=== PATIENT | male | born 1955 | race Caucasian/White ===

== ENCOUNTER 2018-11-25 23:48 | Inpatient (IN) ==
[2018-11-26] MEDS ORDERED: SODIUM CHLORIDE 0.9% 1000ML 1,000 ML IV ONE ×3 (00:03→08:55)
[2018-11-26] MEDS ORDERED: ONDANSETRON INJ 2 MG/ML 2 ML VIAL IV STA (00:03)
[2018-11-26] MEDS ORDERED: MoRPHine SULFATE 4 MG/ML 1 ML CARP\\VIAL IV STA (00:03)
[2018-11-26 00:18] LABS: iSTAT Hemoglobin 15.6 g/dl (14.0-18.0); iSTAT Ionized Calcium 1.19 mmol/l (1.12-1.32)
[2018-11-26 00:25] LABS: Basophils # (auto) 0.01 K/uL (0-0.2); Basophils % (auto) 0.1 %; Eosinophils # (auto) 0.18 K/uL (0-0.5); Eosinophils % (auto) 1.5 %; Hemoglobin 15.1 g/dL (14.0-18.0); Immature Granulocytes # (auto) 0.02 K/uL (0.00-0.02); Immature Granulocytes % (auto) 0.2 %; Lymphocytes # (auto) 4.19 K/uL (1.2-3.4); Lymphocytes % (auto) 35.6 %; Mean Corpuscular Hgb Conc 34.3 g/dL (32-36); Mean Platelet Volume 11.9 fL (7.4-10.4); Monocytes # (auto) 0.62 K/uL (0.11-0.59); Monocytes % (auto) 5.3 %; Neutrophils # (auto) 6.74 K/uL (1.4-6.5); Neutrophils % (auto) 57.3 %; Platelet Count 259 K/uL (130-400); RDW Coefficient of Variation 13.8 % (11.5-14.5); RDW Standard Deviation 50.7 fL (36.4-46.3); White Blood Count 11.76 K/uL (4.8-10.8)
[2018-11-26] MEDS ORDERED: HYDROmorphone INJ 1 MG/ML SYRINGE IV STA ×3 (00:37→01:15)
[2018-11-26 00:45] LABS: Alanine Aminotransferase 19 U/L (12-78); Aspartate Aminotransferase 17 U/L (15-37); BUN Creatinine Ratio 10.6 (10-20); Blood Urea Nitrogen 22 mg/dl (7-18); Calcium 9.4 mg/dl (8.5-10.1); Carbon Dioxide 24 mmol/L (21-32); Chloride 107 mmol/L (98-107); Creatinine Clr Calc Pharmacy 41.6 ml/min; Est GFR (African American) 38.4; Est GFR (Non-African American) 33.1; Glucose 157 mg/dl (70-99); Potassium 3.4 mmol/L (3.5-5.1); Sodium 140 mmol/L (136-145)
[2018-11-26 00:50] LABS: Albumin Globulin Ratio 1.2 (0.9-2); Alkaline Phosphatase 64 U/L (45-117); Bilirubin,Total 0.4 mg/dl (0.2-1); Globulin 3.4 gm/dl (2.5-4.0); Total Protein 7.4 gm/dl (6.4-8.2); Troponin I < 0.015 ng/ml (0-0.045)
[2018-11-26] MEDS ORDERED: IOVERSOL 100ml IV PRN (00:56)
[2018-11-26] MEDS ORDERED: SODIUM CHLORIDE 0.9% 250 ML IV PRN (01:06)
[2018-11-26] MEDS ORDERED: PIPERACILL/TAZOBAC CONSULT ACTIVE PRN ×2 (01:19→07:48)
[2018-11-26] MEDS ORDERED: PIPERACILLIN/TAZOBACTAM 4.5 GM/120 ML BAG IV ONE (01:19)
[2018-11-26] MEDS ORDERED: LORazepam 2 MG/4 ML VIAL ONE (01:26)
[2018-11-26] MEDS ORDERED: LORazepam 1 MG/2 ML VIAL IV STA ×2 (01:27→01:46)
[2018-11-26 01:43] LABS: Appearance Urine Clear (Clear); Bacteria Urine Automated Negative (Negative); Bilirubin Urine Negative (Negative); Color Urine Yellow; Epithelial Cell Urine Auto 0-5 /lpf (0-5); Glucose Urine UA Negative (Negative); Ketones Urine Negative (Negative); Leukocyte Esterase Urine Negative (Negative); Nitrite Urine Negative (Negative); Protein Urine Negative (Negative); Specific Gravity Urine 1.015 (1.000-1.030); Urobilinogen Urine Negative (Negative); pH Urine 5.5 (4.5-7.5)
[2018-11-26 02:02] LABS: Creatine Kinase 68 U/L (39-308)
[2018-11-26] MEDS ORDERED: POTASSIUM CHLORIDE 20 MEQ TABCR PO STA (02:03)
[2018-11-26] MEDS ORDERED: AMLODIPINE BESYLATE 5 MG TAB PO STA (02:08)
[2018-11-26 02:21] LABS: Magnesium 2.4 mg/dl (1.8-2.4)
[2018-11-26 02:27] LABS: Allen Test Pos (Pos); HCO3 ABG 22 mmol/L (19-24); PCO2 ABG 47 mmHg (35-46); PO2 ABG 87 mm/Hg (80-95)
[2018-11-26 02:28] LABS: Amphetamines+Metham, Urine Neg (Neg); Barbiturates, Urine Neg (Neg); Benzodiazepine, Urine Neg (Neg); Cocaine, Urine Neg (Neg); MDMA (Ecstacy), Urine Neg (Neg); Methadone, Urine Neg (Neg); Opiate, Urine Neg (Neg); Phencyclidine, Urine Neg (Neg)
[2018-11-26 02:42] LABS: Partial Thromboplastin Ratio 0.8; Partial Thromboplastin Time 20.8 Seconds (21.0-31.0)
[2018-11-26 02:43] LABS: Calcium 8.2 mg/dl (8.5-10.1); Creatinine Clr Calc Pharmacy 47.8 ml/min; Est GFR (African American) 45.4; Est GFR (Non-African American) 39.2; Potassium 3.7 mmol/L (3.5-5.1)
--- NOTE | 2018-11-26 02:46 | History & Physical Report ---
Date of Service November 26, 2018 Assessment & Plan (1) Hypertensive urgency: Secondary to abdominal symptoms hx HTN as per outpatient records, medication noncompliance. Abdominal pain secondary to urinary retention causing bilateral hydroureteronephrosis Rule out cholecystitis given gallbladder distention on CT No jose sepsis for now ARF secondary to obstructive uropathy Hyperglycemia rule out DM past alcohol abuse Ongoing tobacco abuse Medical telemetry for uncontrolled blood pressure Initiate Norvasc (patient agrees to take in the hospital for now ) analgesia Gallbladder ultrasound rule out cholecystitis Maintain Bynum catheter for now urology consult RE obstructive uropathy Check hemoglobin A1c nicotine patch PRN DVT prophylaxis. SCDs for now, patient may need surgical intervention for gallbladder if cholecystitis found Full code Patient requesting to be set up with [facility] for PCP services on discharge. History of Present Illness Chief Complaint: Abdominal pain Primary Care Provider: No PCP History obtained from patient and records. Medical history significant for hypertension, ongoing tobacco abuse, past tobacco abuse. Few days history of achy upper abdominal pain going down with nausea, emesis. No chest pain, no S OB no cough symptoms. No fever, no chills. Good BM. Denies urinary retention. Patient admits to taking 's home Suboxone prescription due to intractable pain. Patient consulted ER for intractable symptoms. At the ER, Bynum catheter placed for urinary retention subsequently emptying 2 L of urine. Patient currently more comfortable. 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 Allergies Allergy/AdvReac Type Severity Reaction Status Date / Time No Known Allergies Allergy Unverified 11/26/18 00:21 Home Medications Home Medications Medication Instructions Recorded Confirmed Type No Known Home Medications 11/26/18 11/26/18 History Past Med/Surg History Medical History No acute medical problems Social History Preferred Language: Mauritian Communication Ability: Effective Insurance Application Investigator Required: No Beliefs That Will Affect Care: None Current Living Situation: Spouse Current Living Situation Comment: WITH Other Information That Helps Us Care for You: No Feels Safe at Home: Yes Safety Concerns: Feels Safe At This Time Smoking Status: Current every day smoker Tobacco Type: cigarettes Cigarettes Per Day: 20 PER DAY/1 PACK A DAY Do You Dip or Chew Tobacco: No Second Hand Exposure: No Tobacco Cessation Education Requested by Patient: No Hx Alcohol Use: No Hx Substance Use: No Review of Systems Review of Systems: As per HPI, all 10 systems reviewed, all other ROS negative Physical Exam Physical Exam: GENERAL: Slightly uncomfortable, no respiratory distress, tremulous SKIN: Normal color, warm HEENT: Roberta palpebral conjunctivae, no ptosis, dry buccal mucosa NECK : Supple, no tenderness CHEST : CTA, no tenderness HEART : Tachycardic, no obvious murmurs ABDOMEN: Some distention, epigastric tenderness EXTREMITIES : No LE swelling/tenderness, no other conspicuous deformities noted NEUROLOGIC : Coherent, no facial asymmetry, tremulous Results & Data Vital Signs (Past 12 Hours) Vital Signs Pulse Pulse Resp BP BP Pulse Ox 11/26/18 02:00 102 H 18 157/72 H 94 11/26/18 01:31 104 H 20 190/109 H 94 11/26/18 01:29 22 96 11/26/18 01:16 104 H 142/113 H 98 11/26/18 01:15 104 H 97 11/26/18 01:12 109 H 149/109 H 89 L 11/26/18 01:01 97 H 29 H 169/96 H 11/26/18 00:59 101 H 23 152/100 H 11/26/18 00:50 102 H 22 152/100 H 92 11/26/18 00:45 103 H 24 11/26/18 00:40 96 H 25 H 11/26/18 00:38 143/110 H 11/26/18 00:07 97 11/25/18 23:55 83 20 145/88 H 94 11/25/18 23:51 90 28 H 145/88 H 97 Laboratory Results Laboratory Results WBC 11.76 K/uL (4.8-10.8) H 11/25/18 23:28 RBC 4.40 M/uL (4.7-6.1) L 11/25/18 23:28 Hgb 15.1 g/dL (14.0-18.0) 11/25/18 23:28 POC Hgb 15.6 g/dl (14.0-18.0) 11/26/18 00:06 Hct 44.0 % (42-52) 11/25/18 23: POC Hct 46 % (42-52) 11/26/18 00:06 MCV 100.0 fL (80-100) 11/25/18 23: MCH 34.3 pg (25-34) H 11/25/18 23: MCHC 34.3 g/dL (32-36) 11/25/18: RDW Std Deviation 50.7 fL (36.4-46.3) H 11/25/18: RDW Coeff of Carla 13.8 % (11.5-14.5) 11/25/18: Plt Count 259 K/uL (130-400) 11/25/18: MPV 11.9 fL (7.4-10.4) H 11/25/18 23: Immature Gran % (Auto) 0.2 % 11/25/18 23: Neut % (Auto) 57.3 % 11/25/18 23: Lymph % (Auto) 35.6 % 11/25/18 23: Dougherty % (Auto) 5.3 % 11/25/18 23: Eos % (Auto) 1.5 % 11/25/18: Baso % (Auto) 0.1 % 11/25/18: Immature Gran # (Auto) 0.02 K/uL (0.00-0.02) 11/25/18: Neut # (Auto) 6.74 K/uL (1.4-6.5) H 11/25/18: Lymph # (Auto) 4.19 K/uL (1.2-3.4) H 11/25/18 23:28 Dougherty # (Auto) 0.62 K/uL (0.11-0.59) H 11/25/18: Eos # (Auto) 0.18 K/uL (0-0.5) 11/25/18: Baso # (Auto) 0.01 K/uL (0-0.2) 11/25/18 23: ABG pH 7.30 (7.35-7.45) L 11/26/18 02:17 ABG pCO2 47 mmHg (35-46) H 11/26/18 02:17 ABG pO2 87 mm/Hg (80-95) 11/26/18 02:17 ABG HCO3 22 mmol/L (19-24) 11/26/18 02:17 ABG O2 Saturation 96.0 % (90-95) H 11/26/18 02:17 ABG Base Excess -4.2 mEq/L (-9-1.8) 11/26/18 02:17 Jay Test Pos (Pos) 11/26/18 02:17 Oxygen Given 3L 11/26/18 02:17 POC Sodium 142 mEq/L (135-144) 11/26/18 00:06 Sodium 142 mmol/L (136-145) 11/26/18 02:08 POC Potassium 3.5 mEq/L (3.3-5.0) 11/26/18 00:06 Potassium 3.7 mmol/L (3.5-5.1) 11/26/18 02:08 POC Chloride 105 mEq/L (101-112) 11/26/18 00:06 Chloride 111 mmol/L (98-107) H 11/26/18 02:08 Carbon Dioxide 25 mmol/L (21-32) 11/26/18 02:08 POC Total CO2 25 mEq/l (24-31) 11/26/18 00:06 Anion Gap 6.0 (3-11) 11/26/18 02:08 POC Anion Gap 16.0 mmol/L (16-25) 11/26/18 00:06 POC BUN 25 mg/dl (7-18) H 11/26/18 00:06 BUN 22 mg/dl (7-18) H 11/26/18 02:08 Creatinine 1.81 mg/dl (0.6-1.4) H 11/26/18 02:08 POC Creatinine 2.2 mg/dl (0.6-1.3) H 11/26/18 00:06 Est Cr Clr Drug Dosing 47.8 ml/min 11/26/18 02:08 Est GFR ( Amer) 45.4 11/26/18 02:08 Est GFR (Non-Af Amer) 39.2 11/26/18 02:08 BUN/Creatinine Ratio 12.0 (10-20) 11/26/18 02:08 Glucose 185 mg/dl (70-99) H 11/26/18 02:08 POC Glucose (other) 171 mg/dl (70-99) H 11/26/18 00:06 Lactate 1.9 mmol/L (0.4-2.0) 11/26/18 02:17 Calcium 8.2 mg/dl (8.5-10.1) L 11/26/18 02:08 POC Ioniz Calcium Damon 1.19 mmol/l (1.12-1.32) 11/26/18 00:06 Magnesium 2.4 mg/dl (1.8-2.4) 11/25/18 23:28 Total Bilirubin 0.4 mg/dl (0.2-1) 11/25/18 23:28 AST 17 U/L (15-37) 11/25/18 23:28 ALT 19 U/L (12-78) 11/25/18 23:28 Alkaline Phosphatase 64 U/L (45-117) 11/25/18 23:28 Total Creatine Kinase 68 U/L (39-308) 11/25/18 23:28 Troponin I < 0.015 ng/ml (0-0.045) 11/25/18 23:28 Total Protein 7.4 gm/dl (6.4-8.2) 11/25/18 23:28 Albumin 4.0 gm/dl (3.4-5.0) 11/25/18 23:28 Globulin 3.4 gm/dl (2.5-4.0) 11/25/18 23:28 Albumin/Globulin Ratio 1.2 (0.9-2) 11/25/18 23:28 Lipase 128 U/L (73-393) 11/25/18 23:28 TSH 5.320 uIu/ml (0.300-4.500) H 11/25/18 23:28 Urine Color Yellow 11/26/18 01:18 Urine Appearance Clear (Clear) 11/26/18 01:18 Urine pH 5.5 (4.5-7.5) 11/26/18 01:18 Ur Specific [place] 1.015 (1.000-1.030) 11/26/18 01:18 Urine Protein Negative (Negative) 11/26/18 01:18 Urine Glucose (UA) Negative (Negative) 11/26/18 01:18 Urine Ketones Negative (Negative) 11/26/18 01:18 Urine Blood 1+ (Negative) H 11/26/18 01:18 Urine Nitrite Negative (Negative) 11/26/18 01:18 Urine Bilirubin Negative (Negative) 11/26/18 01:18 Urine Urobilinogen Negative (Negative) 11/26/18 01:18 Ur Leukocyte Esterase Negative (Negative) 11/26/18 01:18 Urine WBC (Auto) 1-5 /hpf (0-5) 11/26/18 01:18 Urine RBC (Auto) 5-10 /hpf (0-4) H 11/26/18 01:18 U Hyaline Cast (Auto) 1-5 /lpf (0-5) 11/26/18 01:18 U Epithel Cells (Auto) 0-5 /lpf (0-5) 11/26/18 01:18 Urine Bacteria (Auto) Negative (Negative) 11/26/18 01:18 Urine Opiates Screen Neg (Neg) 11/26/18 01:18 Ur Methadone, Qual Neg (Neg) 11/26/18 01:18 Urine Barbiturates Neg (Neg) 11/26/18 01:18 Ur Phencyclidine (PCP) Neg (Neg) 11/26/18 01:18 U Amphetamin/Meth Scrn Neg (Neg) 11/26/18 01:18 MDMA (Ecstasy) Screen Neg (Neg) 11/26/18 01:18 U Benzodiazepines Scrn Neg (Neg) 11/26/18 01:18 Ur Cocaine Metabolite Neg (Neg) 11/26/18 01:18 U Marijuana (THC) Screen Neg (Neg) 11/26/18 01:18 Ethyl Alcohol mg/dL < 3.0 mg/dl (0-3) 11/26/18 02:08 Blood Type O Positive 11/26/18 00:38 Antibody Screen NEGATIVE 11/26/18 00:38 Crossmatch See Detail 11/26/18 00:38 Diagnostic Findings Chest initial read: No central PE. No consolidation. Dependent atelectasis, posterior lower lobes. Paraseptal emphysema. CT abdomen pelvis initial read. Moderate bilateral hydroureteronephrosis. Bilateral renal cysts. No shadowing renal calculi. Distended gallbladder. Distended bladder with adjacent stranding. No colitis. Small perihepatic ascites/perisplenic ascites. EKG as per my interpretation rate 80, NSR, RAD, T wave flattening septal leads
[2018-11-26] MEDS ORDERED: LORazepam 0.25 MG/0.5 ML VIAL IV PRN (02:49)
[2018-11-26] MEDS ORDERED: PROMETHAZINE HCL 12.5 MG in SODIUM CHLORIDE 0.9% 50 ML IV PRN (02:49)
[2018-11-26] MEDS ORDERED: HYDROmorphone INJ 0.5 MG/0.5 ML SYR IV PRN (02:49)
[2018-11-26] MEDS ORDERED: OXYCODONE HCL IR 5 MG TAB (IMMEDIATE RELEASE) PO PRN (02:49)
[2018-11-26] MEDS ORDERED: ACETAMINOPHEN 325 MG TAB PO PRN (02:53)
[2018-11-26] MEDS ORDERED: LACTATED RINGER'S 1,000 ML IV SCH (03:00)
--- NOTE | 2018-11-26 03:12 | Emergency Department Note ---
History of Present Illness General Chief complaint: Abdominal Pain Stated complaint: syncope History of Present Illness Maximum Pain Intensity: 10 This 63-year-old presents to the ER complaining of severe abdominal pain with diaphoresis and syncope Location: Abdomen Quality: Severe Severity: Severe Duration: 4 days Timing: Started 4 days ago Context: Patient became diaphoretic and was passing out and EMS was summoned Modifying factors: better with nothing; worse with movement Patient complains of severe abdominal pain with diaphoresis and passing out. Patient does not routinely see the family doctor. No prior surgeries. He smokes. No alcohol or drug use. Patient states he started with epigastric pain and now is throughout his abdomen. Patient states it is so severe his abdomen is distended and he can barely breathe. Patient states he is urinating and defecating without issue. Patient denies chest pain, fevers, vomiting, diarrhea. Home Medications Home Medications Medication Instructions Recorded Confirmed Type No Known Home Medications 11/26/18 11/26/18 History Allergies Allergy/AdvReac Type Severity Reaction Status Date / Time No Known Allergies Allergy Unverified 11/26/18 00:21 Past Med/Surg History Medical History No acute medical problems Social History Feels Safe at Home: Yes Smoking Status: Unknown if ever smoked Review of Systems All systems reviewed & are unremarkable except as noted in HPI & below Physical Exam Vital Signs Vital Signs - 24 hr 11/25/18 23:51 11/25/18 23:55 11/26/18 00:07 Sepsis Recent Fever Within 48 Hours No Sepsis New/Unexplained Change in Mental Status No Sepsis Action Taken by Nursing No Action Required Pulse Rate 90 83 Pulse Rate [Bilateral] Pulse Rate from SpO2 Sensor 90 91 H Pulse Rhythm [Bilateral] Respiratory Rate 28 H 20 Respiratory Effort / Characteristics Respiratory Depth Normal Respiratory Pattern Blood Pressure 145/88 H 145/88 H Blood Pressure [Right Arm] Blood Pressure Mean 107 107 Blood Pressure Mean [Right Arm] Blood Pressure Position [Right Arm] Pulse Oximetry 97 94 97 Oxygen Delivery Method Room Air Oxygen Flow Rate 11/26/18 00:38 11/26/18 00:40 11/26/18 00:45 Sepsis Recent Fever Within 48 Hours Sepsis New/Unexplained Change in Mental Status Sepsis Action Taken by Nursing Pulse Rate 96 H 103 H Pulse Rate [Bilateral] Pulse Rate from SpO2 Sensor Pulse Rhythm [Bilateral] Respiratory Rate 25 H 24 Respiratory Effort / Characteristics Respiratory Depth Respiratory Pattern Blood Pressure 143/110 H Blood Pressure [Right Arm] Blood Pressure Mean 121 Blood Pressure Mean [Right Arm] Blood Pressure Position [Right Arm] Pulse Oximetry Oxygen Delivery Method Oxygen Flow Rate 11/26/18 00:50 11/26/18 00:59 11/26/18 01:01 Sepsis Recent Fever Within 48 Hours Sepsis New/Unexplained Change in Mental Status Sepsis Action Taken by Nursing Pulse Rate 101 H 97 H Pulse Rate [Bilateral] 102 H Pulse Rate from SpO2 Sensor Pulse Rhythm [Bilateral] Respiratory Rate 22 23 29 H Respiratory Effort / Characteristics Non-Labored Spontaneous Respiratory Depth Normal Respiratory Pattern Blood Pressure 152/100 H 169/96 H Blood Pressure [Right Arm] 152/100 H Blood Pressure Mean 117 120 Blood Pressure Mean [Right Arm] 117 Blood Pressure Position [Right Arm] Lying Pulse Oximetry 92 Oxygen Delivery Method Room Air Oxygen Flow Rate 11/26/18 01:12 11/26/18 01:15 11/26/18 01:16 Sepsis Recent Fever Within 48 Hours Sepsis New/Unexplained Change in Mental Status Sepsis Action Taken by Nursing Pulse Rate 109 H 104 H 104 H Pulse Rate [Bilateral] Pulse Rate from SpO2 Sensor 109 H 104 H 103 H Pulse Rhythm [Bilateral] Respiratory Rate Respiratory Effort / Characteristics Respiratory Depth Respiratory Pattern Blood Pressure 149/109 H 142/113 H Blood Pressure [Right Arm] Blood Pressure Mean 122 122 Blood Pressure Mean [Right Arm] Blood Pressure Position [Right Arm] Pulse Oximetry 89 L 97 98 Oxygen Delivery Method Room Air Oxygen Flow Rate 11/26/18 01:29 11/26/18 01:31 11/26/18 02:00 Sepsis Recent Fever Within 48 Hours Sepsis New/Unexplained Change in Mental Status Sepsis Action Taken by Nursing Pulse Rate Pulse Rate [Bilateral] 104 H 102 H Pulse Rate from SpO2 Sensor Pulse Rhythm [Bilateral] Regular Respiratory Rate 22 20 18 Respiratory Effort / Characteristics Non-Labored Spontaneous Non-Labored Spontaneous Respiratory Depth Normal Normal Respiratory Pattern Regular Blood Pressure Blood Pressure [Right Arm] 190/109 H 157/72 H Blood Pressure Mean Blood Pressure Mean [Right Arm] 136 100 Blood Pressure Position [Right Arm] Lying Pulse Oximetry 96 94 94 Oxygen Delivery Method Nasal Cannula Nasal Cannula Nasal Cannula Oxygen Flow Rate 3 4 2 VITALS: Vitals are noted on the nurse's note and reviewed by myself. Vital signs tachycardic. GENERAL: Pale diaphoretic male who appears in acute distress. SKIN: Diaphoretic, the skin was without rashes, erythema, edema, or bruising. There is no tenting of the skin. Capillary reflex less than 2 seconds. HEAD: Normocephalic atraumatic. EARS: External auditory canals clear, tympanic membranes pearly taylor without erythema or effusion bilaterally. EYES: Pupils equal round and reactive to light and accommodation. Conjunctivae without injection, sclerae without icterus. Extraocular movements intact. NOSE: Patent, turbinates without inflammation or discharge. MOUTH: Mucous membranes moist. Pharynx without erythema or exudate. Uvula midline. Airway patent. Tongue does not deviate. NECK: Supple without nuchal rigidity. No lymphadenopathy. No thyromegaly. Cervical spine is nontender. No JVD. HEART: Regular rate and rhythm without murmurs gallops or rubs. LUNGS: Clear to auscultation bilaterally without wheezes, rales or rhonchi. No retractions or accessory muscle use. ABDOMEN: Positive bowel sounds x 4. Normal tympanic percussion. Soft, distended, diffusely tender to palpation, without masses or organomegaly. Red sign negative. No guarding or rebound tenderness. No CVA tenderness MUSCULOSKELETAL: No muscle atrophy, erythema, or edema noted. NEURO: Patient was alert and oriented to person place and time. Normal sensation to light and sharp touch. No focal neurological deficits. Course Administered Medications Ioversol (Optiray 320 100ml) 100 ml IV ONCE PRN PRN Reason: Interaction Checking Stop: 11/30/18 00:55 Last Admin: 11/26/18 00:56 Dose: 51 ml Documented by: [id number] Discontinued Medications Hydromorphone HCl (Dilaudid) 1 mg IV NOW STA Stop: 11/26/18 00:38 Last Admin: 11/26/18 00:45 Dose: 1 mg Documented by: [id number] Hydromorphone HCl (Dilaudid) 1 mg IV NOW STA Stop: 11/26/18 00:51 Last Admin: 11/26/18 00:56 Dose: 1 mg Documented by: [id number] Hydromorphone HCl (Dilaudid) 1 mg IV NOW STA Stop: 11/26/18 01:16 Last Admin: 11/26/18 01:20 Dose: 1 mg Documented by: [id number] Sodium Chloride (Nss 1000ml) 1,000 mls @ 999 mls/hr IV .Q1H1M ONE Stop: 11/26/18 01:03 Last Infusion: 11/26/18 01:35 Dose: 0 mls/hr Documented by: [id number] Admin: 11/26/18 00:42 Dose: 999 mls/hr Documented by: [id number] Sodium Chloride (Nss 1000ml) 1,000 mls @ 999 mls/hr IV .Q1H1M ONE Stop: 11/26/18 01:37 Last Infusion: 11/26/18 02:08 Dose: 0 mls/hr Documented by: [id number] Admin: 11/26/18 00:46 Dose: 999 mls/hr Documented by: [id number] Piperacillin Sod/Tazobactam Sod (Zosyn) 4.5 gm in 120 mls @ 240 mls/hr IV NOW ONE Stop: 11/26/18 01:48 Last Infusion: 11/26/18 03:07 Dose: 0 mls/hr Documented by: [id number] Admin: 11/26/18 01:28 Dose: 240 mls/hr Documented by: [id number] Lorazepam (Ativan) 1 mg in 2 mls @ 2 mls/min IV NOW STA Stop: 11/26/18 01:28 Last Admin: 11/26/18 01:29 Dose: Not Given Documented by: [id number] Lorazepam (Ativan) 1 mg in 2 mls @ 2 mls/min IV NOW STA Stop: 11/26/18 01:47 Last Admin: 11/26/18 01:49 Dose: 2 mls/min Documented by: [id number] Lorazepam (Ativan) Confirm Administered Dose 2 mg .ROUTE .STK-MED ONE Stop: 11/26/18 01:27 Last Admin: 11/26/18 01:28 Dose: 2 mg Documented by: [id number] Morphine Sulfate (Morphine Sulfate) 4 mg IV NOW STA Stop: 11/26/18 00:04 Last Admin: 11/26/18 00:42 Dose: 4 mg Documented by: [id number] Ondansetron HCl (Zofran) 4 mg IV NOW STA Stop: 11/26/18 00:04 Last Admin: 11/26/18 00:42 Dose: 4 mg Documented by: [id number] Medical Decision Making Medical Records Attestation: I reviewed the patient's medical records. Home Medications Current Medication List: was personally reviewed by me Laboratory Data Result diagrams: 11/25/18 23:28 11/26/18 02:08 Lab Results 11/25/18 11/25/18 11/25/18 Range/Units 23:28 23:28 23:28 WBC 11.76 H (4.8-10.8) K/uL RBC 4.40 L (4.7-6.1) M/uL Hgb 15.1 (14.0-18.0) g/dL POC Hgb (14.0-18.0) g/dl Hct 44.0 (42-52) % POC Hct (42-52) % MCV 100.0 (80-100) fL MCH 34.3 H (25-34) pg MCHC 34.3 (32-36) g/dL RDW Std Deviation 50.7 H (36.4-46.3) fL RDW Coeff of Carla 13.8 (11.5-14.5) % Plt Count 259 (130-400) K/uL MPV 11.9 H (7.4-10.4) fL Immature Gran % (Auto) 0.2 % Neut % (Auto) 57.3 % Lymph % (Auto) 35.6 % [place] % (Auto) 5.3 % Eos % (Auto) 1.5 % Baso % (Auto) 0.1 % Immature Gran # (Auto) 0.02 (0.00-0.02) K/uL Neut # (Auto) 6.74 H (1.4-6.5) K/uL Lymph # (Auto) 4.19 H (1.2-3.4) K/uL [place] # (Auto) 0.62 H (0.11-0.59) K/uL Eos # (Auto) 0.18 (0-0.5) K/uL Baso # (Auto) 0.01 (0-0.2) K/uL APTT 20.8 L (21.0-31.0) Seconds PTT Ratio 0.8 ABG pH (7.35-7.45) ABG pCO2 (35-46) mmHg ABG pO2 (80-95) mm/Hg ABG HCO3 (19-24) mmol/L ABG O2 Saturation (90-95) % ABG Base Excess (-9-1.8) mEq/L Jay Test (Pos) Oxygen Given POC Sodium (135-144) mEq/L Sodium 140 (136-145) mmol/L POC Potassium (3.3-5.0) mEq/L Potassium 3.4 L (3.5-5.1) mmol/L POC Chloride (101-112) mEq/L Chloride 107 (98-107) mmol/L Carbon Dioxide 24 (21-32) mmol/L POC Total CO2 (24-31) mEq/l Anion Gap 9.0 (3-11) POC Anion Gap (16-25) mmol/L POC BUN (7-18) mg/dl BUN 22 H (7-18) mg/dl Creatinine 2.08 H (0.6-1.4) mg/dl POC Creatinine (0.6-1.3) mg/dl Est Cr Clr Drug Dosing 41.6 ml/min Est GFR ( Amer) 38.4 Est GFR (Non-Af Amer) 33.1 BUN/Creatinine Ratio 10.6 (10-20) Glucose 157 H (70-99) mg/dl POC Glucose (other) (70-99) mg/dl Lactate (0.4-2.0) mmol/L Calcium 9.4 (8.5-10.1) mg/dl POC Ioniz Calcium Damon (1.12-1.32) mmol/l Magnesium 2.4 (1.8-2.4) mg/dl Total Bilirubin 0.4 (0.2-1) mg/dl AST 17 (15-37) U/L ALT 19 (12-78) U/L Alkaline Phosphatase 64 (45-117) U/L Total Creatine Kinase 68 (39-308) U/L Troponin I < 0.015 (0-0.045) ng/ml Total Protein 7.4 (6.4-8.2) gm/dl Albumin 4.0 (3.4-5.0) gm/dl Globulin 3.4 (2.5-4.0) gm/dl Albumin/Globulin Ratio 1.2 (0.9-2) Lipase 128 (73-393) U/L Procalcitonin (0-0.5) ng/ml TSH 5.320 H (0.300-4.500) uIu/ml Urine Color Urine Appearance (Clear) Urine pH (4.5-7.5) Ur Specific Graham (1.000-1.030) Urine Protein (Negative) Urine Glucose (UA) (Negative) Urine Ketones (Negative) Urine Blood (Negative) Urine Nitrite (Negative) Urine Bilirubin (Negative) Urine Urobilinogen (Negative) Ur Leukocyte Esterase (Negative) Urine WBC (Auto) (0-5) /hpf Urine RBC (Auto) (0-4) /hpf U Hyaline Cast (Auto) (0-5) /lpf U Epithel Cells (Auto) (0-5) /lpf Urine Bacteria (Auto) (Negative) Urine Opiates Screen (Neg) Ur Methadone, Qual (Neg) Urine Barbiturates (Neg) Ur Phencyclidine (PCP) (Neg) U Amphetamin/Meth Scrn (Neg) MDMA (Ecstasy) Screen (Neg) U Benzodiazepines Scrn (Neg) Ur Cocaine Metabolite (Neg) U Marijuana (THC) Screen (Neg) Ethyl Alcohol mg/dL (0-3) mg/dl Blood Type Antibody Screen Crossmatch 11/25/18 11/26/18 11/26/18 Range/Units 23:28 00:06 00:38 WBC (4.8-10.8) K/uL RBC (4.7-6.1) M/uL Hgb (14.0-18.0) g/dL POC Hgb 15.6 (14.0-18.0) g/dl Hct (42-52) % POC Hct 46 (42-52) % MCV (80-100) fL MCH (25-34) pg MCHC (32-36) g/dL RDW Std Deviation (36.4-46.3) fL RDW Coeff of Carla (11.5-14.5) % Plt Count (130-400) K/uL MPV (7.4-10.4) fL Immature Gran % (Auto) % Neut % (Auto) % Lymph % (Auto) % [place] % (Auto) % Eos % (Auto) % Baso % (Auto) % Immature Gran # (Auto) (0.00-0.02) K/uL Neut # (Auto) (1.4-6.5) K/uL Lymph # (Auto) (1.2-3.4) K/uL [place] # (Auto) (0.11-0.59) K/uL Eos # (Auto) (0-0.5) K/uL Baso # (Auto) (0-0.2) K/uL APTT (21.0-31.0) Seconds PTT Ratio ABG pH (7.35-7.45) ABG pCO2 (35-46) mmHg ABG pO2 (80-95) mm/Hg ABG HCO3 (19-24) mmol/L ABG O2 Saturation (90-95) % ABG Base Excess (-9-1.8) mEq/L Jay Test (Pos) Oxygen Given POC Sodium 142 (135-144) mEq/L Sodium (136-145) mmol/L POC Potassium 3.5 (3.3-5.0) mEq/L Potassium (3.5-5.1) mmol/L POC Chloride 105 (101-112) mEq/L Chloride (98-107) mmol/L Carbon Dioxide (21-32) mmol/L POC Total CO2 25 (24-31) mEq/l Anion Gap (3-11) POC Anion Gap 16.0 (16-25) mmol/L POC BUN 25 H (7-18) mg/dl BUN (7-18) mg/dl Creatinine (0.6-1.4) mg/dl POC Creatinine 2.2 H (0.6-1.3) mg/dl Est Cr Clr Drug Dosing ml/min Est GFR ( Amer) Est GFR (Non-Af Amer) BUN/Creatinine Ratio (10-20) Glucose (70-99) mg/dl POC Glucose (other) 171 H (70-99) mg/dl Lactate (0.4-2.0) mmol/L Calcium (8.5-10.1) mg/dl POC Ioniz Calcium Damon 1.19 (1.12-1.32) mmol/l Magnesium (1.8-2.4) mg/dl Total Bilirubin (0.2-1) mg/dl AST (15-37) U/L ALT (12-78) U/L Alkaline Phosphatase (45-117) U/L Total Creatine Kinase (39-308) U/L Troponin I (0-0.045) ng/ml Total Protein (6.4-8.2) gm/dl Albumin (3.4-5.0) gm/dl Globulin (2.5-4.0) gm/dl Albumin/Globulin Ratio (0.9-2) Lipase (73-393) U/L Procalcitonin 0.06 (0-0.5) ng/ml TSH (0.300-4.500) uIu/ml Urine Color Urine Appearance (Clear) Urine pH (4.5-7.5) Ur Specific [place] (1.000-1.030) Urine Protein (Negative) Urine Glucose (UA) (Negative) Urine Ketones (Negative) Urine Blood (Negative) Urine Nitrite (Negative) Urine Bilirubin (Negative) Urine Urobilinogen (Negative) Ur Leukocyte Esterase (Negative) Urine WBC (Auto) (0-5) /hpf Urine RBC (Auto) (0-4) /hpf U Hyaline Cast (Auto) (0-5) /lpf U Epithel Cells (Auto) (0-5) /lpf Urine Bacteria (Auto) (Negative) Urine Opiates Screen (Neg) Ur Methadone, Qual (Neg) Urine Barbiturates (Neg) Ur Phencyclidine (PCP) (Neg) U Amphetamin/Meth Scrn (Neg) MDMA (Ecstasy) Screen (Neg) U Benzodiazepines Scrn (Neg) Ur Cocaine Metabolite (Neg) U Marijuana (THC) Screen (Neg) Ethyl Alcohol mg/dL (0-3) mg/dl Blood Type O Positive Antibody Screen NEGATIVE Crossmatch See Detail 11/26/18 11/26/18 11/26/18 Range/Units 01:18 01:18 02:08 WBC (4.8-10.8) K/uL RBC (4.7-6.1) M/uL Hgb (14.0-18.0) g/dL POC Hgb (14.0-18.0) g/dl Hct (42-52) % POC Hct (42-52) % MCV (80-100) fL MCH (25-34) pg MCHC (32-36) g/dL RDW Std Deviation (36.4-46.3) fL RDW Coeff of Carla (11.5-14.5) % Plt Count (130-400) K/uL MPV (7.4-10.4) fL Immature Gran % (Auto) % Neut % (Auto) % Lymph % (Auto) % [place] % (Auto) % Eos % (Auto) % Baso % (Auto) % Immature Gran # (Auto) (0.00-0.02) K/uL Neut # (Auto) (1.4-6.5) K/uL Lymph # (Auto) (1.2-3.4) K/uL [place] # (Auto) (0.11-0.59) K/uL Eos # (Auto) (0-0.5) K/uL Baso # (Auto) (0-0.2) K/uL APTT (21.0-31.0) Seconds PTT Ratio ABG pH (7.35-7.45) ABG pCO2 (35-46) mmHg ABG pO2 (80-95) mm/Hg ABG HCO3 (19-24) mmol/L ABG O2 Saturation (90-95) % ABG Base Excess (-9-1.8) mEq/L Jay Test (Pos) Oxygen Given POC Sodium (135-144) mEq/L Sodium 142 (136-145) mmol/L POC Potassium (3.3-5.0) mEq/L Potassium 3.7 (3.5-5.1) mmol/L POC Chloride (101-112) mEq/L Chloride 111 H (98-107) mmol/L Carbon Dioxide 25 (21-32) mmol/L POC Total CO2 (24-31) mEq/l Anion Gap 6.0 (3-11) POC Anion Gap (16-25) mmol/L POC BUN (7-18) mg/dl BUN 22 H (7-18) mg/dl Creatinine 1.81 H (0.6-1.4) mg/dl POC Creatinine (0.6-1.3) mg/dl Est Cr Clr Drug Dosing 47.8 ml/min Est GFR ( Amer) 45.4 Est GFR (Non-Af Amer) 39.2 BUN/Creatinine Ratio 12.0 (10-20) Glucose 185 H (70-99) mg/dl POC Glucose (other) (70-99) mg/dl Lactate (0.4-2.0) mmol/L Calcium 8.2 L (8.5-10.1) mg/dl POC Ioniz Calcium Damon (1.12-1.32) mmol/l Magnesium (1.8-2.4) mg/dl Total Bilirubin (0.2-1) mg/dl AST (15-37) U/L ALT (12-78) U/L Alkaline Phosphatase (45-117) U/L Total Creatine Kinase (39-308) U/L Troponin I (0-0.045) ng/ml Total Protein (6.4-8.2) gm/dl Albumin (3.4-5.0) gm/dl Globulin (2.5-4.0) gm/dl Albumin/Globulin Ratio (0.9-2) Lipase (73-393) U/L Procalcitonin (0-0.5) ng/ml TSH (0.300-4.500) uIu/ml Urine Color Yellow Urine Appearance Clear (Clear) Urine pH 5.5 (4.5-7.5) Ur Specific [place] 1.015 (1.000-1.030) Urine Protein Negative (Negative) Urine Glucose (UA) Negative (Negative) Urine Ketones Negative (Negative) Urine Blood 1+ H (Negative) Urine Nitrite Negative (Negative) Urine Bilirubin Negative (Negative) Urine Urobilinogen Negative (Negative) Ur Leukocyte Esterase Negative (Negative) Urine WBC (Auto) 1-5 (0-5) /hpf Urine RBC (Auto) 5-10 H (0-4) /hpf U Hyaline Cast (Auto) 1-5 (0-5) /lpf U Epithel Cells (Auto) 0-5 (0-5) /lpf Urine Bacteria (Auto) Negative (Negative) Urine Opiates Screen Neg (Neg) Ur Methadone, Qual Neg (Neg) Urine Barbiturates Neg (Neg) Ur Phencyclidine (PCP) Neg (Neg) U Amphetamin/Meth Scrn Neg (Neg) MDMA (Ecstasy) Screen Neg (Neg) U Benzodiazepines Scrn Neg (Neg) Ur Cocaine Metabolite Neg (Neg) U Marijuana (THC) Screen Neg (Neg) Ethyl Alcohol mg/dL (0-3) mg/dl Blood Type Antibody Screen Crossmatch 11/26/18 11/26/18 11/26/18 Range/Units 02:08 02:17 02:17 WBC (4.8-10.8) K/uL RBC (4.7-6.1) M/uL Hgb (14.0-18.0) g/dL POC Hgb (14.0-18.0) g/dl Hct (42-52) % POC Hct (42-52) % MCV (80-100) fL MCH (25-34) pg MCHC (32-36) g/dL RDW Std Deviation (36.4-46.3) fL RDW Coeff of Carla (11.5-14.5) % Plt Count (130-400) K/uL MPV (7.4-10.4) fL Immature Gran % (Auto) % Neut % (Auto) % Lymph % (Auto) % [place] % (Auto) % Eos % (Auto) % Baso % (Auto) % Immature Gran # (Auto) (0.00-0.02) K/uL Neut # (Auto) (1.4-6.5) K/uL Lymph # (Auto) (1.2-3.4) K/uL [place] # (Auto) (0.11-0.59) K/uL Eos # (Auto) (0-0.5) K/uL Baso # (Auto) (0-0.2) K/uL APTT (21.0-31.0) Seconds PTT Ratio ABG pH 7.30 L (7.35-7.45) ABG pCO2 47 H (35-46) mmHg ABG pO2 87 (80-95) mm/Hg ABG HCO3 22 (19-24) mmol/L ABG O2 Saturation 96.0 H (90-95) % ABG Base Excess -4.2 (-9-1.8) mEq/L Jay Test Pos (Pos) Oxygen Given 3L POC Sodium (135-144) mEq/L Sodium (136-145) mmol/L POC Potassium (3.3-5.0) mEq/L Potassium (3.5-5.1) mmol/L POC Chloride (101-112) mEq/L Chloride (98-107) mmol/L Carbon Dioxide (21-32) mmol/L POC Total CO2 (24-31) mEq/l Anion Gap (3-11) POC Anion Gap (16-25) mmol/L POC BUN (7-18) mg/dl BUN (7-18) mg/dl Creatinine (0.6-1.4) mg/dl POC Creatinine (0.6-1.3) mg/dl Est Cr Clr Drug Dosing ml/min Est GFR ( Amer) Est GFR (Non-Af Amer) BUN/Creatinine Ratio (10-20) Glucose (70-99) mg/dl POC Glucose (other) (70-99) mg/dl Lactate 1.9 (0.4-2.0) mmol/L Calcium (8.5-10.1) mg/dl POC Ioniz Calcium Damon (1.12-1.32) mmol/l Magnesium (1.8-2.4) mg/dl Total Bilirubin (0.2-1) mg/dl AST (15-37) U/L ALT (12-78) U/L Alkaline Phosphatase (45-117) U/L Total Creatine Kinase (39-308) U/L Troponin I (0-0.045) ng/ml Total Protein (6.4-8.2) gm/dl Albumin (3.4-5.0) gm/dl Globulin (2.5-4.0) gm/dl Albumin/Globulin Ratio (0.9-2) Lipase (73-393) U/L Procalcitonin (0-0.5) ng/ml TSH (0.300-4.500) uIu/ml Urine Color Urine Appearance (Clear) Urine pH (4.5-7.5) Ur Specific [place] (1.000-1.030) Urine Protein (Negative) Urine Glucose (UA) (Negative) Urine Ketones (Negative) Urine Blood (Negative) Urine Nitrite (Negative) Urine Bilirubin (Negative) Urine Urobilinogen (Negative) Ur Leukocyte Esterase (Negative) Urine WBC (Auto) (0-5) /hpf Urine RBC (Auto) (0-4) /hpf U Hyaline Cast (Auto) (0-5) /lpf U Epithel Cells (Auto) (0-5) /lpf Urine Bacteria (Auto) (Negative) Urine Opiates Screen (Neg) Ur Methadone, Qual (Neg) Urine Barbiturates (Neg) Ur Phencyclidine (PCP) (Neg) U Amphetamin/Meth Scrn (Neg) MDMA (Ecstasy) Screen (Neg) U Benzodiazepines Scrn (Neg) Ur Cocaine Metabolite (Neg) U Marijuana (THC) Screen (Neg) Ethyl Alcohol mg/dL < 3.0 (0-3) mg/dl Blood Type Antibody Screen Crossmatch Imaging Data Attestation: I personally reviewed and interpreted this imaging study as follows: MDM Narrative Prior records/ancillary studies reviewed. Triage Nursing notes reviewed. Additional history obtained from family. The patient's history was concerning for syncope with diaphoresis and abdominal pain Differential diagnosis: Etiologies such as dissection, fracture, dislocation, intra-abdominal, pneumothorax, intrathoracic , intracranial, neurologic, as well as other traumatic pathologies were entertained. Physical examination findings: As above. The patients vitals were tachycardic ER treatment provided: IV Normal Saline hydration, 2000 mL. 2 IV lines Morphine, Dilaudid, Ativan Antibiotics: Zosyn Procedures: FAST exam On reassessment the patient felt better. Vital signs were improved. Diagnostic interpretation by me: A bedside F.A.S.T ultrasound was performed by me and revealed free fluid in the abdomen. I did notify my attending immediately who did come in the room and visualize the free fluid on ultrasound. A 12 lead ECG revealed no emergent pathology. Normal sinus, normal intervals, no acute ST-T wave changes. Impression sinus tachycardia interpreted by myself I think arrhythmia is unlikely. EKG shows normal sinus rhythm with no interval abnormalities such as QT prolongation or WPW. There are no findings to suggest Brugada syndrome. Cardiac monitoring in the emergency department reveals no tachycardic or bradycardic dysrhythmia. Hypertrophic cardiomyopathy was considered but there are no clear historical elements pointing toward this. EKG is not suggestive. The QRS voltage is not extremely large and there are no suggestive Q waves. The labs revealed leukocytosis. Elevated creatinine. Blood bank sent and patient was typed and crossmatched and consented to blood if needed Imaging studies: CT CHEST With Contrast: No central PE. No consolidation, pleural effusion or pneumothorax. Dependent atelectasis at the posterior lower lobes. Paraseptal emphysema. Please refer to same day CT abdomen pelvis for findings below the diaphragm. No suspicious lytic or sclerotic lesions of bone. Radiologist: Jj Contreras M.D. CT ABDOMEN & PELVIS With Contrast: Moderate bilateral hydroureteronephrosis. Bilateral renal cysts. No shadowing renal calculi or other urolithiasis. Distended gallbladder as well as bladder, both with adjacent stranding. No small bowel obstruction. No colitis. Distal colonic diverticulosis but no acute diverticulitis. Small perihepatic ascites and perisplenic ascites. Few scattered small hepatic hypodensities. Radiologist: Francheska Gallardo Bynum catheter was placed. Urine was sent. Large amount of urine was removed. Consultation: A consultation was placed with the surgeon, Dr. Duncan. The case was discussed and diagnostics were reviewed. He was called in prior to the CT imaging being read by stat read. There were 2 traumas at the same time. He came in for the trauma and did evaluate my patient. He states is nothing surgical recommends medical admission. Dr. Cooper was consulted and will evaluate the patient. Case was reviewed with him. This appears to be consistent with urinary retention with ascites and hydronephrosis with acute renal failure. Medicine was consulted. They will evaluate the patient. Surgery states there is nothing surgical. Patient was reevaluated multiple times. The free fluid on the fast most likely is the ascites. Patient was typed and screened and consented to blood if needed. Patient is agreeable treatment plan of admission. My attending was made immediately aware of this patient duration. Patient was pale diaphoretic and had extreme abdominal pain upon initial evaluation. He did improve after medica tion and Bynum placement. By the evaluation outlined above emergent etiologies such as fracture, dislocation, pneumothorax, pulmonary contusion, hemothorax, intracranial, neurologic,as well as others were deemed relatively unlikely. The pt informed about the findings as listed above. All questions were answered and pleased with the treatment. Case reviewed with my attending The chart was completed utilizing [employer] Speech voice recognition software. Grammatical errors, random word insertions, pronoun errors, and incomplete sentences are an occassional consequence of this system due to software limitations, ambient noise, and hardware issues. Any formal questions or concerns about the content, text, or information contained within the body of this dictation should be directly addressed to the physician clerical administrative assistant for clarification. Impression & Plan Acute urinary retention, Acute renal failure, Syncope Discharge Plan Visit Data Chief Complaint: Abdominal Pain Stated Complaint: syncope ED Provider: Ivan Smith ED Midlevel Provider: Teresa Chamorro Discharge Problem: Acute urinary retention, Acute renal failure, Syncope Patient Disposition: Admitted As Inpatient Condition: Fair Forms Stand Alone Forms: Call Back Authorization, [facility] Prescriptions Prescriptions: No Action No Known Home Medications RF: 0 Referrals Referrals: PCP,NO [Primary Care Provider] -
[2018-11-26 06:59] LABS: Estimated Average Glucose 120 mg/dl
--- NOTE | 2018-11-26 07:29 | XRay Report ---
XR chest 1V portable HISTORY: Severe epigastric pain. COMPARISON: None. FINDINGS: Right basilar linear densities likely representing subsegmental atelectasis. Otherwise, the lungs are clear. No pleural effusions. No pneumothorax. The heart is normal in size. Tortuous thorac ic aorta. IMPRESSION: Right basilar linear densities suggestive of subsegmental atelectasis. Otherwise, no acute process wi thin the chest. Electronically signed by: Jameson Bailon M.D. 11/26/2018 7:27 AM
--- NOTE | 2018-11-26 07:47 | CT Scan Report ---
ABDOMEN AND PELVIS CT WITH IV CONTRAST CT DOSE: HISTORY: Severe abdominal pain. TECHNIQUE: Multiaxial CT images of the abdomen and pelvis were performed following the use of intrave nous contrast. A dose lowering technique was utilized adhering to the principles of ALARA. COMPARISON STUDY: None. FINDINGS: Groundglass densities at the lung bases suggestive of mild dependent change. Small foci of pneumoperitoneum within the upper abdomen. Focal thickening and inflammatory change at the duodenal b ulb. There appears to be a small focal ulceration at the duodenal bulb with a small air-fluid level b est seen on image 150. Therefore, these findings likely represent a perforated duodenal ulcer. This l ikely results in the pneumoperitoneum. Small amount of upper abdominal ascites. The pancreas, spleen, and adrenal glands are unremarkable. Distended gallbladder. Hepatic and renal hypodense lesions. The se favor cysts. No retroperitoneal lymphadenopathy. Moderate to severe bilateral hydroureteronephrosi s to the level of the ureterovesical junctions. The bladder is also severely distended. Linear septat ion along the posterior aspect of the mid bladder. Therefore, the upper half of the bladder likely re presents a large diverticulum. The prostate gland is normal in size. No evidence for bowel obstructio n. Colonic diverticulosis. No evidence for diverticulitis. IMPRESSION: 1. Inflammatory change and a small air-fluid level surrounding the thickened duodenal bulb. There is also a small amount of pneumoperitoneum. And a small amount of upper abdominal ascites. Therefore, th pamela findings are highly suspicious for a perforated duodenal ulcer. 2. Moderate to severe bilateral hydroureteronephrosis with a severely distended bladder. This suggest s a bladder outlet obstruction. 3.Distended gallbladder. 4. Additional findings as described above. 5. These findings were discussed with Dr. Odonnell at 7:40 AM on 11/26/2018. Electronically signed by: Jameson Bailon M.D. 11/26/2018 7:45 AM
--- NOTE | 2018-11-26 08:06 | CT Scan Report ---
CHEST CT WITH CONTRAST CT DOSE: 878.62 mGy.cm HISTORY: Acute severe epigastric abdominal pain severe epi pain TECHNIQUE: Multiaxial CT images of the chest were performed following the intravenous administration of contrast. A dose lowering technique was utilized adhering to the principles of ALARA. COMPARISON: CT abdomen and pelvis of same day. FINDINGS: Homogeneous thyroid. Trace pericardial effusion. The heart is normal in size. Coronary arterial calci fications are noted. There is no thoracic aortic aneurysm identified. Tortuosity of the descending th oracic aorta. Partially opacified pulmonary arterial tree is unremarkable. No adenopathy. No pneumothorax or pleural effusion. Emphysema. Mild dependent subsegmental bibasilar atelectasis. Mi ld cystic/varicose bronchiectasis of the upper lobes. Dependent bibasilar groundglass opacities sugge st atelectasis. There is no overt pulmonary edema. 2 mm solid nodule of the right lung apex on image 50 series 6. 3 mm solid nodule right upper lobe on image 1:15 series 6. A few additional scattered so lid nodules are seen measuring up to 3 mm. Central airways appear patent. No focal airspace consolida tion typical for pneumonia. Scattered foci of pneumoperitoneum of the upper abdomen. Trace upper abdominal ascites. 9 mm hypodens e lesion of the hepatic dome. Mild gallbladder distention. 2.2 cm cyst of the superior pole right kid bhupendra. Degenerative changes of the shoulders and spine. IMPRESSION: 1. Scattered foci of pneumoperitoneum compatible with perforated viscus. Please refer to CT abdomen a nd pelvis study of same day for further details. 2. Paraseptal emphysema with mild upper lobe cystic/varicose bronchiectasis. 3. There are a few scattered solid pulmonary nodules noted measuring up to 3 mm which are likely sheila gn. 4. Dependent bibasilar groundglass densities suggest atelectasis. Please refer to below summary of Fleischner criteria recommendations for follow-up of incidental CT n odules (Haris Bautista, Guidelines for management of small pulmonary nodules detected on CT scans: A sta tement from the Fleischner Society, Radiology 237: [phone].) SOLID NODULES Multiple nodules size: <6 mm * Low risk patients: no routine follow-up * high risk patients: optional CT at 12 months Note: newly detected indeterminate nodule in persons 35 years of age or older. * Low risk patients: minimal or absent history of smoking and/or other known risk factors * high risk patients: history of smoking or of other known risk factors (e.g. first degree relative with lung cancer, or exposure to asbestos, radon, uranium) * if a nodule up to 8 mm is partly solid or is ground glass further follow-up is required after 24 m onths to exclude possible slow growing adenocarcinoma (YEIMI) The above report was generated using voice recognition software. It may contain grammatical, syntax o r spelling errors. Electronically signed by: Andres Bardales M.D. 11/26/2018 8:05 AM
--- NOTE | 2018-11-26 08:09 | Ultrasound Report ---
US gallbladder CLINICAL HISTORY: Abdominal pain. COMPARISON STUDY: CT of the abdomen and pelvis November 26, 2018. FINDINGS: Exam is compromised by suboptimal penetration. A small amount of perihepatic ascites is not ed. There is no biliary ductal dilatation. The gallbladder is moderately distended. Sonographic Yahir y sign could not be assessed for in this patient. There is sludge within the gallbladder. No shadowin g stones are identified. The gallbladder wall thickness is normal. There are suspected tiny gallbladd er polyps. The pancreas is obscured. There is moderate to severe right hydronephrosis. A complex 2.9 cm right renal cyst is noted. This contains echogenic foci without color flow. IMPRESSION: 1. Moderate gallbladder distention. Sludge within the gallbladder. No shadowing gallstones. 2. Small amount of perihepatic ascites. 3. 2.9 cm complex right renal cystic lesion. This is likely benign however a follow-up nonemergent re nal protocol MRI is recommended once acute symptoms resolve. 4. Moderate to severe right hydronephrosis. Electronically signed by: Richard Ghosh M.D. 11/26/2018 8:07 AM
--- NOTE | 2018-11-26 08:20 | Hospitalist Progress Note ---
Date of Service November 26, 2018 Assessment & Plan (1) Duodenal perforation: Presented with severe epigastric abdominal pain, CT abdomen pelvis shows inflammation around and a small air-fluid level surrounding the thickened duodenal bulb, with small amount of pneumoperitoneum, small amount of upper abdominal ascites, suggestive of perforated duodenal ulcer History of NSAID use Ordered for n.p.o., IV Protonix drip, IV fluids Repeat labs, CBC with differential, lactic acid, procalcitonin level, CMP now Ordered for stat surgery consult, Discussed with on-call surgery PA, patient will need emergent surgical evaluation and possible to OR for perforated duodenal ulcer as soon as possible (2) NSAID long-term use: Patient has been taking ibuprofen sometimes 4 times daily, has been taking for intermittent abdominal pain which has been ongoing for last several months, does not recall whether he takes with with meal or not Also been taking Motrin as needed as well Denies prior history of GERD, no EGD recently Does not take any PPI or [id number] H2 mally Presents with acute renal failure perforated duodenal ulcer Order for IV Protonix drip will need emergent exploratory laparotomy for perforated duodenal ulcer-surgery team updated Patient is counseled repeatedly to avoid NSAIDs Will need outpatient GI follow-up (3) Hydronephrosis: CT abdomen pelvis shows severe bilateral hydronephrosis with suggestive of bladder outlet obstruction Has Bynum catheter placed We will consult urology (4) Acute urinary retention: Secondary to acute bladder outlet obstruction Appears to be chronic Patient unable to recall history of urinary retention retention Continue Bynum catheter for urinary drainage Urology consult (5) Acute renal failure: Acute renal failure with elevated creatinine more than 2 multifactorial In the setting of dehydration/poor p.o. intake for severe abdominal pain for past few days, duodenal perforation, chronic NSAID use, bladder outlet obstruction Bynum placed for urinary drainage IV fluids increased to 150 mL/h Follow BMP closely Patient got IV contrast for CT abdomen pelvis, Will consider nephrology consult, if creatinine does not improve with aggressive IV resuscitation, (6) Hypertensive urgency: Possible secondary to severe abdominal pain, discomfort Hold p.o. Norvasc for acute abdomen,duodenal perforation Pain control, correction of dehydration with IV fluids Consider IV antihypertensive if blood pressure remains persistently elevated in spite of adequate pain control CODE STATUS: Full code DVT prophylaxis SCD and teds Avoid pharmacological anticoagulation in the setting of acute abdomen needs surgery Disposition: Expected to be discharged home when medically stable Patient follows with [facility] [place] Subjective Patient continues to have severe epigastric pain and discomfort, Pain is worse with minimal movement, taking deep breath No nausea vomiting, no dark stool reported CT abdomen pelvis shows duodenal perforation, surgery team updated will be kept strict n.p.o. including meds and sips of water Increase IV fluids to 150 mL/h to prevent dehydration Empiric antibiotic with IV Zosyn Patient will be taken to surgery as soon as possible, discussed case with on- call surgery PA Maribel Mendez Physical Exam Constitutional: + acute distress In discomfort secondary to abdominal pain Neck: normal visual inspection Dry oral mucosa supple no Respiratory: normal respiratory effort, lungs clear to auscultation Cardiovascular: RRR, no murmur, no edema Gastrointestinal (Abdomen): Percussion/Palpation: + abdomen tender (Epigastric tenderness) and + guarding Severe mid epigastric abdominal tenderness, silent abdomen, diminished/absent bowel sounds Musculoskeletal: no cyanosis or clubbing, extremities motor strength 5/5 Skin: no rashes, warm and dry Neurologic: PERRL, EOMI, accommodation nl, no face palsy, no dysarthria Psychiatric: A+Ox3, euthymic affect Results & Data Vital Signs (Past 12 Hours) Vital Signs CT abdomen pelvis with IV contrast: 11/26/2018 at midnight IMPRESSION: 1. Inflammatory change and a small air-fluid level surrounding the thickened duodenal bulb. There is also a small amount of pneumoperitoneum. And a small amount of upper abdominal ascites. Therefore, these findings are highly suspicious for a perforated duodenal ulcer. 2. Moderate to severe bilateral hydroureteronephrosis with a severely distended bladder. This suggests a bladder outlet obstruction. 3.Distended gallbladder Temp Pulse Pulse Resp BP BP BP 11/26/18 07:16 37.1 C 102 H 18 170/104 H 11/26/18 05:03 36.5 C 97 H 20 142/87 H 11/26/18 04:43 36.7 C 100 H 16 149/92 H 11/26/18 02:50 96 H 22 151/96 H 11/26/18 02:00 102 H 18 157/72 H 11/26/18 01:31 104 H 20 190/109 H 11/26/18 01:29 22 11/26/18 01:16 104 H 142/113 H 11/26/18 01:15 104 H 0712/19 01:12 109 H 149/109 H 11/26/18 01:01 97 H 29 H 169/96 H 11/26/18 00:59 101 H 23 152/100 H 11/26/18 00:50 102 H 22 152/100 H 11/26/18 00:45 103 H 24 11/26/18 00:40 96 H 25 H 11/26/18 00:38 143/110 H 11/26/18 00:07 11/25/18 23:55 83 20 145/88 H 11/25/18 23:51 90 28 H 145/88 H Pulse Ox 11/26/18 07:16 94 11/26/18 05:03 94 11/26/18 04:43 93 11/26/18 02:50 98 11/26/18 02:00 94 11/26/18 01:31 94 11/26/18 01:29 96 11/26/18 01:16 98 11/26/18 01:15 97 11/26/18 01:12 89 L 11/26/18 01:01 11/26/18 00:59 11/26/18 00:50 92 11/26/18 00:45 11/26/18 00:40 11/26/18 00:38 11/26/18 00:07 97 11/25/18 23:55 94 11/25/18 23:51 97
[2018-11-26] MEDS: PIPERACILLIN/TAZOBACTAM 3.375 GM/115 ML BAG IV SCH ×3 (08:43→23:32)
[2018-11-26] MEDS: HYDROmorphone INJ 1 MG/ML SYRINGE IV PRN (08:52)
[2018-11-26 08:57] LABS: Hematocrit (blood only) 46.5 % (42-52); Hemoglobin 15.5 g/dL (14.0-18.0); Lymphocytes # (auto) 0.39 K/uL (1.2-3.4); Mean Corpuscular Volume 101.3 fL (80-100); Mean Platelet Volume 11.6 fL (7.4-10.4); Monocytes # (auto) 0.24 K/uL (0.11-0.59); Monocytes % (auto) 3.7 %; Neutrophils # (auto) 5.86 K/uL (1.4-6.5); Neutrophils % (auto) 90.3 %; Platelet Count 221 K/uL (130-400); RDW Standard Deviation 51.7 fL (36.4-46.3); Red Blood Count 4.59 M/uL (4.7-6.1); White Blood Count 6.49 K/uL (4.8-10.8)
[2018-11-26] MEDS ORDERED: PANTOprazole 80 MG in DEXTROSE 5% 100 ML IV ONE (09:00)
[2018-11-26 09:03] LABS: Mean Corpuscular Hgb Conc 33.3 g/dL (32-36)
--- NOTE | 2018-11-26 09:03 | Urology Consultation ---
Date of Consultation November 26, 2018 Assessment & Plan (1) Hydronephrosis: (2) Acute urinary retention: 63yo M with acute urinary retention, post renal failure; concern for acute abdomen Pt lethargic, ill appearing. guarding on exam. CT findings concerning for perforated duodenal ulcer; bilateral hydronephosis and distended bladder. Maribel Rodriguez PA-C at bedside to evaluate patient directly following. Pt to remain NPO for likely emergent general surgery intervention. Creatinine improving. Maintain lovett catheter to allow maximal drainage, likely will maintain for 10- 14days. Add tamsulosin to regimen when clinically stable. Pt deferred RIANA for now, reasonable in setting of acute illness. We will continue to monitor while inpatient. Will benefit from outpatient cystoscopy in near future. History of Present Illness Attending Physician: Leidy Lopez MD History of Present Illness 63yo M with worsening epigastric pain x3 days, nausea/vomiting, and syncope. Concern for perforated duodenal ulcer - pt very ill appearing, lethargic on exam with guarding. Pt experiencing epigastric pain described as a band of pain substernally with all oral intake. No hematemesis. Pt was also found to be in acute urinary retention, bilateral hydro, post renal failure. Lovett catheter placed in ED, drained 2Liters. UA with blood only, not suspicious for UTI. On suboxone for chronic pain per records. last PCP visit May 2017, with PSA and RIANA. Per patient everything was okay. Experiencing worsening LUTS over the past 1-2 years. Frequency, post void dribbling. Roxanna dysuria or hematuria. Nocturia every 2 hours at baseline. Never previously evaluated by Urologist, no BPH meds. Father with "prostate issues", of heart disease. Uncle with prostate cancer, unsure of treatment. Mother of lung cancer. Sister of colon cancer Allergies Allergy/AdvReac Type Severity Reaction Status Date / Time No Known Allergies Allergy Unverified 11/26/18 00:21 Home Medications Home Medications Medication Instructions Recorded Confirmed Type No Known Home Medications 11/26/18 11/26/18 History Patient History Medical History No acute medical problems Social History Preferred Language: Croatian Communication Ability: Effective Fine Patcher Required: No Beliefs That Will Affect Care: None Current Living Situation: Spouse Current Living Situation Comment: WITH Other Information That Helps Us Care for You: No Feels Safe at Home: Yes Safety Concerns: Feels Safe At This Time Smoking Status: Current every day smoker Tobacco Type: cigarettes Cigarettes Per Day: 20 PER DAY/1 PACK A DAY Do You Dip or Chew Tobacco: No Second Hand Exposure: No Tobacco Cessation Education Requested by Patient: No Hx Alcohol Use: No Hx Substance Use: No Review of Systems Review of Systems: All systems reviewed & are unremarkable except as noted in HPI & below Physical Exam Physical Exam: lethargic, oriented x3 RRR Abd guarded, tender upon palpation lovett draining clear yellow no LE edema Results & Data Vital Signs (Past 12 Hours) Vital Signs Temp Pulse Pulse Resp BP BP BP 11/26/18 07:16 37.1 C 102 H 18 170/104 H 11/26/18 05:03 36.5 C 97 H 20 142/87 H 11/26/18 04:43 36.7 C 100 H 16 149/92 H 11/26/18 02:50 96 H 22 151/96 H 11/26/18 02:00 102 H 18 157/72 H 11/26/18 01:31 104 H 20 190/109 H 11/26/18 01:29 22 11/26/18 01:16 104 H 142/113 H 11/26/18 01:15 104 H 11/26/18 01:12 109 H 149/109 H 11/26/18 01:01 97 H 29 H 169/96 H 11/26/18 00:59 101 H 23 152/100 H 11/26/18 00:50 102 H 22 152/100 H 11/26/18 00:45 103 H 24 11/26/18 00:40 96 H 25 H 11/26/18 00:38 143/110 H 11/26/18 00:07 11/25/18 23:55 83 20 145/88 H 11/25/18 23:51 90 28 H 145/88 H Pulse Ox 11/26/18 07:16 94 11/26/18 05:03 94 11/26/18 04:43 93 11/26/18 02:50 98 11/26/18 02:00 94 11/26/18 01:31 94 07/12/19 01:29 96 11/26/18 01:16 98 11/26/18 01:15 97 11/26/18 01:12 89 L 11/26/18 01:01 11/26/18 00:59 11/26/18 00:50 92 11/26/18 00:45 11/26/18 00:40 11/26/18 00:38 11/26/18 00:07 97 11/25/18 23:55 94 11/25/18 23:51 97
[2018-11-26] MEDS ORDERED: fentaNYL citrate 100 MCG/2 ML VIAL ONE (09:07)
[2018-11-26] MEDS ORDERED: SUCCINYLCHOLINE CHLORIDE 20 MG/ML 10 ML VIAL ONE (09:07)
[2018-11-26] MEDS ORDERED: PROPOFOL IV EMULSION 10 MG/ML 20 ML VIAL IV ONE (09:07)
[2018-11-26] MEDS ORDERED: ROCURONIUM BROMIDE 10 MG/ML 5 ML VIAL ONE (09:07)
[2018-11-26] MEDS ORDERED: LIDOCAINE HCL 2% 2 ML VIAL/AMP(20MG/ML) INFIL ONE (09:07)
[2018-11-26] MEDS ORDERED: MIDAZOLAM HCL 1 MG/ML 2ML VIAL ONE (09:07)
[2018-11-26] MEDS ORDERED: ONDANSETRON INJ 2 MG/ML 2 ML VIAL ONE (09:07)
--- NOTE | 2018-11-26 09:11 | Surgery Consultation ---
Date of Consultation November 26, 2018 Assessment & Plan (1) Duodenal perforation: 63 year-old male with history of intermittent upper abdominal pain for 7 months presented to emergency department last evening with severe upper abdominal pain with nausea and vomiting. Original CT read showed severe bladder distention with bilateral hydroneprosis and upper abdominal ascites with distended gallbaldder. Offical read of CT scan showing pneumoperitoneum with duodenal wall thickening concerning for duodenal ulcer perforation. H&H stable. Vitals showing tachycardia in low 100s and hypertensive 170/104. Abdomen is soft but there is peritonitis, guarding, and tenderness in the upper abdomen. Repeat labs this am shows lactic acid of 2.2. WBC wnl. Plan: Plan to take patient to operating room for exploratory laparotomy repair of ulcer , possible bowel resection, possible ostomy. Patient informed of procedure and risks and informed consent will be obtained by Dr. Tracey Keep NPO NSS 1 liter bolus Start PPI drip Continue pain management as needed Discussed patient with Dr. Tracey who will see patient preoperative and agrees with above. (2) Pneumoperitoneum: History of Present Illness Reason for Consultation: Pneumoperitoneum Duodenal ulcer perforation Requesting Physician: Leidy Tate Attending Physician: Leidy Lopez MD History of Present Illness Taran is a pleasant 63 year-old male who presented to emergency department last evening with increasing abdominal pain, nausea, and vomiting. Taran states he has had intermittent abdominal pain that would start in LUQ and radiate to the RUQ for the past 7 months. Pain would last for a few days and then resolve. States he would take Ibuprofen or Motrin for the pain but not on a daily basis. No significant heartburn. Has never been treated for GERD in the past. Prior history of alcohol use (binge drinking) but quit 20+ years ago. Smokes 1 pack per day for the past 30+ years. Taran states the abdominal pain would progressively increase but in last few days pain increased especially last night. Never had that severe pain before. Pain rated over 10/[address] He had [address] scan of abdomen and pelvis last evening in the emergency room which showed distended bladder with bilateral hydronephrosis. Bynum catheter was placed and he had 2 liters of urine output. He also had distended gallbladder and ascites of the upper abdomen. Official CT scan read by our radiologists this morning was concerned for pneumoperitoneum and duodenal wall thickening concerning for duodenal ulcer perforation. I evaluated patient this morning after receiving phone calls from Dr. Tate and Dr. Lopez. Heart rate low 100's. Blood pressure 170/104. States his pain is currently 9/10. States he feels his abdomen is rigid. Unable to relax his abdominal muscles or get comfortable. Hard to take a deep breath without pain. No prior abdominal surgical history Allergies Allergy/AdvReac Type Severity Reaction Status Date / Time No Known Allergies Allergy Unverified 11/26/18 00:21 Home Medications Home Medications Medication Instructions Recorded Confirmed Type No Known Home Medications 11/26/18 11/26/18 History Patient History Medical History No acute medical problems Social History Preferred Language: Emir[place] Communication Ability: Effective Gunite Mixer Required: No Beliefs That Will Affect Care: None Current Living Situation: Spouse Current Living Situation Comment: WITH Other Information That Helps Us Care for You: No Feels Safe at Home: Yes Safety Concerns: Feels Safe At This Time Smoking Status: Current every day smoker Tobacco Type: cigarettes Cigarettes Per Day: 20 PER DAY/1 PACK A DAY Do You Dip or Chew Tobacco: No Second Hand Exposure: No Tobacco Cessation Education Requested by Patient: No Hx Alcohol Use: No Hx Substance Use: No Review of Systems Review of Systems: All systems reviewed & are unremarkable except as noted in HPI & below Physical Exam Constitutional: + acute distress (mild, unable to get comfortable) Respiratory: normal respiratory effort, lungs clear to auscultation normal respiratory effort; no respiratory distress Cardiovascular: Rate/Rhythm: regular rhythm and + tachycardic Heart Sounds: normal S1 and normal S2 Gastrointestinal (Abdomen): Inspection/Auscultation: abdomen normal to inspection; abdomen not distended and + abnormal bowel sounds Percussion/Palpation: + abdomen tender, + guarding and abdomen soft + peritonitis in upper abdomen Skin: no rashes, warm and dry no jaundice Psychiatric: Orientation: alert and oriented x 3 Results & Data Vital Signs (Past 12 Hours) Vital Signs Temp Pulse Pulse Resp BP BP BP 11/26/18 07:16 37.1 C 102 H 18 170/104 H 11/26/18 05:03 36.5 C 97 H 20 142/87 H 11/26/18 04:43 36.7 C 100 H 16 149/92 H 11/26/18 02:50 96 H 22 151/96 H 11/26/18 02:00 102 H 18 157/72 H 11/26/18 01:31 104 H 20 190/109 H 11/26/18 01:29 22 11/26/18 01:16 104 H 142/113 H 11/26/18 01:15 104 H 11/26/18 01:12 109 H 149/109 H 11/26/18 01:01 97 H 29 H 169/96 H 11/26/18 00:59 101 H 23 152/100 H 11/26/18 00:50 102 H 22 152/100 H 11/26/18 00:45 103 H 24 11/26/18 00:40 96 H 25 H 11/26/18 00:38 143/110 H 11/26/18 00:07 11/25/18 23:55 83 20 145/88 H 11/25/18 23:51 90 28 H 145/88 H Pulse Ox 11/26/18 07:16 94 11/26/18 05:03 94 11/26/18 04:43 93 11/26/18 02:50 98 11/26/18 02:00 94 11/26/18 01:31 94 11/26/18 01:29 96 11/26/18 01:16 98 11/26/18 01:15 97 11/26/18 01:12 89 L 11/26/18 01:01 11/26/18 00:59 11/26/18 00:50 92 11/26/18 00:45 11/26/18 00:40 11/26/18 00:38 11/26/18 00:07 97 11/25/18 23:55 94 11/25/18 23:51 97 Laboratory Results 11/26/18 11/26/18 11/26/18 Range/Units 08:38 08:26 08:26 WBC (4.8-10.8) K/uL RBC (4.7-6.1) M/uL Hgb (14.0-18.0) g/dL POC Hgb (14.0-18.0) g/dl Hct (42-52) % POC Hct (42-52) % MCV (80-100) fL MCH (25-34) pg MCHC (32-36) g/dL RDW Std Deviation (36.4-46.3) fL RDW Coeff of Carla (11.5-14.5) % Plt Count (130-400) K/uL MPV (7.4-10.4) fL Immature Gran % (Auto) % Neut % (Auto) % Lymph % (Auto) % [place] % (Auto) % Eos % (Auto) % Baso % (Auto) % Immature Gran # (Auto) (0.00-0.02) K/uL Neut # (Auto) (1.4-6.5) K/uL Lymph # (Auto) (1.2-3.4) K/uL [place] # (Auto) (0.11-0.59) K/uL Eos # (Auto) (0-0.5) K/uL Baso # (Auto) (0-0.2) K/uL APTT (21.0-31.0) Seconds PTT Ratio ABG pH (7.35-7.45) ABG pCO2 (35-46) mmHg ABG pO2 (80-95) mm/Hg ABG HCO3 (19-24) mmol/L ABG O2 Saturation (90-95) % ABG Base Excess (-9-1.8) mEq/L Jay Test (Pos) Oxygen Given POC Sodium (135-144) mEq/L Sodium 141 (136-145) mmol/L POC Potassium (3.3-5.0) mEq/L Potassium 4.3 D (3.5-5.1) mmol/L POC Chloride (101-112) mEq/L Chloride 109 H (98-107) mmol/L Carbon Dioxide 26 (21-32) mmol/L POC Total CO2 (24-31) mEq/l Anion Gap 6.0 (3-11) POC Anion Gap (16-25) mmol/L POC BUN (7-18) mg/dl BUN 23 H (7-18) mg/dl Creatinine 2.04 H (0.6-1.4) mg/dl POC Creatinine (0.6-1.3) mg/dl Est Cr Clr Drug Dosing 42.4 ml/min Est GFR ( Amer) 39.3 Est GFR (Non-Af Amer) 33.9 BUN/Creatinine Ratio 11.3 (10-20) Glucose 127 H (70-99) mg/dl POC Glucose (other) (70-99) mg/dl Estimat Average Glucose mg/dl Hemoglobin A1c (4.5-5.6) % Lactate 2.2 H* (0.4-2.0) mmol/L Calcium 8.7 (8.5-10.1) mg/dl POC Ioniz Calcium Damon (1.12-1.32) mmol/l Magnesium (1.8-2.4) mg/dl Total Bilirubin 0.5 (0.2-1) mg/dl Direct Bilirubin 0.1 (0-0.2) mg/dl AST 16 (15-37) U/L ALT 19 (12-78) U/L Alkaline Phosphatase 56 (45-117) U/L Total Creatine Kinase (39-308) U/L Troponin I (0-0.045) ng/ml Total Protein 6.9 (6.4-8.2) gm/dl Albumin 3.5 (3.4-5.0) gm/dl Globulin 3.4 (2.5-4.0) gm/dl Albumin/Globulin Ratio 1.0 (0.9-2) Lipase (73-393) U/L Procalcitonin Pending (0-0.5) ng/ml TSH (0.300-4.500) uIu/ml Urine Color Urine Appearance (Clear) Urine pH (4.5-7.5) Ur Specific [place] (1.000-1.030) Urine Protein (Negative) Urine Glucose (UA) (Negative) Urine Ketones (Negative) Urine Blood (Negative) Urine Nitrite (Negative) Urine Bilirubin (Negative) Urine Urobilinogen (Negative) Ur Leukocyte Esterase (Negative) Urine WBC (Auto) (0-5) /hpf Urine RBC (Auto) (0-4) /hpf U Hyaline Cast (Auto) (0-5) /lpf U Epithel Cells (Auto) (0-5) /lpf Urine Bacteria (Auto) (Negative) Urine Opiates Screen (Neg) Ur Methadone, Qual (Neg) Urine Barbiturates (Neg) Ur Phencyclidine (PCP) (Neg) U Amphetamin/Meth Scrn (Neg) MDMA (Ecstasy) Screen (Neg) U Benzodiazepines Scrn (Neg) Ur Cocaine Metabolite (Neg) U Marijuana (THC) Screen (Neg) Ethyl Alcohol mg/dL (0-3) mg/dl Blood Type Antibody Screen Crossmatch 11/26/18 11/26/18 11/26/18 Range/Units 08:26 02:17 02:17 WBC 6.49 (4.8-10.8) K/uL RBC 4.59 L (4.7-6.1) M/uL Hgb 15.5 (14.0-18.0) g/dL POC Hgb (14.0-18.0) g/dl Hct 46.5 (42-52) % POC Hct (42-52) % MCV 101.3 H (80-100) fL MCH 33.8 (25-34) pg MCHC 33.3 (32-36) g/dL RDW Std Deviation 51.7 H (36.4-46.3) fL RDW Coeff of Carla 14.0 (11.5-14.5) % Plt Count 221 (130-400) K/uL MPV 11.6 H (7.4-10.4) fL Immature Gran % (Auto) 0.0 % Neut % (Auto) 90.3 % Lymph % (Auto) 6.0 % [place] % (Auto) 3.7 % Eos % (Auto) 0.0 % Baso % (Auto) 0.0 % Immature Gran # (Auto) 0.00 (0.00-0.02) K/uL Neut # (Auto) 5.86 (1.4-6.5) K/uL Lymph # (Auto) 0.39 L (1.2-3.4) K/uL [place] # (Auto) 0.24 (0.11-0.59) K/uL Eos # (Auto) 0.00 (0-0.5) K/uL Baso # (Auto) 0.00 (0-0.2) K/uL APTT (21.0-31.0) Seconds PTT Ratio ABG pH 7.30 L (7.35-7.45) ABG pCO2 47 H (35-46) mmHg ABG pO2 87 (80-95) mm/Hg ABG HCO3 22 (19-24) mmol/L ABG O2 Saturation 96.0 H (90-95) % ABG Base Excess -4.2 (-9-1.8) mEq/L Jay Test Pos (Pos) Oxygen Given 3L POC Sodium (135-144) mEq/L Sodium (136-145) mmol/L POC Potassium (3.3-5.0) mEq/L Potassium (3.5-5.1) mmol/L POC Chloride (101-112) mEq/L Chloride (98-107) mmol/L Carbon Dioxide (21-32) mmol/L POC Total CO2 (24-31) mEq/l Anion Gap (3-11) POC Anion Gap (16-25) mmol/L POC BUN (7-18) mg/dl BUN (7-18) mg/dl Creatinine (0.6-1.4) mg/dl POC Creatinine (0.6-1.3) mg/dl Est Cr Clr Drug Dosing ml/min Est GFR ( Amer) Est GFR (Non-Af Amer) BUN/Creatinine Ratio (10-20) Glucose (70-99) mg/dl POC Glucose (other) (70-99) mg/dl Estimat Average Glucose mg/dl Hemoglobin A1c (4.5-5.6) % Lactate 1.9 (0.4-2.0) mmol/L Calcium (8.5-10.1) mg/dl POC Ioniz Calcium Damon (1.12-1.32) mmol/l Magnesium (1.8-2.4) mg/dl Total Bilirubin (0.2-1) mg/dl Direct Bilirubin (0-0.2) mg/dl AST (15-37) U/L ALT (12-78) U/L Alkaline Phosphatase (45-117) U/L Total Creatine Kinase (39-308) U/L Troponin I (0-0.045) ng/ml Total Protein (6.4-8.2) gm/dl Albumin (3.4-5.0) gm/dl Globulin (2.5-4.0) gm/dl Albumin/Globulin Ratio (0.9-2) Lipase (73-393) U/L Procalcitonin (0-0.5) ng/ml TSH (0.300-4.500) uIu/ml Urine Color Urine Appearance (Clear) Urine pH (4.5-7.5) Ur Specific [place] (1.000-1.030) Urine Protein (Negative) Urine Glucose (UA) (Negative) Urine Ketones (Negative) Urine Blood (Negative) Urine Nitrite (Negative) Urine Bilirubin (Negative) Urine Urobilinogen (Negative) Ur Leukocyte Esterase (Negative) Urine WBC (Auto) (0-5) /hpf Urine RBC (Auto) (0-4) /hpf U Hyaline Cast (Auto) (0-5) /lpf U Epithel Cells (Auto) (0-5) /lpf Urine Bacteria (Auto) (Negative) Urine Opiates Screen (Neg) Ur Methadone, Qual (Neg) Urine Barbiturates (Neg) Ur Phencyclidine (PCP) (Neg) U Amphetamin/Meth Scrn (Neg) MDMA (Ecstasy) Screen (Neg) U Benzodiazepines Scrn (Neg) Ur Cocaine Metabolite (Neg) U Marijuana (THC) Screen (Neg) Ethyl Alcohol mg/dL (0-3) mg/dl Blood Type Antibody Screen Crossmatch 11/26/18 11/26/18 11/26/18 Range/Units 02:08 02:08 01:18 WBC (4.8-10.8) K/uL RBC (4.7-6.1) M/uL Hgb (14.0-18.0) g/dL POC Hgb (14.0-18.0) g/dl Hct (42-52) % POC Hct (42-52) % MCV (80-100) fL MCH (25-34) pg MCHC (32-36) g/dL RDW Std Deviation (36.4-46.3) fL RDW Coeff of Carla (11.5-14.5) % Plt Count (130-400) K/uL MPV (7.4-10.4) fL Immature Gran % (Auto) % Neut % (Auto) % Lymph % (Auto) % [place] % (Auto) % Eos % (Auto) % Baso % (Auto) % Immature Gran # (Auto) (0.00-0.02) K/uL Neut # (Auto) (1.4-6.5) K/uL Lymph # (Auto) (1.2-3.4) K/uL [place] # (Auto) (0.11-0.59) K/uL Eos # (Auto) (0-0.5) K/uL Baso # (Auto) (0-0.2) K/uL APTT (21.0-31.0) Seconds PTT Ratio ABG pH (7.35-7.45) ABG pCO2 (35-46) mmHg ABG pO2 (80-95) mm/Hg ABG HCO3 (19-24) mmol/L ABG O2 Saturation (90-95) % ABG Base Excess (-9-1.8) mEq/L Jay Test (Pos) Oxygen Given POC Sodium (135-144) mEq/L Sodium 142 (136-145) mmol/L POC Potassium (3.3-5.0) mEq/L Potassium 3.7 (3.5-5.1) mmol/L POC Chloride (101-112) mEq/L Chloride 111 H (98-107) mmol/L Carbon Dioxide 25 (21-32) mmol/L POC Total CO2 (24-31) mEq/l Anion Gap 6.0 (3-11) POC Anion Gap (16-25) mmol/L POC BUN (7-18) mg/dl BUN 22 H (7-18) mg/dl Creatinine 1.81 H (0.6-1.4) mg/dl POC Creatinine (0.6-1.3) mg/dl Est Cr Clr Drug Dosing 47.8 ml/min Est GFR ( Amer) 45.4 Est GFR (Non-Af Amer) 39.2 BUN/Creatinine Ratio 12.0 (10-20) Glucose 185 H (70-99) mg/dl POC Glucose (other) (70-99) mg/dl Estimat Average Glucose mg/dl Hemoglobin A1c (4.5-5.6) % Lactate (0.4-2.0) mmol/L Calcium 8.2 L (8.5-10.1) mg/dl POC Ioniz Calcium Damon (1.12-1.32) mmol/l Magnesium (1.8-2.4) mg/dl Total Bilirubin (0.2-1) mg/dl Direct Bilirubin (0-0.2) mg/dl AST (15-37) U/L ALT (12-78) U/L Alkaline Phosphatase (45-117) U/L Total Creatine Kinase (39-308) U/L Troponin I (0-0.045) ng/ml Total Protein (6.4-8.2) gm/dl Albumin (3.4-5.0) gm/dl Globulin (2.5-4.0) gm/dl Albumin/Globulin Ratio (0.9-2) Lipase (73-393) U/L Procalcitonin (0-0.5) ng/ml TSH (0.300-4.500) uIu/ml Urine Color Urine Appearance (Clear) Urine pH (4.5-7.5) Ur Specific [place] (1.000-1.030) Urine Protein (Negative) Urine Glucose (UA) (Negative) Urine Ketones (Negative) Urine Blood (Negative) Urine Nitrite (Negative) Urine Bilirubin (Negative) Urine Urobilinogen (Negative) Ur Leukocyte Esterase (Negative) Urine WBC (Auto) (0-5) /hpf Urine RBC (Auto) (0-4) /hpf U Hyaline Cast (Auto) (0-5) /lpf U Epithel Cells (Auto) (0-5) /lpf Urine Bacteria (Auto) (Negative) Urine Opiates Screen Neg (Neg) Ur Methadone, Qual Neg (Neg) Urine Barbiturates Neg (Neg) Ur Phencyclidine (PCP) Neg (Neg) U Amphetamin/Meth Scrn Neg (Neg) MDMA (Ecstasy) Screen Neg (Neg) U Benzodiazepines Scrn Neg (Neg) Ur Cocaine Metabolite Neg (Neg) U Marijuana (THC) Screen Neg (Neg) Ethyl Alcohol mg/dL < 3.0 (0-3) mg/dl Blood Type Antibody Screen Crossmatch 11/26/18 11/26/18 11/26/18 Range/Units 01:18 00:38 00:06 WBC (4.8-10.8) K/uL RBC (4.7-6.1) M/uL Hgb (14.0-18.0) g/dL POC Hgb 15.6 (14.0-18.0) g/dl Hct (42-52) % POC Hct 46 (42-52) % MCV (80-100) fL MCH (25-34) pg MCHC (32-36) g/dL RDW Std Deviation (36.4-46.3) fL RDW Coeff of Carla (11.5-14.5) % Plt Count (130-400) K/uL MPV (7.4-10.4) fL Immature Gran % (Auto) % Neut % (Auto) % Lymph % (Auto) % [place] % (Auto) % Eos % (Auto) % Baso % (Auto) % Immature Gran # (Auto) (0.00-0.02) K/uL Neut # (Auto) (1.4-6.5) K/uL Lymph # (Auto) (1.2-3.4) K/uL [place] # (Auto) (0.11-0.59) K/uL Eos # (Auto) (0-0.5) K/uL Baso # (Auto) (0-0.2) K/uL APTT (21.0-31.0) Seconds PTT Ratio ABG pH (7.35-7.45) ABG pCO2 (35-46) mmHg ABG pO2 (80-95) mm/Hg ABG HCO3 (19-24) mmol/L ABG O2 Saturation (90-95) % ABG Base Excess (-9-1.8) mEq/L Jay Test (Pos) Oxygen Given POC Sodium 142 (135-144) mEq/L Sodium (136-145) mmol/L POC Potassium 3.5 (3.3-5.0) mEq/L Potassium (3.5-5.1) mmol/L POC Chloride 105 (101-112) mEq/L Chloride (98-107) mmol/L Carbon Dioxide (21-32) mmol/L POC Total CO2 25 (24-31) mEq/l Anion Gap (3-11) POC Anion Gap 16.0 (16-25) mmol/L POC BUN 25 H (7-18) mg/dl BUN (7-18) mg/dl Creatinine (0.6-1.4) mg/dl POC Creatinine 2.2 H (0.6-1.3) mg/dl Est Cr Clr Drug Dosing ml/min Est GFR ( Amer) Est GFR (Non-Af Amer) BUN/Creatinine Ratio (10-20) Glucose (70-99) mg/dl POC Glucose (other) 171 H (70-99) mg/dl Estimat Average Glucose mg/dl Hemoglobin A1c (4.5-5.6) % Lactate (0.4-2.0) mmol/L Calcium (8.5-10.1) mg/dl POC Ioniz Calcium Damon 1.19 (1.12-1.32) mmol/l Magnesium (1.8-2.4) mg/dl Total Bilirubin (0.2-1) mg/dl Direct Bilirubin (0-0.2) mg/dl AST (15-37) U/L ALT (12-78) U/L Alkaline Phosphatase (45-117) U/L Total Creatine Kinase (39-308) U/L Troponin I (0-0.045) ng/ml Total Protein (6.4-8.2) gm/dl Albumin (3.4-5.0) gm/dl Globulin (2.5-4.0) gm/dl Albumin/Globulin Ratio (0.9-2) Lipase (73-393) U/L Procalcitonin (0-0.5) ng/ml TSH (0.300-4.500) uIu/ml Urine Color Yellow Urine Appearance Clear (Clear) Urine pH 5.5 (4.5-7.5) Ur Specific [place] 1.015 (1.000-1.030) Urine Protein Negative (Negative) Urine Glucose (UA) Negative (Negative) Urine Ketones Negative (Negative) Urine Blood 1+ H (Negative) Urine Nitrite Negative (Negative) Urine Bilirubin Negative (Negative) Urine Urobilinogen Negative (Negative) Ur Leukocyte Esterase Negative (Negative) Urine WBC (Auto) 1-5 (0-5) /hpf Urine RBC (Auto) 5-10 H (0-4) /hpf U Hyaline Cast (Auto) 1-5 (0-5) /lpf U Epithel Cells (Auto) 0-5 (0-5) /lpf Urine Bacteria (Auto) Negative (Negative) Urine Opiates Screen (Neg) Ur Methadone, Qual (Neg) Urine Barbiturates (Neg) Ur Phencyclidine (PCP) (Neg) U Amphetamin/Meth Scrn (Neg) MDMA (Ecstasy) Screen (Neg) U Benzodiazepines Scrn (Neg) Ur Cocaine Metabolite (Neg) U Marijuana (THC) Screen (Neg) Ethyl Alcohol mg/dL (0-3) mg/dl Blood Type O Positive Antibody Screen NEGATIVE Crossmatch See Detail 07/11/19 07/11/19 07/11/19 Range/Units 23:28 23:28 23:28 WBC (4.8-10.8) K/uL RBC (4.7-6.1) M/uL Hgb (14.0-18.0) g/dL POC Hgb (14.0-18.0) g/dl Hct (42-52) % POC Hct (42-52) % MCV (80-100) fL MCH (25-34) pg MCHC (32-36) g/dL RDW Std Deviation (36.4-46.3) fL RDW Coeff of Carla (11.5-14.5) % Plt Count (130-400) K/uL MPV (7.4-10.4) fL Immature Gran % (Auto) % Neut % (Auto) % Lymph % (Auto) % [place] % (Auto) % Eos % (Auto) % Baso % (Auto) % Immature Gran # (Auto) (0.00-0.02) K/uL Neut # (Auto) (1.4-6.5) K/uL Lymph # (Auto) (1.2-3.4) K/uL [place] # (Auto) (0.11-0.59) K/uL Eos # (Auto) (0-0.5) K/uL Baso # (Auto) (0-0.2) K/uL APTT 20.8 L (21.0-31.0) Seconds PTT Ratio 0.8 ABG pH (7.35-7.45) ABG pCO2 (35-46) mmHg ABG pO2 (80-95) mm/Hg ABG HCO3 (19-24) mmol/L ABG O2 Saturation (90-95) % ABG Base Excess (-9-1.8) mEq/L Jay Test (Pos) Oxygen Given POC Sodium (135-144) mEq/L Sodium (136-145) mmol/L POC Potassium (3.3-5.0) mEq/L Potassium (3.5-5.1) mmol/L POC Chloride (101-112) mEq/L Chloride (98-107) mmol/L Carbon Dioxide (21-32) mmol/L POC Total CO2 (24-31) mEq/l Anion Gap (3-11) POC Anion Gap (16-25) mmol/L POC BUN (7-18) mg/dl BUN (7-18) mg/dl Creatinine (0.6-1.4) mg/dl POC Creatinine (0.6-1.3) mg/dl Est Cr Clr Drug Dosing ml/min Est GFR ( Amer) Est GFR (Non-Af Amer) BUN/Creatinine Ratio (10-20) Glucose (70-99) mg/dl POC Glucose (other) (70-99) mg/dl Estimat Average Glucose 120 mg/dl Hemoglobin A1c 5.8 H (4.5-5.6) % Lactate (0.4-2.0) mmol/L Calcium (8.5-10.1) mg/dl POC Ioniz Calcium Damon (1.12-1.32) mmol/l Magnesium (1.8-2.4) mg/dl Total Bilirubin (0.2-1) mg/dl Direct Bilirubin (0-0.2) mg/dl AST (15-37) U/L ALT (12-78) U/L Alkaline Phosphatase (45-117) U/L Total Creatine Kinase (39-308) U/L Troponin I (0-0.045) ng/ml Total Protein (6.4-8.2) gm/dl Albumin (3.4-5.0) gm/dl Globulin (2.5-4.0) gm/dl Albumin/Globulin Ratio (0.9-2) Lipase (73-393) U/L Procalcitonin 0.06 (0-0.5) ng/ml TSH (0.300-4.500) uIu/ml Urine Color Urine Appearance (Clear) Urine pH (4.5-7.5) Ur Specific [place] (1.000-1.030) Urine Protein (Negative) Urine Glucose (UA) (Negative) Urine Ketones (Negative) Urine Blood (Negative) Urine Nitrite (Negative) Urine Bilirubin (Negative) Urine Urobilinogen (Negative) Ur Leukocyte Esterase (Negative) Urine WBC (Auto) (0-5) /hpf Urine RBC (Auto) (0-4) /hpf U Hyaline Cast (Auto) (0-5) /lpf U Epithel Cells (Auto) (0-5) /lpf Urine Bacteria (Auto) (Negative) Urine Opiates Screen (Neg) Ur Methadone, Qual (Neg) Urine Barbiturates (Neg) Ur Phencyclidine (PCP) (Neg) U Amphetamin/Meth Scrn (Neg) MDMA (Ecstasy) Screen (Neg) U Benzodiazepines Scrn (Neg) Ur Cocaine Metabolite (Neg) U Marijuana (THC) Screen (Neg) Ethyl Alcohol mg/dL (0-3) mg/dl Blood Type Antibody Screen Crossmatch 11/25/18 11/25/18 Range/Units 23:28 23:28 WBC 11.76 H (4.8-10.8) K/uL RBC 4.40 L (4.7-6.1) M/uL Hgb 15.1 (14.0-18.0) g/dL POC Hgb (14.0-18.0) g/dl Hct 44.0 (42-52) % POC Hct (42-52) % MCV 100.0 (80-100) fL MCH 34.3 H (25-34) pg MCHC 34.3 (32-36) g/dL RDW Std Deviation 50.7 H (36.4-46.3) fL RDW Coeff of Carla 13.8 (11.5-14.5) % Plt Count 259 (130-400) K/uL MPV 11.9 H (7.4-10.4) fL Immature Gran % (Auto) 0.2 % Neut % (Auto) 57.3 % Lymph % (Auto) 35.6 % [place] % (Auto) 5.3 % Eos % (Auto) 1.5 % Baso % (Auto) 0.1 % Immature Gran # (Auto) 0.02 (0.00-0.02) K/uL Neut # (Auto) 6.74 H (1.4-6.5) K/uL Lymph # (Auto) 4.19 H (1.2-3.4) K/uL [place] # (Auto) 0.62 H (0.11-0.59) K/uL Eos # (Auto) 0.18 (0-0.5) K/uL Baso # (Auto) 0.01 (0-0.2) K/uL APTT (21.0-31.0) Seconds PTT Ratio ABG pH (7.35-7.45) ABG pCO2 (35-46) mmHg ABG pO2 (80-95) mm/Hg ABG HCO3 (19-24) mmol/L ABG O2 Saturation (90-95) % ABG Base Excess (-9-1.8) mEq/L Jay Test (Pos) Oxygen Given POC Sodium (135-144) mEq/L Sodium 140 (136-145) mmol/L POC Potassium (3.3-5.0) mEq/L Potassium 3.4 L (3.5-5.1) mmol/L POC Chloride (101-112) mEq/L Chloride 107 (98-107) mmol/L Carbon Dioxide 24 (21-32) mmol/L POC Total CO2 (24-31) mEq/l Anion Gap 9.0 (3-11) POC Anion Gap (16-25) mmol/L POC BUN (7-18) mg/dl BUN 22 H (7-18) mg/dl Creatinine 2.08 H (0.6-1.4) mg/dl POC Creatinine (0.6-1.3) mg/dl Est Cr Clr Drug Dosing 41.6 ml/min Est GFR ( Amer) 38.4 Est GFR (Non-Af Amer) 33.1 BUN/Creatinine Ratio 10.6 (10-20) Glucose 157 H (70-99) mg/dl POC Glucose (other) (70-99) mg/dl Estimat Average Glucose mg/dl Hemoglobin A1c (4.5-5.6) % Lactate (0.4-2.0) mmol/L Calcium 9.4 (8.5-10.1) mg/dl POC Ioniz Calcium Damon (1.12-1.32) mmol/l Magnesium 2.4 (1.8-2.4) mg/dl Total Bilirubin 0.4 (0.2-1) mg/dl Direct Bilirubin (0-0.2) mg/dl AST 17 (15-37) U/L ALT 19 (12-78) U/L Alkaline Phosphatase 64 (45-117) U/L Total Creatine Kinase 68 (39-308) U/L Troponin I < 0.015 (0-0.045) ng/ml Total Protein 7.4 (6.4-8.2) gm/dl Albumin 4.0 (3.4-5.0) gm/dl Globulin 3.4 (2.5-4.0) gm/dl Albumin/Globulin Ratio 1.2 (0.9-2) Lipase 128 (73-393) U/L Procalcitonin (0-0.5) ng/ml TSH 5.320 H (0.300-4.500) uIu/ml Urine Color Urine Appearance (Clear) Urine pH (4.5-7.5) Ur Specific [place] (1.000-1.030) Urine Protein (Negative) Urine Glucose (UA) (Negative) Urine Ketones (Negative) Urine Blood (Negative) Urine Nitrite (Negative) Urine Bilirubin (Negative) Urine Urobilinogen (Negative) Ur Leukocyte Esterase (Negative) Urine WBC (Auto) (0-5) /hpf Urine RBC (Auto) (0-4) /hpf U Hyaline Cast (Auto) (0-5) /lpf U Epithel Cells (Auto) (0-5) /lpf Urine Bacteria (Auto) (Negative) Urine Opiates Screen (Neg) Ur Methadone, Qual (Neg) Urine Barbiturates (Neg) Ur Phencyclidine (PCP) (Neg) U Amphetamin/Meth Scrn (Neg) MDMA (Ecstasy) Screen (Neg) U Benzodiazepines Scrn (Neg) Ur Cocaine Metabolite (Neg) U Marijuana (THC) Screen (Neg) Ethyl Alcohol mg/dL (0-3) mg/dl Blood Type Antibody Screen Crossmatch Diagnostic Findings BDOMEN AND PELVIS CT WITH IV CONTRAST CT DOSE: HISTORY: Severe abdominal pain. TECHNIQUE: Multiaxial CT images of the abdomen and pelvis were performed followi ng the use of intravenous contrast. A dose lowering technique was utilized adhering to the principles of ALARA. COMPARISON STUDY: None. FINDINGS: Groundglass densities at the lung bases suggestive of mild dependent change. Small foci of pneumoperitoneum within the upper abdomen. Focal thickening and inflammatory change at the duodenal bulb. There appears to be a small focal ulceration at the duodenal bulb with a small air-fluid level best seen on image 150. Therefore, these findings likely represent a perforated duodenal ulcer. This likely results in the pneumoperitoneum. Small amount of u pper abdominal ascites. The pancreas, spleen, and adrenal glands are unremarkable. Distended gallbladder. Hepatic and renal hypodense lesions. These favor cysts. No retroperitoneal lymphadenopathy. Moderate to severe bilateral hydroureteronephrosis to the level of the ureterovesical junctions. The bladder is also severely distended. Linear septation along the posterior aspect of the mid bladder. Therefore, the upper half of the bladder likely represents a large diverticulum. The prostate gland is normal in size. No evidence for bowel obstruction. Colonic diverticulosis. No evidence for diverticulitis. IMPRESSION: 1. Inflammatory change and a small air-fluid level surrounding the thickened duodenal bulb. There is also a small amount of pneumoperitoneum. And a small amount of upper abdominal ascites. Therefore, these findings are highly suspicious for a perforated duodenal ulcer. 2. Moderate to severe bilateral hydroureteronephrosis with a severely distended bladder. This suggests a bladder outlet obstruction. 3.Distended gallbladder. 4. Additional findings as described above. 5. These findings were discussed with Dr. Odonnell at 7:40 AM on 11/26/2018.
[2018-11-26 09:14] LABS: Albumin Level 3.5 gm/dl (3.4-5.0); BUN Creatinine Ratio 11.3 (10-20); Bilirubin Direct 0.1 mg/dl (0-0.2); Calcium 8.7 mg/dl (8.5-10.1); Creatinine Clr Calc Pharmacy 42.4 ml/min; Est GFR (African American) 39.3; Est GFR (Non-African American) 33.9; Potassium 4.3 mmol/L (3.5-5.1)
[2018-11-26 09:17] LABS: Bilirubin,Total 0.5 mg/dl (0.2-1); Globulin 3.4 gm/dl (2.5-4.0); Total Protein 6.9 gm/dl (6.4-8.2)
--- NOTE | 2018-11-26 09:48 | History & Physical Bridge Note ---
Date of Service November 26, 2018 History & Physical Bridge Note I have examined the patient, reviewed the History & Physical and in the interval since the performance of the History & Physical I have noted the following changes of clinical significance: no changes noted
--- NOTE | 2018-11-26 10:20 | Surgery Progress Note ---
Date of Service November 26, 2018 Supervising Physician Co-Signing Physician Notes Called regarding 2 possible trauma patients by the emergency department at approximately 1:10 this morning. Upon arrival to ED, first patient had been transferred to tertiary center for polytrauma. I was then informed by both the attending Dr. Smith and the PA Jessica Chamorro that the CT read for Mr. Jurado showed urinary retention with hydronephrosis and some abdominal ascites, no trauma and no other acute surgical findings. I asked if they still wanted me to see the patient and they stated I did not need to see him and they would not place a surgery consult. I did not examine the patient. I was informed by the hotel operations manager surgical PA that the radiology official read this morningn showed concern for perforated duodenal ulcer, and they proceeded with management of the patient. Results & Data Vital Signs (Past 12 Hours) Vital Signs Temp Pulse Pulse Resp BP BP BP 11/26/18 07:16 37.1 C 102 H 18 170/104 H 11/26/18 05:03 36.5 C 97 H 20 142/87 H 11/26/18 04:43 36.7 C 100 H 16 149/92 H 11/26/18 02:50 96 H 22 151/96 H 11/26/18 02:00 102 H 18 157/72 H 11/26/18 01:31 104 H 20 190/109 H 11/26/18 01:29 22 11/26/18 01:16 104 H 142/113 H 11/26/18 01:15 104 H 11/26/18 01:12 109 H 149/109 H 11/26/18 01:01 97 H 29 H 169/96 H 11/26/18 00:59 101 H 23 152/100 H 11/26/18 00:50 102 H 22 152/100 H 11/26/18 00:45 103 H 24 11/26/18 00:40 96 H 25 H 11/26/18 00:38 143/110 H 11/26/18 00:07 11/25/18 23:55 83 20 145/88 H 11/25/18 23:51 90 28 H 145/88 H Pulse Ox 11/26/18 07:16 94 11/26/18 05:03 94 11/26/18 04:43 93 11/26/18 02:50 98 11/26/18 02:00 94 11/26/18 01:31 94 11/26/18 01:29 96 11/26/18 01:16 98 11/26/18 01:15 97 11/26/18 01:12 89 L 11/26/18 01:01 11/26/18 00:59 11/26/18 00:50 92 11/26/18 00:45 11/26/18 00:40 11/26/18 00:38 11/26/18 00:07 97 11/25/18 23:55 94 11/25/18 23:51 97
[2018-11-26] MEDS ORDERED: BUPIVACAINE 0.25% 30 ML VIAL ONE (10:38)
--- NOTE | 2018-11-26 11:04 | Post Operative Brief Note ---
Immediate Post Op Note v1 Date of Surgery November 26, 2018 Pre & Post Diagnosis Operation Date: 11/26/18 10:10 Pre-Op Diagnosis: duodenal ulcer perforation Post-Op Diagnosis: duodenal ulcer perforation Procedure Operation Date: 11/26/18 10:10 Actual Procedures p Exploratory Laparotomy, Repair of duodenal ulcer perforation(Not Applicable) - Eligio Tracey MD Surgeon Eligio Tracey MD Mapping Pilot Maribel Rodriguez PA-C Estimated Blood Loss 50 Findings Consistent with Post-Op Diagnosis Drains Deejay Drain (19 fr x 2)
[2018-11-26] MEDS ORDERED: ATROPINE SULFATE 0.1 MG/ML 10ML SYR IV PRN (11:46)
[2018-11-26] MEDS ORDERED: ONDANSETRON INJ 2 MG/ML 2 ML VIAL IV PRN (11:46)
[2018-11-26] MEDS ORDERED: fentaNYL citrate 100 MCG/2 ML VIAL IV PRN (11:46)
[2018-11-26] MEDS ORDERED: ePHEDrine sulfate 50 MG/ML AMP IV PRN (11:46)
--- NOTE | 2018-11-26 11:49 | Anesthesiology Consultation ---
Date of Service November 26, 2018 Assessment & Plan (1) Encounter for pre-operative examination: Chart Review Chart Review: Acceptable Risk for Surgery and Patient NOT seen in Pre Admission Testing Consults Requested none ASA [id number] Proposed Anesthesia Anesthesia Type: General Risk / Benefits Reviewed With: PT / POA / Parent / Guardian, Accepts Plan and I nformed Consent Obtained History Surgery Operation Date: 11/26/18 10:10 Proposed Procedures p Exploratory Laparotomy, Possible Bowel Resection, Possible Ostomy - Eligio Tracey MD Height/Weight Height: 6 ft 1 in Weight: 89.6 kg Allergies Allergy/AdvReac Type Severity Reaction Status Date / Time No Known Allergies Allergy Unverified 11/26/18 00:21 Medications Home Medications Medication Instructions Recorded Confirmed Last Taken No Known Home Medications 11/26/18 11/26/18 Unknown Active Medications Generic Name Dose Route Start Last Admin Trade Name Freq PRN Reason Stop Dose Admin Hydromorphone HCl 1 mg 11/26/18 08:20 11/26/18 08:52 Dilaudid IV 12/10/18 02:48 1 mg Q2H PRN Administration Pain Piperacillin Sod/Tazobactam Sod 3.375 gm in 115 mls @ 28.75 mls/hr 11/26/18 08:00 11/26/18 08:43 Zosyn IV 12/06/18 07:59 28.8 mls/hr Q8H VIVIAN Administration Protocol NPO Date Last Intake of Fluids: 11/25/18 Time Last Intake of Fluids: 21:00 Date Last Intake of Solids: 11/25/18 Time Last Intake of Solids: 21:00 Past Medical History Medical History No acute medical problems Exercise / Class Metabolic Activity II 4-5 Yardwork/Stairs/Walk up hill (at baseline) Past Anesthesia History No Hx of Anesthesia Complications and No Family Hx of Anesthesia Complications History of PONV No Hx of PONV and No Hx of Motion Sickness Social History Smoking Status: Current every day smoker tobacco type: cigarettes Smoking cigarettes per day: 20 PER DAY/1 PACK A DAY Do You Dip or Chew Tobacco: No Hx Alcohol Use: No Hx Substance Use: No substance use type: does not use Physical Exam Vital Signs Last Vital Signs Temp 37.1 C 11/26/18 07:16 Pulse 114 H 11/26/18 08:00 Resp 18 11/26/18 07:16 BP 170/104 H 11/26/18 07:16 Pulse Ox 94 11/26/18 07:16 ENMT Mouth: + poor dentition and + chipped teeth Thyromental Distance: > or= 3.5 Finger Breadths Mallampati Class: II Neck normal visual inspection Respiratory normal respiratory effort Auscultation: lungs clear to auscultation bilaterally Cardiovascular Rate/Rhythm: regular rate and regular rhythm Psychiatric Orientation: alert Testing Laboratory Results 11/26/18 08:26 11/26/18 08:26 APTT 20.8 Seconds (21.0-31.0) L 11/25/18 23:28 Hemoglobin A1c 5.8 % (4.5-5.6) H 11/25/18 23:28 Urine Color Yellow 11/26/18 01:18 Urine Appearance Clear (Clear) 11/26/18 01:18 Urine pH 5.5 (4.5-7.5) 11/26/18 01:18 Ur Specific Bruno 1.015 (1.000-1.030) 11/26/18 01:18 Urine Protein Negative (Negative) 11/26/18 01:18 Urine Glucose (UA) Negative (Negative) 11/26/18 01:18 Urine Ketones Negative (Negative) 11/26/18 01:18 Urine Nitrite Negative (Negative) 11/26/18 01:18 Ur Leukocyte Esterase Negative (Negative) 11/26/18 01:18 Urine WBC (Auto) 1-5 /hpf (0-5) 11/26/18 01:18 Urine RBC (Auto) 5-10 /hpf (0-4) H 11/26/18 01:18 U Hyaline Cast (Auto) 1-5 /lpf (0-5) 11/26/18 01:18 U Epithel Cells (Auto) 0-5 /lpf (0-5) 11/26/18 01:18 Urine Bacteria (Auto) Negative (Negative) 11/26/18 01:18 Blood Type O Positive 11/26/18 00:38 Antibody Screen NEGATIVE 11/26/18 00:38 11/26/18 00:06 POC Glucose (other) [address]: Free air in abdomen. Pulmonary emphysema
[2018-11-26] MEDS ORDERED: NEOSTIGMINE METHYLSULFATE 5 MG/5 ML SYR ONE (11:57)
[2018-11-26] MEDS ORDERED: GLYCOPYRROLATE 0.2 MG/ML VIAL ONE (11:57)
--- NOTE | 2018-11-26 12:19 | Anesthesiology Progress Note ---
Date of Service November 26, 2018 Anesthesia Post Procedure Vital Signs Vital Signs: Temp Pulse Pulse Pulse Resp BP BP 11/26/18 12:05 83 19 156/91 H 11/26/18 11:55 98 H 16 109/93 11/26/18 11:45 91 H 21 155/93 H 11/26/18 11:39 36.7 C 97 H 20 157/92 H 11/26/18 08:00 114 H 11/26/18 07:16 37.1 C 102 H 18 11/26/18 05:03 36.5 C 97 H 20 142/87 H 11/26/18 04:43 36.7 C 100 H 16 11/26/18 02:50 96 H 22 11/26/18 02:00 102 H 18 11/26/18 01:31 104 H 20 11/26/18 01:29 22 11/26/18 01:16 104 H 142/113 H 11/26/18 01:15 104 H 11/26/18 01:12 109 H 149/109 H 11/26/18 01:01 97 H 29 H 169/96 H 11/26/18 00:59 101 H 23 152/100 H 11/26/18 00:50 102 H 22 11/26/18 00:45 103 H 24 11/26/18 00:40 96 H 25 H 11/26/18 00:38 143/110 H 11/26/18 00:07 11/25/18 23:55 83 20 145/88 H 11/25/18 23:51 90 28 H 145/88 H BP Pulse Ox 11/26/18 12:05 97 11/26/18 11:55 98 11/26/18 11:45 100 11/26/18 11:39 98 11/26/18 08:00 11/26/18 07:16 170/104 H 94 11/26/18 05:03 94 11/26/18 04:43 149/92 H 93 11/26/18 02:50 151/96 H 98 11/26/18 02:00 157/72 H 94 11/26/18 01:31 190/109 H 94 11/26/18 01:29 96 11/26/18 01:16 98 11/26/18 01:15 97 11/26/18 01:12 89 L 11/26/18 01:01 11/26/18 00:59 11/26/18 00:50 152/100 H 92 11/26/18 00:45 11/26/18 00:40 11/26/18 00:38 11/26/18 00:07 97 11/25/18 23:55 94 11/25/18 23:51 97 Pain Intensity Lower Abdomen: Pain Intensity: 7 Abdomen: Pain Intensity: 9 Transfer of Care Handoff Completed per policy Notes Mental Status: alert / awake / arousable Patient Amnestic to Procedure: Yes Nausea / Vomiting: adequately controlled Pain: adequately controlled Airway Patency, RR, SpO2: stable & adequate BP & HR: stable & adequate Hydration State: stable & adequate Anesthetic Complications: no major complications apparent Notes: SC TAPs blocks working well in pacu
--- NOTE | 2018-11-26 13:34 | Operative Report ---
DATE OF OPERATION: 11/26/2018 PREOPERATIVE DIAGNOSIS: Perforated duodenal ulcer. POSTOPERATIVE DIAGNOSIS: Perforated duodenal ulcer. PROCEDURE PERFORMED: Exploratory laparotomy with buttressed repair of anterior perforated duodenal ulcer. SURGEON: Eligio Tracey MD RADIO INTERFERENCE SUPERVISOR: Maribel Rodriguez PA-C ESTIMATED BLOOD LOSS: 50 mL. DRAINS: Edejay drain near the repair and Deejay drain in the pelvis. COMPLICATIONS: None. FLUIDS: 2 liters of crystalloid. INDICATION FOR PROCEDURE: This is a 63-year-old white male who came in last night with acute abdominal pain, underwent a CT scan which showed some fluid in his pelvis and questionable findings of an abnormal gallbladder. He continued his workup, was evaluated by us and was found to have peritonitis consistent with perforated duodenal ulcer. We will plan on doing an exploratory laparotomy. He understands the risk of reoperation, abscess, bleeding, and need for postoperative intubation. DESCRIPTION OF PROCEDURE: The patient was taken to the OR and underwent excellent general endotracheal anesthesia. His abdomen was prepped and draped in normal sterile fashion. Upper midline incision was made and taken down into his fascia. His peritoneal cavity was entered. He had a large amount of turbulent fluid consistent with perforated duodenal ulcer. This was irrigated and then suctioned out. A Alfredo retractor was placed and his ulcer was identified anteriorly in his duodenum. We then helped anesthesia place an NG tube into the body of the stomach. Once this was in place, four 3-0 Vicryl sutures were used to close the hole which was approximately 0.5 cm in diameter. Once this was closed, a piece of omentum was then identified and freed. This was placed over the repair and secured with tails of the suture creating a buttressed repair. The abdomen was then irrigated out with 3 liters of warm saline. A Deejay drain was placed above the repair underneath the liver and a Deejay drain was placed in the pelvis. Once these were in place, the fascia was closed with running PDS. The skin was closed after it was irrigated with cassia. Sterile dressings were applied. The patient tolerated the procedure well with no complications, sent to postop recovery for a period of observation and will be sent to floor for his care. I attest to the content of the Intraoperative Record and any orders documented therein. Any exception s are noted below.
[2018-11-26] MEDS: PANTOprazole 40 MG in DEXTROSE 5% 100 ML IV SCH ×3 (13:35→19:36)
[2018-11-26] MEDS: SODIUM CHLORIDE 0.9% 1000ML 1,000 ML IV SCH ×3 (13:35→21:19)
[2018-11-26] MEDS ORDERED: TAMSULOSIN HCL 0.4 MG CAP PO SCH (21:00)
[2018-11-26] MEDS: NICOTINE 14 MG/24 HR PATCH TD SCH (22:05)
[2018-11-27] MEDS: PANTOprazole 40 MG in DEXTROSE 5% 100 ML IV SCH ×5 (00:13→21:09)
[2018-11-27] MEDS: HYDROmorphone INJ 0.5 MG/0.5 ML SYR IV PRN ×3 (02:24→22:06)
[2018-11-27] MEDS: SODIUM CHLORIDE 0.9% 1000ML 1,000 ML IV SCH ×3 (03:22→19:07)
[2018-11-27 06:29] LABS: Basophils # (auto) 0.01 K/uL (0-0.2); Basophils % (auto) 0.1 %; Eosinophils # (auto) 0.02 K/uL (0-0.5); Eosinophils % (auto) 0.2 %; Hematocrit (blood only) 34.4 % (42-52); Hemoglobin 11.5 g/dL (14.0-18.0); Immature Granulocytes # (auto) 0.03 K/uL (0.00-0.02); Immature Granulocytes % (auto) 0.3 %; Lymphocytes # (auto) 1.86 K/uL (1.2-3.4); Lymphocytes % (auto) 15.7 %; Mean Corpuscular Hgb Conc 33.4 g/dL (32-36); Mean Corpuscular Volume 101.5 fL (80-100); Mean Platelet Volume 11.4 fL (7.4-10.4); Monocytes # (auto) 0.96 K/uL (0.11-0.59); Monocytes % (auto) 8.1 %; Neutrophils % (auto) 75.6 %; Platelet Count 169 K/uL (130-400); RDW Coefficient of Variation 14.3 % (11.5-14.5); RDW Standard Deviation 53.3 fL (36.4-46.3); Red Blood Count 3.39 M/uL (4.7-6.1); White Blood Count 11.88 K/uL (4.8-10.8)
[2018-11-27 06:54] LABS: BUN Creatinine Ratio 12.2 (10-20); Calcium 8.2 mg/dl (8.5-10.1); Creatinine Clr Calc Pharmacy 41.6 ml/min; Est GFR (African American) 38.4; Est GFR (Non-African American) 33.1; Potassium 4.7 mmol/L (3.5-5.1)
[2018-11-27 06:58] LABS: Prostate Specific Antigen 0.828 ng/ml (0-4); T4 Free Thyroxine 1.26 ng/dl (0.8-1.6)
[2018-11-27] MEDS: PIPERACILLIN/TAZOBACTAM 3.375 GM/115 ML BAG IV SCH ×3 (08:35→23:29)
[2018-11-27] MEDS ORDERED: AMLODIPINE BESYLATE 5 MG TAB PO SCH (09:00)
[2018-11-27 09:25] LABS: T3 Free 1.48 pg/ml (2.3-4.2)
[2018-11-27 10:05] LABS: Act87 Hepatitis C IgG Screen Neg (Neg)
--- NOTE | 2018-11-27 10:55 | Surgery Progress Note ---
Date of Service November 27, 2018 Assessment & Plan (1) Duodenal perforation: con't npo ngt to suction ambulate with ngt clamped IS will study repair via ngt on Thursday to 3rd floor med surg floor once medically clear Subjective doing well pain controlled Review of Systems Constitutional: no fever and no chills Respiratory: no dyspnea Cardiovascular: no chest pain Gastrointestinal: + abdominal pain; no nausea and no vomiting Musculoskeletal: no back pain Neurologic: no localized weakness Physical Exam Constitutional: well developed and well nourished Neck: trachea midline Respiratory: normal respiratory effort Auscultation: lungs clear to auscultation bilaterally Cardiovascular: Rate/Rhythm: regular rate and regular rhythm Gastrointestinal (Abdomen): Inspection/Auscultation: normal bowel sounds Percussion/Palpation: + abdomen tender and abdomen soft Skin: no rashes, warm and dry Results & Data Vital Signs (Past 12 Hours) Vital Signs Temp Pulse Pulse Resp BP Pulse Ox 11/27/18 07:56 36.6 C 77 24 133/64 95 11/27/18 03:22 36.7 C 72 19 119/72 91 11/27/18 00:54 70 11/26/18 23:03 36.5 C 74 18 115/70 94
--- NOTE | 2018-11-27 12:41 | Urology Progress Note ---
Date of Service November 27, 2018 Subjective Patient resting comfortably with Bynum catheter in place discussed the need possibly to do CIC. Patient understands and also his creatinine has not significantly come down overnight but still just above 2. We will continue to follow Results & Data Vital Signs (Past 12 Hours) Vital Signs Temp Pulse Pulse Resp BP Pulse Ox 11/27/18 11:00 36.5 C 72 19 130/74 94 11/27/18 07:56 36.6 C 77 24 133/64 95 11/27/18 03:22 36.7 C 72 19 119/72 91 11/27/18 00:54 70
--- NOTE | 2018-11-27 13:25 | Hospitalist Progress Note ---
Date of Service November 27, 2018 Assessment & Plan (1) Duodenal perforation: 11/27/2018 Status post postoperative day 1 exploratory laparotomy repair of duodenal perforation Patient is recovering well from postop No evidence of sepsis or peritoneal infection Normal vitals, no fever or chills, continue empiric antibiotic with IV Zosyn Appreciate input help from surgical team We will continue NG tube suction, 11/26/2018 Presented with severe epigastric abdominal pain, CT abdomen pelvis shows inflammation around and a small air-fluid level surrounding the thickened duodenal bulb, with small amount of pneumoperitoneum, small amount of upper abdominal ascites, suggestive of perforated duodenal ulcer History of NSAID use Ordered for n.p.o., IV Protonix drip, IV fluids Repeat labs, CBC with differential, lactic acid, procalcitonin level, CMP now Ordered for stat surgery consult, Discussed with on-call surgery PA, patient will need emergent surgical evaluation and possible to OR for perforated duodenal ulcer as soon as possible (2) NSAID long-term use: Patient has been taking ibuprofen sometimes 4 times daily, has been taking for intermittent abdominal pain which has been ongoing for last several months, does not recall whether he takes with with meal or not Also been taking Motrin as needed as well Denies prior history of GERD, no EGD recently Does not take any PPI or [id number] H2 mally Presents with acute renal failure/ perforated duodenal ulcer-required exploratory laparotomy Continue IV Protonix drip will need emergent exploratory laparotomy for perforated duodenal ulcer-surgery team updated Patient is counseled repeatedly to avoid NSAIDs Will need outpatient GI follow-up (3) Hydronephrosis: CT abdomen pelvis shows severe bilateral hydronephrosis with suggestive of bladder outlet obstruction Has Bynum catheter placed Appreciate input from urology, Recommend continue Bynum catheter for drainage during hospital admission May require intermittent self straight cath on discharge Will need continued outpatient urology follow-up Nephrology consulted as creatinine remains elevated2, after Bynum catheter drainage and IV resuscitation (4) Acute urinary retention: Secondary to acute bladder outlet obstruction Continue Bynum catheter for urinary drainage Urology consult appreciated (5) Acute renal failure: Acute renal failure with elevated creatinine more than 2 multifactorial In the setting of dehydration/poor p.o. intake for severe abdominal pain for past few days, duodenal perforation, chronic NSAID use, bladder outlet obstruction Bynum placed for urinary drainage Continued with IV aggressive IV fluid resuscitation Patient got IV contrast for CT abdomen pelvis, nephrology consult resulted, as creatinine not improved after aggressive IV resuscitation, (6) Hypertensive urgency: Possible secondary to severe abdominal pain, discomfort Hold p.o. Norvasc for acute abdomen,duodenal perforation Pain control, correction of dehydration with IV fluids Blood pressure remains stable CODE STATUS: Full code DVT prophylaxis SCD and teds Avoid pharmacological anticoagulation status post exploratory laparotomy Disposition: Patient stable to be transferred to medical surgical floor Expected to be discharged home when medically stable Patient follows with [facility] Patient is status post postoperative day 1: After exploratory laparotomy for perforated duodenal ulcer NG tube draining drain dark bilious drainage Patient appears to be comfortable, says abdomen pain is controlled with current pain medication regimen Has not been able to pass any gas No fever or chills, vitals remained stable Physical Exam Constitutional: WD/WN, vitals as above no acute distress Eyes: PERRL, conjunctivae normal, anicteric sclerae ENMT: NG tube present Neck: trachea midline, no thyromegaly Respiratory: normal respiratory effort, lungs clear to auscultation Cardiovascular: RRR, no murmur, no edema Gastrointestinal (Abdomen): Status post expiratory laparotomy, abdominal bandage present, MARISA tube draining serosanguineous drainage Musculoskeletal: no cyanosis or clubbing, extremities motor strength 5/5 Skin: no rashes, warm and dry Neurologic: PERRL, EOMI, accommodation nl, no face palsy, no dysarthria Psychiatric: A+Ox3, euthymic affect Results & Data Vital Signs (Past 12 Hours) Vital Signs Temp Pulse Resp BP Pulse Ox 11/27/18 11:00 36.5 C 72 19 130/74 94 11/27/18 07:56 36.6 C 77 24 133/64 95 11/27/18 03:22 36.7 C 72 19 119/72 91
[2018-11-28] MEDS: PANTOprazole 40 MG in DEXTROSE 5% 100 ML IV SCH ×2 (01:41→06:06)
[2018-11-28] MEDS: SODIUM CHLORIDE 0.9% 1000ML 1,000 ML IV SCH ×4 (01:42→23:35)
[2018-11-28] MEDS: HYDROmorphone INJ 0.5 MG/0.5 ML SYR IV PRN (07:10)
[2018-11-28] MEDS: PIPERACILLIN/TAZOBACTAM 3.375 GM/115 ML BAG IV SCH ×3 (07:35→23:35)
[2018-11-28] MEDS: NICOTINE 14 MG/24 HR PATCH TD SCH (07:35)
[2018-11-28 07:36] LABS: Creatinine Clr Calc Pharmacy 46.8 ml/min; Est GFR (African American) 44.2; Est GFR (Non-African American) 38.2
[2018-11-28] MEDS ORDERED: PROMETHAZINE HCL 12.5 MG in SODIUM CHLORIDE 0.9% 50 ML IV PRN (09:34)
[2018-11-28] MEDS: HydrALAZINE HCL 20 MG/ML VIAL IV PRN ×2 (09:37→23:35)
[2018-11-28] MEDS: HYDROmorphone INJ 1 MG/ML SYRINGE IV PRN ×2 (09:39→19:36)
--- NOTE | 2018-11-28 09:50 | Urology Progress Note ---
Date of Service November 28, 2018 Assessment & Plan (1) Acute urinary retention: A/P 63 yo male with perforated duodenal ulcer, POD#2 s/p repair, indwelling lovett for bilateral hydro, obstructive uropathy. ARF likely multifactorial. Nephrology consulted. Will leave lovett in place on discharge for decompression of bladder and upper tracts. Etiologies of his ongoing difficulties reviewed. plan will be outpatient TOV and CIC to avoid further obstructive insult to the urinary tract. Will arrange and also plan on outpatient cysto. I suspect a TURP will be needed at some point to improve his urologic condition. Leg bag teaching. Thank you for allowing us to participate in this patient's acute care. Please recall our service PRN new questions or concerns. Subjective 63 yo male with perforated duodenal ulcer, POD #2 s/p repair, bilateral hydro with obstructive nephropathy s/p lovett drainage with slow improvement of Cr over time. His past notes are reviewed. Lovett, NGT in place, urine clear. Slow improvement of Cr noted. Dr. Lopez, in room today, care reviewed. Patient denies new c/o, somewhat confused about events up until present. He notes chronic obstructive voiding symptoms, Q2 hour frequency with urgency and UI, intermittent bilateral flank pain, NSAID use noted as well. Review of Systems Constitutional: no fever and no chills Ear, Nose, Mouth, Throat: no ear trauma Respiratory: no hemoptysis Cardiovascular: no chest pain Gastrointestinal: + abdominal pain Genitourinary: + difficulty urinating (chronic, lovett currently in place) Integumentary: no acne and no boil Neurologic: no paralysis and no numbness Hematologic / Lymphatic: no easy bleeding Physical Exam Constitutional: WD/WN, vitals as above Eyes: eyes not dysmorphic ENMT: Ears: no external ear abnormality Neck: trachea midline; no anterior neck swelling Respiratory: no respiratory distress and does not use accessory muscles Cardiovascular: Vessels: radial pulses present Musculoskeletal: Head/Neck/Chest: normocephalic Skin: normal turgor Neurologic: awake; not obtunded Lymphatic: no lymphadenopathy Results & Data Vital Signs (Past 12 Hours) Vital Signs Temp Pulse Resp BP BP Pulse Ox 11/28/18 07:00 36.7 C 108 H 18 192/98 H 94 11/27/18 22:45 36.6 C 87 15 147/85 H 94 11/27/18 22:22 36.7 C 89 16 147/80 H 93 Laboratory Results Laboratory Results - last 48 hr 11/27/18 11/27/18 11/27/18 05:29 05:29 05:29 WBC 11.88 H RBC 3.39 L Hgb 11.5 L D Hct 34.4 L MCV 101.5 H MCH 33.9 MCHC 33.4 RDW Std Deviation 53.3 H RDW Coeff of Carla 14.3 Plt Count 169 MPV 11.4 H Immature Gran % (Auto) 0.3 Neut % (Auto) 75.6 Lymph % (Auto) 15.7 Green % (Auto) 8.1 Eos % (Auto) 0.2 Baso % (Auto) 0.1 Immature Gran # (Auto) 0.03 H Neut # (Auto) 9.00 H Lymph # (Auto) 1.86 Green # (Auto) 0.96 H Eos # (Auto) 0.02 Baso # (Auto) 0.01 Sodium 142 Potassium 4.7 Chloride 110 H Carbon Dioxide 28 Anion Gap 4.0 BUN 25 H Creatinine 2.08 H Est Cr Clr Drug Dosing 41.6 Est GFR ( Amer) 38.4 Est GFR (Non-Af Amer) 33.1 BUN/Creatinine Ratio 12.2 Glucose 94 Calcium 8.2 L Prostate Specific Ag 0.828 Free T4 1.26 Free T3 1.48 L Hepatitis C Ab Screen Neg 11/28/18 06:46 WBC RBC Hgb Hct MCV MCH MCHC RDW Std Deviation RDW Coeff of Carla Plt Count MPV Immature Gran % (Auto) Neut % (Auto) Lymph % (Auto) Green % (Auto) Eos % (Auto) Baso % (Auto) Immature Gran # (Auto) Neut # (Auto) Lymph # (Auto) Green # (Auto) Eos # (Auto) Baso # (Auto) Sodium Potassium Chloride Carbon Dioxide Anion Gap BUN Creatinine 1.85 H Est Cr Clr Drug Dosing 46.8 Est GFR ( Amer) 44.2 Est GFR (Non-Af Amer) 38.2 BUN/Creatinine Ratio Glucose Calcium Prostate Specific Ag Free T4 Free T3 Hepatitis C Ab Screen
--- NOTE | 2018-11-28 10:22 | Surgery Progress Note ---
Date of Service November 28, 2018 Assessment & Plan (1) Duodenal perforation: NPO IVF likely study tomorrow; if no leak then begin clears tomorrow pelvic drain out soon Present on Admission?: Yes Subjective a little more pain this AM NPO ngt still draining bilious Review of Systems Constitutional: no fever and no chills Respiratory: no cough and no dyspnea Cardiovascular: no chest pain Gastrointestinal: + abdominal pain; no nausea and no vomiting Musculoskeletal: no back pain Integumentary: no rash Physical Exam Constitutional: well developed and well nourished Neck: trachea midline Respiratory: normal respiratory effort, lungs clear to auscultation Cardiovascular: RRR, no murmur, no edema Gastrointestinal (Abdomen): Inspection/Auscultation: normal bowel sounds Percussion/Palpation: + abdomen tender and abdomen soft drains serosanguinous Results & Data Vital Signs (Past 12 Hours) Vital Signs Temp Pulse Resp BP BP Pulse Ox 11/28/18 07:00 36.7 C 108 H 18 192/98 H 94 11/27/18 22:45 36.6 C 87 15 147/85 H 94 11/27/18 22:22 36.7 C 89 16 147/80 H 93
--- NOTE | 2018-11-28 11:38 | Nephrology Consultation ---
Date of Consultation November 28, 2018 Assessment & Plan (1) Renal insufficiency: renal insufficiency, chronicity unknown. last known creatinine prior to admission was 1.2 in 07/2017. Presenting creatinine 2.1, now at 1.9. pt taking qid nsaids x days (per pt to me not months) prior to admission. also w/ hx of uncontrolled HTN, moderate-severe BL hydroureteronephrosis now s/p decompression w/ lovett; also s/p IV contrast on admission. will needs [id number] of follow up to establish new baseline creatinine. his chemistries yesterday and volume status today are acceptable, though mild hyperchloremia noted w/ labs yesterday and NS therapy. he is polyuric > not uncommon after relieving obstruction; also receiving heavy salt loads w/ IVF and abtx. -daily bmp while in house -repeat UACM only if renal function worsens -NS at 125 ml hourly reasonable IVF for now -cont strict I/O -no nsaids now or in future -also with uncontrolled HTN (see below) -ensure post d/c urology f/u Present on Admission?: Yes (2) Hypertension: pt with uncontrolled BP in house (likely a component here of pain) as well as last spring. he is strict NPO currently. -needs to avoid nsaids indefinitely -control pain -agree w/ IV hydralazine discussed w/ dr lopez -pt declines higher dose nicotine patch at this time; denies other recent substance use but would monitor for withdrawal -consider when taking po low dose beta mally and/or calcium channel mally -avoid DEBBIE/ARB, diuretics for now Present on Admission?: Yes History of Present Illness Reason for Consultation: acute renal failure Requesting Physician: Dr Lopez Attending Physician: Leidy Lopez MD History of Present Illness 63 y/o M admitted 11/26 w/ HTN urgency and urinary retention causing a few days of abdominal pain w/ N/v and w/ BL hydronephrosis whom I'm asked to see for FAVIAN. Little outpt data is available on this pt for baseline renal function: there is one creatinine in EPIC from 07/2017 w/ creatinine 1.2. Pt takes no meds as OP, though he was taking nsaids up to 4X daily for the week prior to admission. He states other than this does not use nsaids routinely except ASA 81 mg daily. PMH includes active tobacco abuse (1 PPD currently down from 2.5 PPD previously), HTN w/ OP SBP 2018 in 140-160s generally (July- October 2017). Pt state he is aware of his HTN and lost 120 lb intentionally in past year to address this. Denies using medications to achieve wt loss which he did w/ portion control and exercise. Denies FH of CKD/ESRD. Does endorse remote hx of EtOH and other substance abuse as below. His presenting creatinine was 2.1; today it is 1.9. His presenting UA was remarkable for 1+ blood and otherwise bland sediment. Admission CT w/ IV contrast abd/pelvis showed perforated duodenal ulcer as well as bladder outlet obstruction w/ at least moderate BL hydroureteronephrosis. On 11/26, he underwent emergent ulcer repair. Surgery continues to follow and plans study tomorrow to evaluate for any possible leaks; if no leak, dietary advance planned. Urology was also consulted and lovett was placed w/ plan for further studies/OP cystoscopy, CIC after d/c. TURP will likely be needed in future. 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 [employer] Required: No Beliefs That Will Affect Care: None Current Living Situation: Spouse Current Living Situation Comment: WITH Other Information That Helps Us Care for You: No Feels Safe at Home: Yes Safety Concerns: Feels Safe At This Time Smoking Status: Current every day smoker Tobacco Type: cigarettes Cigarettes Per Day: 20 PER DAY/1 PACK A DAY Do You Dip or Chew Tobacco: No Second Hand Exposure: No Tobacco Cessation Education Requested by Patient: No Hx Alcohol Use: Yes (REMOTE hx of daily "heavy" use; none currently) Hx Substance Use: Yes substance use type: does not use, former substance user, heroin and opiates Review of Systems Review of Systems: All systems reviewed & are unremarkable except as noted in HPI & below Constitutional: as per Subjective / HPI Respiratory: + cough; no dyspnea Cardiovascular: no chest pain, no palpitations and no edema Gastrointestinal: + abdominal pain (repeatedly states surprise that upper GI pain persists) 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) Physical Exam Constitutional: well developed, well nourished and + acute distress (mild from pain) on RA A&0 x 3 Eyes: EOM intact bilaterally ENMT: Ears: no external ear abnormality Nose: no external nose abnormality Mouth: + dry oral mucous membranes NGT present to suction w/ copious output Neck: no nuchal rigidity Respiratory: normal respiratory effort Auscultation: lungs clear to auscultation bilaterally and + diminished lung sounds occasional thick cough in exam Cardiovascular: Rate/Rhythm: regular rhythm and + tachycardic Extremities: no edema Gastrointestinal (Abdomen): Inspection/Auscultation: + abdomen distended (slight) and + hypoactive bowel sounds Percussion/Palpation: abdomen soft; abdomen nontender drain present; Musculoskeletal: Extremities: strength 5/5 throughout Skin: no rashes, warm and dry Neurologic: hinojosa, fluent speech, no tremor Psychiatric: Orientation: alert, oriented x 3 and cooperative Eye Contact: good eye contact Speech: normal rate/rhythm/volume of speech Affect: + a nxious affect Insight: good insight Judgement: good judgement Genitourinary: lovett w/ ample clear urine Results & Data Vital Signs (Past 12 Hours) Vital Signs Temp Pulse Resp BP BP Pulse Ox 11/28/18 11:18 36.7 C 111 H 18 160/90 H 92 11/28/18 07:00 36.7 C 108 H 18 192/[address] abd/pelvis 11/26 FINDINGS: Groundglass densities at the lung bases suggestive of mild dependent change. Small foci of pneumoperitoneum within the upper abdomen. Focal thickening and inflammatory change at the duodenal bulb. There appears to be a small focal ulceration at the duodenal bulb with a small air-fluid level best seen on image 150. Therefore, these findings likely represent a perforated duodenal ulcer. This likely results in the pneumoperitoneum. Small amount of upper abdominal ascites. The pancreas, spleen, and adrenal glands are unremarkable. Distended gallbladder. Hepatic and renal hypodense lesions. These favor cysts. No retroperitoneal lymphadenopathy. Moderate to severe bilateral hydroureteronephrosis to the level of the ureterovesical junctions. The bladder is also severely distended. Linear septation along the posterior aspect of the mid bladder. Therefore, the upper half of the bladder likely represents a large diverticulum. The prostate gland is normal in size. No evidence for bowel obstruction. Colonic diverticulosis. No evidence for diverticulitis. IMPRESSION: 1. Inflammatory change and a small air-fluid level surrounding the thickened duodenal bulb. There is also a small amount of pneumoperitoneum. And a small amount of upper abdominal ascites. Therefore, these findings are highly suspicious for a perforated duodenal ulcer. 2. Moderate to severe bilateral hydroureteronephrosis with a severely distended bladder. This suggests a bladder outlet obstruction. 3.Distended gallbladder. 4. Additional findings as described above. (1) Hypertension Hypertension type: essential hypertension Qualified Code(s): I10 - Essential (primary) hypertension
--- NOTE | 2018-11-28 18:00 | Hospitalist Progress Note ---
Date of Service November 28, 2018 Assessment & Plan (1) Duodenal perforation: Status post postoperative day 2 repair of duodenal perforation Patient is recovering well from postop No evidence of sepsis or peritoneal infection Normal vitals, no fever or chills, continue empiric antibiotic with IV Zosyn Appreciate input help from surgical team 11/26/2018 Presented with severe epigastric abdominal pain, CT abdomen pelvis shows inflammation around and a small air-fluid level surrounding the thickened duodenal bulb, with small amount of pneumoperitoneum, small amount of upper abdominal ascites, suggestive of perforated duodenal ulcer History of NSAID use Continue with IV Protonix Surgery consulted patient was taken for emergent surgery for exploratory laparotomy for duodenal perforation (2) NSAID long-term use: Patient has been taking ibuprofen sometimes 4 times daily, has been taking for intermittent abdominal pain which has been ongoing for last several months, does not recall whether he takes with with meal or not Also been taking Motrin as needed as well Denies prior history of GERD, no EGD recently Does not take any PPI or [id number] H2 mally Presents with acute renal failure/ perforated duodenal ulcer-required explorator y laparotomy IV Protonix drip-discontinued, will change to IV Protonix twice daily will need emergent exploratory laparotomy for perforated duodenal ulcer-surgery team updated Patient is counseled repeatedly to avoid NSAIDs Will need outpatient GI follow-up (3) Hydronephrosis: CT abdomen pelvis shows severe bilateral hydronephrosis with suggestive of bladder outlet obstruction Has Bynum catheter placed Appreciate input from urology, Recommend continue Bynum catheter for drainage during hospital admission May require intermittent self straight cath on discharge Will need continued outpatient urology follow-up Nephrology consulted as creatinine remains elevated2, after Bynum catheter drainage and IV resuscitation (4) Acute urinary retention: Secondary to acute bladder outlet obstruction Continue Bynum catheter for urinary drainage Urology consult appreciated (5) Acute renal failure: Acute renal failure with elevated creatinine more than 2 multifactorial In the setting of dehydration/poor p.o. intake for severe abdominal pain for past few days, duodenal perforation, chronic NSAID use, bladder outlet obstruction Bynum placed for urinary drainage Continued with IV aggressive IV fluid resuscitation Patient got IV contrast for CT abdomen pelvis, Nephrology consult appreciated creatinine to 1.8 New IV fluids avoid NSAIDs (6) Hypertensive urgency: Hold p.o. Norvasc for acute abdomen,duodenal perforation Ordered PRN IV hydralazine CODE STATUS: Full code DVT prophylaxis SCD and teds Avoid pharmacological anticoagulation status post exploratory laparotomy Disposition: Expected to be discharged home when medically stable Patient follows with [facility] [place] Subjective NG draining bilious drainage Abdominal pain controlled with as needed pain medications No fever or chills Physical Exam Constitutional: WD/WN, vitals as above no acute distress Eyes: PERRL, conjunctivae normal, anicteric sclerae Neck: trachea midline, no thyromegaly normal visual inspection Respiratory: normal respiratory effort, lungs clear to auscultation Cardiovascular: RRR, no murmur, no edema Gastrointestinal (Abdomen): Percussion/Palpation: + abdomen tender (Epigastric tenderness) and + guarding Musculoskeletal: no cyanosis or clubbing, extremities motor strength 5/5 Skin: no rashes, warm and dry Neurologic: PERRL, EOMI, accommodation nl, no face palsy, no dysarthria Psychiatric: A+Ox3, euthymic affect Results & Data Vital Signs (Past 12 Hours) Vital Signs Temp Pulse Resp BP BP Pulse Ox 11/28/18 15:11 37.1 C 105 H 18 160/89 H 94 11/28/18 11:18 36.7 C 111 H 18 160/90 H 92 11/28/18 07:00 36.7 C 108 H 18 192/98 H 94
[2018-11-29 07:36] LABS: Hematocrit (blood only) 35.4 % (42-52); Mean Corpuscular Hgb Conc 33.9 g/dL (32-36); Mean Corpuscular Volume 98.6 fL (80-100); Mean Platelet Volume 11.2 fL (7.4-10.4); Platelet Count 177 K/uL (130-400); RDW Standard Deviation 50.4 fL (36.4-46.3); Red Blood Count 3.59 M/uL (4.7-6.1); White Blood Count 10.62 K/uL (4.8-10.8)
[2018-11-29] MEDS: SODIUM CHLORIDE 0.9% 1000ML 1,000 ML IV SCH ×3 (07:43→23:47)
--- NOTE | 2018-11-29 07:47 | Anesthesiology Progress Note ---
Date of Service November 29, 2018 Anesthesia Post Procedure Vital Signs Vital Signs: Temp Pulse Resp BP BP Pulse Ox 11/29/18 02:54 96 H 154/91 H 11/28/18 23:10 36.7 C 91 H 18 171/88 H 92 11/28/18 15:11 37.1 C 105 H 18 160/89 H 94 11/28/18 11:18 36.7 C 111 H 18 160/90 H 92 Pain Intensity Lower Abdomen: Pain Intensity: 7 Abdomen: Pain Intensity: 8 Notes Mental Status: alert / awake / arousable and participated in evaluation Nausea / Vomiting: adequately controlled Pain: adequately controlled Airway Patency, RR, SpO2: stable & adequate BP & HR: stable & adequate Hydration State: stable & adequate
[2018-11-29] MEDS: PIPERACILLIN/TAZOBACTAM 3.375 GM/115 ML BAG IV SCH ×3 (07:49→23:48)
[2018-11-29] MEDS: NICOTINE 14 MG/24 HR PATCH TD SCH (07:50)
--- NOTE | 2018-11-29 07:50 | Anesthesiology Progress Note ---
Date of Service November 29, 2018 Anesthesia Post Procedure Vital Signs Vital Signs: Temp Pulse Resp BP BP Pulse Ox 11/29/18 02:54 96 H 154/91 H 11/28/18 23:10 36.7 C 91 H 18 171/88 H 92 11/28/18 15:11 37.1 C 105 H 18 160/89 H 94 11/28/18 11:18 36.7 C 111 H 18 160/90 H 92 Pain Intensity Lower Abdomen: Pain Intensity: 7 Abdomen: Pain Intensity: 8 Notes Mental Status: alert / awake / arousable and participated in evaluation Nausea / Vomiting: adequately controlled Pain: adequately controlled Airway Patency, RR, SpO2: stable & adequate BP & HR: stable & adequate Hydration State: stable & adequate Anesthetic Complications: no major complications apparent and Pt Satisfied with anesthetic care
[2018-11-29] MEDS: HYDROmorphone INJ 1 MG/ML SYRINGE IV PRN ×3 (07:55→23:55)
--- NOTE | 2018-11-29 08:08 | Surgery Progress Note ---
Date of Service November 29, 2018 Assessment & Plan (1) Duodenal perforation: POD # 3 s/p ex lap repair of duodenal ulcer with Jonathan patch -vitals stable, afebrile - Leukocytosis resolved - post op pain moderate, controlled - samantha drains with serous output - NGT with thick bilious output - adequate urine output (outlet obstruction/ bilateral hydroneprhosis) Upper GI: 11/29/2018 Extensive gastric wall edema of the antrum. This does not result in obstruction. Pyloric ulceration not excluded though the appearance of the pylorus may be due to tortuosity or postoperative changes. Plan: Continue IV Diluadid prn pain With do upper GI with gastrografin via NGT to rule out leak , if negative will advance to sips of clears continue samantha drains to bulb suction Continue NPO for now Continue IV fluids Continue Bynum catheter to gravity Continue IV zofran as needed Continue IV Protonix, recommend BID can transition to oral BID once taking PO well. He will need BID oral dosing for a few months and gastroenterology follow-up for EGD. Continue SCDs and Incentive spirometry Addendum 11/29/2018 at 2:19 pm Upper GI series reviewed. Given edema of gastric antrum and pylorus, plan to keep NGT to LIS for today and keep NPO Continue IV Protonix 40 mg BID Repeat am labs Will determine removal of NGT based on NG output tomorrow and start clears Dr. Dumont has seen patient, agrees with above Subjective feeling slightly better today than yesterday abdominal pain persistent, slightly better, pain at drain sites, dilaudid helping passing gas no bowel movement no n/v no chest pain/shortness of breath ambulating with mild dizziness that resolves Physical Exam Constitutional: WD/WN, vitals as above no acute distress and not ill appearing Respiratory: normal respiratory effort, lungs clear to auscultation Cardiovascular: RRR, no murmur, no edema Gastrointestinal (Abdomen): Inspection/Auscultation: + abdominal surgical drain present (serous drainage) and + hypoactive bowel sounds; abdomen not distended and + abnormal bowel sounds Percussion/Palpation: + abdomen tender (Right side at drain sites) and abdomen soft; no guarding and abdomen not rigid Skin: no rashes, warm and dry + incision (Covered with dry dressing clean and intact) Psychiatric: Orientation: alert and oriented x 3 Results & Data Vital Signs (Past 12 Hours) Vital Signs Temp Pulse Pulse Resp BP Pulse Ox 11/29/18 07:56 36.8 C 93 H 20 172/92 H 92 11/29/18 02:54 96 H 154/91 H 11/28/18 23:10 36.7 C 91 H 18 171/88 H 92 Laboratory Results 11/29/18 11/29/18 11/28/18 Range/Units 06:50 06:50 09:53 WBC 10.62 (4.8-10.8) K/uL RBC 3.59 L (4.7-6.1) M/uL Hgb 12.0 L (14.0-18.0) g/dL Hct 35.4 L (42-52) % MCV 98.6 (80-100) fL MCH 33.4 (25-34) pg MCHC 33.9 (32-36) g/dL RDW Std Deviation 50.4 H (36.4-46.3) fL RDW Coeff of Carla 14.0 (11.5-14.5) % Plt Count 177 (130-400) K/uL MPV 11.2 H (7.4-10.4) fL Sodium Pending Potassium Pending Chloride Pending Carbon Dioxide Pending Anion Gap Pending BUN Pending Creatinine Pending Est Cr Clr Drug Dosing Pending Est GFR ( Amer) Pending Est GFR (Non-Af Amer) Pending BUN/Creatinine Ratio Pending Glucose Pending Lactate (0.4-2.0) mmol/L Calcium Pending Procalcitonin 9.66 H (0-0.5) ng/ml Crossmatch 11/28/18 11/26/18 Range/Units 09:53 00:38 WBC (4.8-10.8) K/uL RBC (4.7-6.1) M/uL Hgb (14.0-18.0) g/dL Hct (42-52) % MCV (80-100) fL MCH (25-34) pg MCHC (32-36) g/dL RDW Std Deviation (36.4-46.3) fL RDW Coeff of Carla (11.5-14.5) % Plt Count (130-400) K/uL MPV (7.4-10.4) fL Sodium Potassium Chloride Carbon Dioxide Anion Gap BUN Creatinine Est Cr Clr Drug Dosing Est GFR ( Amer) Est GFR (Non-Af Amer) BUN/Creatinine Ratio Glucose Lactate 1.0 (0.4-2.0) mmol/L Calcium Procalcitonin (0-0.5) ng/ml Crossmatch See Detail Diagnostic Findings FL upper GI series wo air CLINICAL HISTORY: 63 years-old Male presenting with w gastrografin s/p duodenal ulcer repair r/o leak. TECHNIQUE: A standard air contrast upper GI series was performed. Spot images of the esophagus and stomach were obtained in multiple obliquities both upright and prone. COMPARISON: CT from 11/26/2018. FINDINGS: Nasogastric tube terminates in the gastric body with side hole located within the gastric lumen. Surgical drains in place in the upper and lower abdomen. Moderate stool burden in the right colon. Midline skin cassia noted. Oral contrast was administered via the nasogastric tube. Normal opacification of the gastric fundus and body. Poor opacification of the distal body and antrum likely indicating postoperative gastric edema. Contrast passes through the antrum into the pylorus and into the duodenum. No evidence of peritoneal spillage. There is a questionable outpouching in the region of the gastric pylorus, ulceration not excluded. The appearance of the duodenum suggest two passages though this could be due to postoperative edema the wall. Finally, overhead radiograph at the conclusion of the exam further demonstrates no evidence of holdup of contrast and no peritoneal leak. Fluoroscopy dosage (mGy): Not available. Fluoroscopy time: 0.7 minutes. Number or time of high level fluoroscopy (HLF), digital spot, or digital subtraction images: 11. IMPRESSION: 1. No evidence of leak. 2. Extensive gastric wall edema of the antrum. This does not result in obstruction. 3. Pyloric ulceration not excluded though the appearance of the pylorus may be due to tortuosity or postoperative changes. 4. Postoperative changes of the proximal duodenum. A follow-up upper GI examination is recommended after of immediate postoperative edema resolution to ensure the absence of an underlying residual ulceration.
[2018-11-29 08:18] LABS: Calcium 8.5 mg/dl (8.5-10.1); Creatinine Clr Calc Pharmacy 53.4 ml/min; Est GFR (African American) 51.9; Est GFR (Non-African American) 44.8; Potassium 3.9 mmol/L (3.5-5.1)
--- NOTE | 2018-11-29 11:13 | Fluoroscopy Report ---
FL upper GI series wo air CLINICAL HISTORY: 63 years-old Male presenting with w gastrografin s/p duodenal ulcer repair r/o leak . TECHNIQUE: A standard air contrast upper GI series was performed. Spot images of the esophagus and s tomach were obtained in multiple obliquities both upright and prone. COMPARISON: CT from 11/26/2018. FINDINGS: Nasogastric tube terminates in the gastric body with side hole located within the gastric lumen. Surg ical drains in place in the upper and lower abdomen. Moderate stool burden in the right colon. Midlin e skin cassia noted. Oral contrast was administered via the nasogastric tube. Normal opacification of the gastric fundus a nd body. Poor opacification of the distal body and antrum likely indicating postoperative gastric jayde ma. Contrast passes through the antrum into the pylorus and into the duodenum. No evidence of periton eal spillage. There is a questionable outpouching in the region of the gastric pylorus, ulceration no t excluded. The appearance of the duodenum suggest two passages though this could be due to postopera tive edema the wall. Finally, overhead radiograph at the conclusion of the exam further demonstrates no evidence of holdup of contrast and no peritoneal leak. Fluoroscopy dosage (mGy): Not available. Fluoroscopy time: 0.7 minutes. Number or time of high level fluoroscopy (HLF), digital spot, or digital subtraction images: 11. IMPRESSION: 1. No evidence of leak. 2. Extensive gastric wall edema of the antrum. This does not result in obstruction. 3. Pyloric ulceration not excluded though the appearance of the pylorus may be due to tortuosity or postoperative changes. 4. Postoperative changes of the proximal duodenum. A follow-up upper GI examination is recommended a fter of immediate postoperative edema resolution to ensure the absence of an underlying residual ulce ration. Electronically signed by: Carrington Marshall M.D. 11/29/2018 11:12 AM
[2018-11-29] MEDS: PANTOprazole 40 MG in SYRINGE 0 ML IV SCH ×2 (12:02→21:09)
--- NOTE | 2018-11-29 15:47 | Hospitalist Progress Note ---
Date of Service November 29, 2018 Assessment & Plan (1) Duodenal perforation: Status post postoperative day #3 repair of duodenal perforation Patient is recovering well from postop/on continued NG suction No evidence of sepsis or peritoneal infection Normal vitals, no fever or chills, continue empiric antibiotic with IV Zosyn Appreciate input help from surgical team Upper GI series: Done this morning IMPRESSION: 1. No evidence of leak. 2. Extensive gastric wall edema of the antrum. This does not result in obstruction. 3. Pyloric ulceration not excluded though the appearance of the pylorus may be due to tortuosity or postoperative changes. 4. Postoperative changes of the proximal duodenum. A follow-up upper GI examination is recommended after of immediate postoperative edema resolution to ensure the absence of an underlying residual ulceration -Due to severe gastric wall and antrum edema, surgery team suggested to continue NG suction/bowel rest -Continue IV Protonix twice daily Recommends GI evaluation 11/26/2018 Presented with severe epigastric abdominal pain, CT abdomen pelvis shows inflammation around and a small air-fluid level surrounding the thickened duodenal bulb, with small amount of pneumoperitoneum, small amount of upper abdominal ascites, suggestive of perforated duodenal ulcer History of NSAID use Patient been taking Motrin for his lower abdominal pain in the last 2 to 3 days took 4-6 tablets a day with or without food Patient remains very irritated and frustrated for ongoing hospital admission Also upset-says he has not taken that many Motrin(took exactly per direction on the bottle), that would cause him to have stomach ulcer or kidney failure Reports of intermittent lower abdominal pain for years, Never had a EGD in past, had not been taking any [id number] PPI or H2 mally Patient is a heavy smoker smokes more than a pack cigarettes a day, denies of any recent alcohol use (2) NSAID long-term use: Patient has been taking ibuprofen sometimes 4 times daily, has been taking for intermittent abdominal pain which has been ongoing for last several months, does not recall whether he takes with with meal or not Also been taking Motrin as needed as well Denies prior history of GERD, no EGD in past Does not take any PPI or [id number] H2 mally Presents with acute renal failure/ perforated duodenal ulcer-required exploratory laparotomy IV Protonix drip-discontinued, will change to IV Protonix twice daily will need emergent exploratory laparotomy for perforated duodenal ulcer-surgery team updated Patient is counseled repeatedly to avoid NSAIDs Patient will need GI evaluation (3) Peptic ulcer disease: History of chronic epigastric, abdominal pain Risk for peptic ulcer disease: Chronic heavy smoker more than 1 pack cigarettes a day Had intentional loss of 100 pound weight in the last 1 hour with dietary modification and exercise Reports of chronic epigastric, abdominal pain Never utilized any outpatient PPI or H2 mally Or had any GI follow-up or EGD done No report of any dark stool Presents with acute abdomen with duodenal perforation requiring emergent exploratory laparotomy Upper GIs series shows extensive gastric antral wall inflammation/edema suggestive of chronic peptic ulcer disease Patient was initially treated with IV Protonix drip H&H remained stable, no evidence of GI bleed noted On IV Protonix twice daily Patient will need GI evaluation And long-term p.o. PPI treatment (4) Hydronephrosis: CT abdomen pelvis shows severe bilateral hydronephrosis with suggestive of bladder outlet obstruction Bynum catheter was placed in the ER with adequate drainage Appreciate input from urology-possible obstruction secondary to prostatic hyperplasia, PSA level within normal limit Patient will need chronic indwelling Bynum catheter upon discharge from hospital Urology clinic will schedule outpatient follow-up (5) Acute urinary retention: Secondary to acute bladder outlet obstruction Continue Bynum catheter for urinary drainage Urology consult appreciated (6) Acute renal failure: Acute renal failure with elevated creatinine more than 2 multifactorial In the setting of dehydration/poor p.o. intake for severe abdominal pain for past few days, duodenal perforation, chronic NSAID use, bladder outlet obstruction Bynum placed for urinary drainage Continued with IV aggressive IV fluid resuscitation Patient got IV contrast for CT abdomen pelvis, Nephrology consult appreciated Creatinine continues to improve 1.6 today, To new monitor electrolytes, and avoid NSAIDs and contrast studies (7) Hypertensive urgency: As per , patient is reluctant to take any medication, does not follow- up with physician Has stopped taking blood pressure medications for some time Ordered PRN IV hydralazine BP improved, patient will need adjustment of blood pressure medications when able to tolerate p.o. CODE STATUS: Full code DVT prophylaxis SCD and teds Avoid pharmacological anticoagulation status post exploratory laparotomy Disposition: Expected to be discharged home when medically stable Patient follows with [facility] at [place] Subjective NG suction has minimized, Has soreness around surgical area and abdomen, no acute pain Afebrile No nausea vomiting Physical Exam Constitutional: WD/WN, vitals as above no acute distress Eyes: PERRL, conjunctivae normal, anicteric sclerae Neck: trachea midline, no thyromegaly normal visual inspection Respiratory: normal respiratory effort, lungs clear to auscultation Cardiovascular: RRR, no murmur, no edema Gastrointestinal (Abdomen): Percussion/Palpation: + abdomen tender (Epigastric tenderness) and + guarding Musculoskeletal: no cyanosis or clubbing, extremities motor strength 5/5 Skin: no rashes, warm and dry Neurologic: PERRL, EOMI, accommodation nl, no face palsy, no dysarthria Psychiatric: A+Ox3, euthymic affect Results & Data Vital Signs (Past 12 Hours) Vital Signs Temp Pulse Pulse Resp BP BP Pulse Ox 11/29/18 15:38 36.7 C 95 H 18 166/93 H 92 11/29/18 07:56 36.8 C 93 H 20 172/92 H 92 (1) Hydronephrosis Hydronephrosis type: unspecified Qualified Code(s): N13.30 - Unspecified hydronephrosis (2) Acute renal failure Acute renal failure type: with acute tubular necrosis Qualified Code(s): N17.0 - Acute kidney failure with tubular necrosis
--- NOTE | 2018-11-29 17:22 | Nephrology Progress Note ---
Date of Service November 29, 2018 Assessment & Plan (1) Renal insufficiency: renal insufficiency, chronicity unknown. last known creatinine prior to admission was 1.2 in 07/2017. Presenting creatinine 2.1, now trending down to 1.6. pt taking qid nsaids x days (per pt to me not months) prior to admission. also w/ hx of uncontrolled HTN, moderate-severe BL hydroureteronephrosis now s/p decompression w/ lovett; also s/p IV contrast on admission. will needs ckqg-[id number]-[id number] of follow up to establish new baseline creatinine. his chemistries and volume status today are acceptable, though mild hyperchloremia noted w/ labs and NS therapy and persistent. he is polyuric > not uncommon after relieving obstruction; also receiving heavy salt loads w/ IVF and abtx. -daily bmp while in house -repeat UACM only if renal function worsens -NS at 125 ml hourly remains reasonable IVF for now; may need to switch to 1/2NS soon -cont strict I/O -no nsaids now or in future -also with uncontrolled HTN (see below) -ensure post d/c urology f/u (2) Hypertension: pt with uncontrolled BP in house (likely a component here of pain) as well as last spring. he is strict NPO currently. bp a bit improved today -needs to avoid nsaids indefinitely -control pain -agree w/ IV hydralazine discussed w/ dr caro -pt declines higher dose nicotine patch at this time; denies other recent substance use but would monitor for withdrawal -consider when taking po low dose beta mally and/or calcium channel mally -avoid DEBBIE/ARB, diuretics for now Subjective just back from imaging study when I saw him this am at about 11. pain a bit better controlled today but still ruq/epigastric severe; no leak on upper gi series; BL neuropathy of feet. Review of Systems Review of Systems: All systems reviewed & are unremarkable except as noted in HPI & below Respiratory: + cough; no dyspnea Cardiovascular: no chest pain, no palpitations and no edema Gastrointestinal: as per Subjective / HPI + flatus no stool Genitourinary: + problem reported (dislikes lovett; does not understand indication) Neurologic: + paresthesia (BL feet) Physical Exam Constitutional: well developed, well nourished and + acute distress (mild from pain) on RA Eyes: EOM intact bilaterally ENMT: Ears: no external ear abnormality Nose: no external nose abnormality Mouth: + dry oral mucous membranes Neck: no nuchal rigidity Respiratory: normal respiratory effort Auscultation: lungs clear to auscultation bilaterally and + diminished lung sounds Cardiovascular: Rate/Rhythm: regular rhythm and + tachycardic (in 90s) Extremities: no edema Gastrointestinal (Abdomen): Inspection/Auscultation: + abdomen distended (slight) and + hypoactive bowel sounds Percussion/Palpation: abdomen soft; abdomen nontender drain present Musculoskeletal: Extremities: strength 5/5 throughout Skin: no rashes, warm and dry Neurologic: wants blanket off his feet Psychiatric: Orientation: alert, oriented x 3 and cooperative Eye Contact: good eye contact Speech: normal rate/rhythm/volume of speech Affect: + anxious affect Insight: good insight Judgement: good judgement Genitourinary: lovett w/ ample urine Results & Data Vital Signs (Past 12 Hours) Vital Signs Temp Pulse Pulse Resp BP BP Pulse Ox 11/29/18 16:44 159/74 H 11/29/18 15:38 36.7 C 95 H 18 166/93 H 92 11/29/18 07:56 36.8 C 93 H 20 172/92 H 92 Laboratory Results Abnormal lab results 11/29/18 11/29/18 Range/Units 06:50 06:50 RBC 3.59 L (4.7-6.1) M/uL Hgb 12.0 L (14.0-18.0) g/dL Hct 35.4 L (42-52) % RDW Std Deviation 50.4 H (36.4-46.3) fL MPV 11.2 H (7.4-10.4) fL Chloride 112 H (98-107) mmol/L Creatinine 1.62 H (0.6-1.4) mg/dl (1) Hypertension Hypertension type: essential hypertension Qualified Code(s): I10 - Essential (primary) hypertension
[2018-11-29] MEDS: HydrALAZINE HCL 20 MG/ML VIAL IV PRN (23:48)
[2018-11-30 07:58] LABS: Hematocrit (blood only) 36.5 % (42-52); Hemoglobin 12.3 g/dL (14.0-18.0); Mean Corpuscular Hgb Conc 33.7 g/dL (32-36); Mean Corpuscular Volume 100.6 fL (80-100); Mean Platelet Volume 10.3 fL (7.4-10.4); Platelet Count 181 K/uL (130-400); RDW Standard Deviation 51.5 fL (36.4-46.3); Red Blood Count 3.63 M/uL (4.7-6.1); White Blood Count 9.08 K/uL (4.8-10.8)
[2018-11-30 08:34] LABS: BUN Creatinine Ratio 11.4 (10-20); Creatinine Clr Calc Pharmacy 56.9 ml/min; Est GFR (African American) 56.1; Est GFR (Non-African American) 48.4; Potassium 3.8 mmol/L (3.5-5.1)
[2018-11-30] MEDS: PIPERACILLIN/TAZOBACTAM 3.375 GM/115 ML BAG IV SCH ×2 (08:45→15:57)
[2018-11-30] MEDS: NICOTINE 14 MG/24 HR PATCH TD SCH (08:50)
[2018-11-30] MEDS: PANTOprazole 40 MG in SYRINGE 0 ML IV SCH ×2 (08:57→21:14)
[2018-11-30] MEDS ORDERED: ACETAMINOPHEN 325 MG TAB PO PRN (10:23)
[2018-11-30] MEDS: HYDROmorphone INJ 1 MG/ML SYRINGE IV PRN ×3 (10:31→21:12)
--- NOTE | 2018-11-30 11:02 | Surgery Progress Note ---
Date of Service November 30, 2018 Assessment & Plan (1) Duodenal perforation: POD # 4 s/p ex lap repair of duodenal ulcer with Jonathan patch - vitals stable, afebrile - Leukocytosis resolved - post op pain moderate, controlled - samantha drains with serous output - NGT with brown output, 1200 in last 24 hours, 350 last shift - adequate urine output (outlet obstruction/ bilateral hydroneprhosis) Upper GI: 11/29/2018 Extensive gastric wall edema of the antrum. This does not result in obstruction. Pyloric ulceration not excluded though the appearance of the pylorus may be due to tortuosity or postoperative changes. Plan: discontinue NGT and start clear liquids. Advised patient to go really slow with liquids. Any nausea/bloating advised to stop. No carbonation. Continue IV Diluadid prn pain, add po Tylenol prn pain continue samantha drains to bulb suction Continue IV fluids, switch to d51/2 NS + 20 kcl at 125 mls/hr Bynum catheter to gravity Continue IV zofran as needed Continue IV Protonix, recommend BID can transition to oral BID once taking PO well. He will need BID oral dosing for a few months and gastroenterology follow-up for EGD. Continue SCDs and Incentive spirometry Dr. Dumont has seen patient, agrees with above Subjective very thirsty passing gas, no bowel movement, feels gas moving in belly pain still present, improving slightly. Trying not to take pain medication no chest pain/sob ambulating hallway about 2 times per day Physical Exam Constitutional: WD/WN, vitals as above no acute distress and not ill appearing Respiratory: normal respiratory effort; no respiratory distress Gastrointestinal (Abdomen): Inspection/Auscultation: abdomen normal to inspection and normal bowel sounds; abdomen not distended Percussion/Palpation: + abdomen tender (at right samantha drain sites) and abdomen soft; no guarding and abdomen not rigid Skin: no rashes, warm and dry + incision (covered with dry dressing) Psychiatric: A+Ox3, euthymic affect Results & Data Vital Signs (Past 12 Hours) Vital Signs Temp Pulse Resp BP Pulse Ox 11/30/18 07:18 36.6 C 83 20 167/88 H 91 11/30/18 03:32 167/89 H 11/30/18 00:31 165/88 H 11/29/18 23:40 36.7 C 88 16 166/89 H 91
[2018-11-30] MEDS: D5W AND 1/2NSS + 20MEQ KCL 20 MEQ/1,000 ML BAG IV SCH ×2 (11:11→18:27)
[2018-11-30] MEDS: SODIUM CHLORIDE 0.9% 1000ML 1,000 ML IV SCH (11:20)
--- NOTE | 2018-11-30 12:11 | Gastrointestinal Consultation ---
Date of Consultation November 30, 2018 Assessment & Plan (1) Peptic ulcer disease: 63 year old male with history of HTN who presented on 11/25/18 w/ severe abdominal pain, CT w/ perforated duodenal s/p exploratory laparotomy w/ repair of anterior perforated duodenal ulcer clinically doing well. GI asked to evaluate for abnormal UGI series concerning for underlying inflammatory changes of the gastric wall and pyloric stenosis. He adamantly denies chronic NSAIDs use to me and suggests he only used 6-200 mg tablets of advil x 1 day. He is not on AC, no chronic steroid use, no ETOH but does use tobacco products daily. His HGB has been stable w/o evidence of black/bloody stools. - Would check stool for H.Pylori - Would recommend PPI 40 mg twice daily - He tells me this is not necessary - I again recommended use given presentation w/ perforated duodenal ulcer in addition to UGI series changes - Would recommend strict avoidance of NSAIDs - Would recommend tobacco cessation - Would recommend avoidance of ETOH - Would recommend OP EGD/Colonoscopy in 4-6 weeks - Will sign off. I will order OP EGD/Colonoscopy. Thank you for allowing us to participate in the care of this patient. Please call with any acute changes, questions or concerns. Please see addendum below with additional recommendation from my supervising physician. Present on Admission?: Yes Supervising Physician Co-Signing Physician Notes I have personally seen and examined the patient with EMELY Rodriguez. Her note reflects my exam and findings. I agree with her impression and plan. Patient should stay on BID PPI until out patient upper endoscopy. EGD in 4-6 weeks. Marcel Lazaro M.D. History of Present Illness Reason for Consultation: duodenal ulcer Requesting Physician: John Attending Physician: Leidy Lopez MD History of Present Illness 63 year old male with history of HTN who presented through the ED on 11/25/18 w/ severe upper abdominal pain and nausea x 3 [address] At [address] time [address] was concerning for a perforated duodenal ulcer and was taken to the OR 11/26/18 for an exploratory laparotomy w/ repair of anterior perforated duodenal ulcer. GI was asked to evaluate given abnormal UGI series w/ gastric wall edema, ulceration of the pylorus. Pt was seen and evaluated, chart reviewed. Notes he was in his typical state of health until about 2 weeks ago. Started having upper abd pain. This pain was constant, severe. Explained as sharp. No associated GERD, nausea, vomiting. He notes that he took NSAIDs x 1 day for this pain (6-200 mg tablets) which did not relieve the pain. As pain persisted he D/C the NSAIDs. Acutely worsened and sought ED care. Since repair of perforated ulcer, noted clinically improvement daily. Denies issues w/ chronic abd pain. No chronic GERD. Denies heartburn, regurgitation, dysphagia. No issues w/ post-prandially pain. No nausea, vomiting. Moves bowels well at baseline. Formed stool, no black or bloody stools. Suggets 100 lb weight loss in one year secondary to dietary changes and exercise regimen. No fever, chills, CP, SOB. AC: none NSAIDs: he tells me no chronic use, used 6-200 mg tablets x 1 day Tobacco: 1 PPD ETOH: none Steroids: none H.Pylori: unknown UGI Series: No evidence of leak.Extensive gastric wall edema of the antrum. This does not result in obstruction.Pyloric ulceration not excluded though the appearance of the pylorus may be due to tortuosity or postoperative changes. Postoperative changes of the proximal duodenum. A follow-up upper GI examination is recommended after of immediate postoperative edema resolution to ensure the absence of an underlying residual ulceration. ABD US: Moderate gallbladder distention. Sludge within the gallbladder. No shadowing gallstones.Small amount of perihepatic ascites.2.9 cm complex right renal cystic lesion. This is likely benign however a follow-up nonemergent renal protocol MRI is recommended once acute symptoms resolve. 4. Moderate to severe right hydronephrosis. CT: Inflammatory change and a small air-fluid level surrounding the thickened duodenal bulb. There is also a small amount of pneumoperitoneum. And a small amount of upper abdominal ascites. Therefore, these findings are highly suspicious for a perforated duodenal ulcer.Moderate to severe bilateral hydroureteronephrosis with a severely distended bladder. This suggests a bladder outlet obstruction. Distended gallbladder. EGD: none Colonoscopy: none Allergies Allergy/AdvReac Type Severity Reaction Status Date / Time No Known Allergies Allergy Unverified 11/26/18 00:21 Home Medications Home Medications Medication Instructions Recorded Confirmed Type No Known Home Medications 11/26/18 11/26/18 History Patient History Medical History No acute medical problems Family History Sister Colorectal cancer Social History Preferred Language: [place] Communication Ability: Effective Registered Nurse Nursery Required: No Beliefs That Will Affect Care: None Current Living Situation: Spouse Current Living Situation Comment: WITH Other Information That Helps Us Care for You: No Feels Safe at Home: Yes Safety Concerns: Feels Safe At This Time Smoking Status: Current every day smoker Tobacco Type: cigarettes Cigarettes Per Day: 20 PER DAY/1 PACK A DAY Do You Dip or Chew Tobacco: No Second Hand Exposure: No Tobacco Cessation Education Requested by Patient: No Hx Alcohol Use: Yes (REMOTE hx of daily "heavy" use; none currently) Hx Substance Use: Yes substance use type: does not use, former substance user, heroin and opiates Review of Systems Constitutional: no fever, no chills and no fatigue Respiratory: no cough, no dyspnea and no wheezing Cardiovascular: no chest pain, no radiating jaw, neck or arm pain, no dyspnea on exertion and no claudication Gastrointestinal: no abdominal pain, no early satiety, no coffee ground emesis, no hematemesis, no dysphagia, no cramping, no blood in stools and no melena Physical Exam Constitutional: WD/WN, vitals as above well nourished; no acute distress and not ill appearing (pt sitting upright in bed, sipping on water, on his computer) Neck: trachea midline Respiratory: normal respiratory effort; no respiratory distress Auscultation: no crackles and no wheezes Cardiovascular: Rate/Rhythm: regular rate and regular rhythm Heart Sounds: no click, no gallop and no murmur Gastrointestinal (Abdomen): Inspection/Auscultation: normal bowel sounds Percussion/Palpation: abdomen soft; abdomen nontender, no guarding, abdomen not rigid and no abdominal mass Skin: no rashes, warm and dry Results & Data Vital Signs (Past 12 Hours) Vital Signs Temp Pulse Resp BP Pulse Ox 11/30/18 07:18 36.6 C 83 20 167/88 H 91 11/30/18 03:32 167/89 H 11/30/18 00:31 165/88 H Laboratory Results 11/30/18 11/30/18 Range/Units 07:38 07:38 WBC 9.08 (4.8-10.8) K/uL RBC 3.63 L (4.7-6.1) M/uL Hgb 12.3 L (14.0-18.0) g/dL Hct 36.5 L (42-52) % MCV 100.6 H (80-100) fL MCH 33.9 (25-34) pg MCHC 33.7 (32-36) g/dL RDW Std Deviation 51.5 H (36.4-46.3) fL RDW Coeff of Carla 14.0 (11.5-14.5) % Plt Count 181 (130-400) K/uL MPV 10.3 (7.4-10.4) fL Sodium 147 H (136-145) mmol/L Potassium 3.8 (3.5-5.1) mmol/L Chloride 114 H (98-107) mmol/L Carbon Dioxide 24 (21-32) mmol/L Anion Gap 9.0 (3-11) BUN 17 (7-18) mg/dl Creatinine 1.52 H (0.6-1.4) mg/dl Est Cr Clr Drug Dosing 56.9 ml/min Est GFR ( Amer) 56.1 Est GFR (Non-Af Amer) 48.4 BUN/Creatinine Ratio 11.4 (10-20) Glucose 72 (70-99) mg/dl Calcium 9.0 (8.5-10.1) mg/dl
--- NOTE | 2018-11-30 18:24 | Hospitalist Progress Note ---
Date of Service November 30, 2018 Assessment & Plan (1) Duodenal perforation: Status post postoperative day #5 repair of duodenal perforation Patient is recovering well from postop/NG suction discontinued No evidence of sepsis or peritoneal infection Normal vitals, no fever or chills, continue empiric antibiotic with IV Zosyn Appreciate input help from surgical team Upper GI series: IMPRESSION: 1. No evidence of leak. 2. Extensive gastric wall edema of the antrum. This does not result in obstruction. 3. Pyloric ulceration not excluded though the appearance of the pylorus may be due to tortuosity or postoperative changes. 4. Postoperative changes of the proximal duodenum. A follow-up upper GI examination is recommended after of immediate postoperative edema resolution to ensure the absence of an underlying residual ulceration -Due to severe gastric wall and antrum edema, surgery team suggested to continue NG suction/bowel rest -Continue IV Protonix twice daily GI consulted, appreciate input Order for H. pylori antigen Continue with Protonix 40 mg twice daily Outpatient follow-up for EGD and colonoscopy 11/26/2018 Presented with severe epigastric abdominal pain, CT abdomen pelvis shows inflammation around and a small air-fluid level surr ounding the thickened duodenal bulb, with small amount of pneumoperitoneum, small amount of upper abdominal ascites, suggestive of perforated duodenal ulcer History of NSAID use Patient been taking Motrin for his lower abdominal pain in the last 2 to 3 days took 4-6 tablets a day with or without food Patient remains very irritated and frustrated for ongoing hospital admission Also upset-says he has not taken that many Motrin(took exactly per direction on the bottle), that would cause him to have stomach ulcer or kidney failure Reports of intermittent lower abdominal pain for years, Never had a EGD in past, had not been taking any [id number] PPI or H2 mally Patient is a heavy smoker smokes more than a pack cigarettes a day, denies of any recent alcohol use (2) Peptic ulcer disease: History of chronic epigastric, abdominal pain Risk for peptic ulcer disease: Chronic heavy smoker more than 1 pack cigarettes a day Had intentional loss of 100 pound weight in the last 1 hour with dietary modification and exercise Reports of chronic epigastric, abdominal pain Never utilized any outpatient PPI or H2 mally Or had any GI follow-up or EGD done No report of any dark stool Presents with acute abdomen with duodenal perforation requiring emergent exploratory laparotomy Upper GIs series shows extensive gastric antral wall inflammation/edema suggestive of chronic peptic ulcer disease Patient was initially treated with IV Protonix drip H&H remained stable, no evidence of GI bleed noted On IV Protonix twice daily Patient will need GI evaluation And long-term p.o. PPI treatment (3) Hydronephrosis: CT abdomen pelvis shows severe bilateral hydronephrosis with suggestive of bladder outlet obstruction Bynum catheter was placed in the ER with adequate drainage Appreciate input from urology-possible obstruction secondary to prostatic hyperplasia, PSA level within normal limit Patient will need chronic indwelling Bynum catheter upon discharge from hospital Urology clinic will schedule outpatient follow-up (4) Acute urinary retention: Secondary to acute bladder outlet obstruction Continue Bynum catheter for urinary drainage Urology consult appreciated (5) Acute renal failure: Acute renal failure with elevated creatinine more than 2 multifactorial In the setting of dehydration/poor p.o. intake for severe abdominal pain for past few days, duodenal perforation, chronic NSAID use, bladder outlet obst ruction Bynum placed for urinary drainage Continued with IV aggressive IV fluid resuscitation Patient got IV contrast for CT abdomen pelvis, Nephrology consult appreciated Creatinine continues to improve To new monitor electrolytes, and avoid NSAIDs and contrast studies (6) Hypertensive urgency: As per , patient is reluctant to take any medication, does not follow- up with physician Has stopped taking blood pressure medications for some time Ordered PRN IV hydralazine BP improved, patient will need adjustment of blood pressure medications when able to tolerate p.o. CODE STATUS: Full code DVT prophylaxis SCD and teds Avoid pharmacological anticoagulation status post exploratory laparotomy Disposition: Expected to be discharged home when medically stable Patient follows with [facility] at [facility] NG tube removed, started on clears tolerating well Patient seen ambulating in hallway, complains of soreness on the abdominal incision site No fever chills Able to pass gas, no bowel movement yet Physical Exam Constitutional: WD/WN, vitals as above no acute distress Eyes: PERRL, conjunctivae normal, anicteric sclerae Neck: trachea midline, no thyromegaly normal visual inspection Respiratory: normal respiratory effort, lungs clear to auscultation Cardiovascular: RRR, no murmur, no edema Gastrointestinal (Abdomen): Status post abdominal surgery, binder present, MARISA drain draining serosanguineous drainage Musculoskeletal: no cyanosis or clubbing, extremities motor strength 5/5 Skin: no rashes, warm and dry Neurologic: PERRL, EOMI, accommodation nl, no face palsy, no dysarthria Psychiatric: A+Ox3, euthymic affect Results & Data Vital Signs (Past 12 Hours) Vital Signs Temp Pulse Resp BP Pulse Ox 11/30/18 15:29 36.9 C 78 18 157/87 H 91 11/30/18 07:18 36.6 C 83 20 167/88 H 91 (1) Hydronephrosis Hydronephrosis type: unspecified Qualified Code(s): N13.30 - Unspecified hydronephrosis (2) Acute renal failure Acute renal failure type: with acute tubular necrosis Qualified Code(s): N17.0 - Acute kidney failure with tubular necrosis
[2018-11-30] MEDS: D5W NORMOSOL-R 1,000 ML IV SCH (21:28)
[2018-11-30] MEDS ORDERED: Nursing to Pharmacy Communication ONE (21:38)
[2018-12-01] MEDS: HYDROmorphone INJ 1 MG/ML SYRINGE IV PRN ×2 (00:54→08:55)
[2018-12-01] MEDS: PIPERACILLIN/TAZOBACTAM 3.375 GM/115 ML BAG IV SCH ×4 (00:54→23:24)
[2018-12-01] MEDS: D5W NORMOSOL-R 1,000 ML IV SCH ×3 (04:38→21:52)
[2018-12-01] MEDS: NICOTINE 14 MG/24 HR PATCH TD SCH (07:46)
[2018-12-01] MEDS: PANTOprazole 40 MG in SYRINGE 0 ML IV SCH ×2 (07:46→21:45)
[2018-12-01 08:17] LABS: Hematocrit (blood only) 37.2 % (42-52); Hemoglobin 12.5 g/dL (14.0-18.0); Mean Corpuscular Hgb Conc 33.6 g/dL (32-36); Mean Corpuscular Volume 100.3 fL (80-100); Mean Platelet Volume 10.4 fL (7.4-10.4); Platelet Count 198 K/uL (130-400); RDW Coefficient of Variation 13.7 % (11.5-14.5); RDW Standard Deviation 50.2 fL (36.4-46.3); Red Blood Count 3.71 M/uL (4.7-6.1); White Blood Count 9.66 K/uL (4.8-10.8)
[2018-12-01 08:51] LABS: BUN Creatinine Ratio 7.5 (10-20); Calcium 8.5 mg/dl (8.5-10.1); Creatinine Clr Calc Pharmacy 50.9 ml/min; Est GFR (Non-African American) 42.3; Potassium 3.3 mmol/L (3.5-5.1)
[2018-12-01] MEDS ORDERED: POTASSIUM CHLORIDE 20 MEQ TABCR PO ONE (09:35)
--- NOTE | 2018-12-01 12:32 | Surgery Progress Note ---
Date of Service pt is doing better, less abdominal pain, no nausea, no vomiting, he tolerated clear diet,pass gas, no BM yet, December 01, 2018 Assessment & Plan (1) Duodenal perforation: POD # 4 s/p ex lap repair of duodenal ulcer with Jonathan patch - vitals stable, afebrile - Leukocytosis resolved - post op pain moderate, controlled - samantha drains with serous output - NGT with brown output, 1200 in last 24 hours, 350 last shift - adequate urine output (outlet obstruction/ bilateral hydroneprhosis) Upper GI: 11/29/2018 Extensive gastric wall edema of the antrum. This does not result in obstruction. Pyloric ulceration not excluded though the appearance of the pylorus may be due to tortuosity or postoperative changes. Plan: discontinue NGT and start clear liquids. Advised patient to go really slow with liquids. Any nausea/bloating advised to stop. No carbonation. Continue IV Diluadid prn pain, add po Tylenol prn pain continue samantha drains to bulb suction Continue IV fluids, switch to d51/2 NS + 20 kcl at 125 mls/hr Bynum catheter to gravity Continue IV zofran as needed Continue IV Protonix, recommend BID can transition to oral BID once taking PO well. He will need BID oral dosing for a few months and gastroenterology follow-up for EGD. Continue SCDs and Incentive spirometry Dr. Dumont has seen patient, agrees with above 12/01/2018 12:36PM doing better, full liquid diet. change IV fluid rate to 50ml/h possible go home tomorrow, if pt tolerated full liquid diet, Subjective NG tube removed, started on clears tolerating well Patient seen ambulating in hallway, complains of soreness on the abdominal incision site No fever chills Able to pass gas, no bowel movement yet Physical Exam Constitutional: WD/WN, vitals as above well developed Neck: trachea midline, no thyromegaly Respiratory: normal respiratory effort, lungs clear to auscultation normal respiratory effort Cardiovascular: RRR, no murmur, no edema Rate/Rhythm: regular rate and regular rhythm Gastrointestinal (Abdomen): Percussion/Palpation: abdomen soft no distend, BS +, incision intact, no redness, mild incision pain, Neurologic: awake Psychiatric: Orientation: alert and oriented x 3 Results & Data Vital Signs (Past 12 Hours) Vital Signs Temp Pulse Resp BP Pulse Ox 12/01/18 07:50 37.1 C 80 20 148/84 H 90 Laboratory Results Abnormal lab results 12/01/18 12/01/18 Range/Units 07:55 07:55 RBC 3.71 L (4.7-6.1) M/uL Hgb 12.5 L (14.0-18.0) g/dL Hct 37.2 L (42-52) % MCV 100.3 H (80-100) fL RDW Std Deviation 50.2 H (36.4-46.3) fL Potassium 3.3 L (3.5-5.1) mmol/L Chloride 108 H (98-107) mmol/L Creatinine 1.70 H (0.6-1.4) mg/dl BUN/Creatinine Ratio 7.5 L (10-20) Glucose 121 H (70-99) mg/dl
[2018-12-01] MEDS ORDERED: POLYETHYLENE (MIRALAX) 17 GM PACK PO ONE (12:35)
[2018-12-01] MEDS: POLYETHYLENE (MIRALAX) 17 GM PACK ONE ×2 (13:09→13:50)
--- NOTE | 2018-12-01 20:48 | Hospitalist Progress Note ---
Date of Service December 01, 2018 Assessment & Plan (1) Duodenal perforation: (2) Peptic ulcer disease: Status post postoperative day #5 repair of duodenal perforation No post op complication No evidence of sepsis or peritoneal infection continue empiric antibiotic with IV Zosyn Continue management as per surgery Upper GI series showed no evidence of leak. Extensive gastric wall edema of the antrum. Due to severe gastric wall and antrum edema NG tube was discontinued as per surgery team Gastro on board recommended strict avoidance of NSAIDs, tobacco and alcohol cessation OP EGD/Colonoscopy in 4-6 weeks Continue with Protonix 40 mg twice daily Tolerated clear liquid diet (3) Hydronephrosis: (4) Acute urinary retention: CT abdomen pelvis shows severe bilateral hydronephrosis with suggestive of bladder outlet obstruction Bynum catheter was placed in the ER with adequate drainage Appreciate input from urology-possible obstruction secondary to prostatic hyperplasia, PSA level within normal limit Patient will need chronic indwelling Bynum catheter upon discharge from hospital Urology clinic will schedule outpatient follow-up (5) Acute renal failure: Acute renal failure with elevated creatinine 2.08 on admission In the setting of dehydration/poor p.o. intake for severe abdominal pain for past few days, duodenal perforation, chronic NSAID use, bladder outlet obstruction Bynum placed for urinary drainage Nephrology on board creatinine 1.7 today Continue IVF (6) Hypertensive urgency: As per , patient is reluctant to take any medication, does not follow- up with physician Has stopped taking blood pressure medications for some time BP improved Consider to add on oral BP med on discharge CODE STATUS: Full code DVT prophylaxis SCD and teds due to recent surgical procedure Disposition: Will discharge once medically stable Subjective Pt was seen and examined Lying in bed with no distress Pt said that pain is controlled Denies any chest pain, palpitation, dizziness and SOB Physical Exam Physical Exam: General- No acute distress Head- atraumatic Eyes- PERRL, EOMI, ENT- oropharynx clear Neck- supple, no JVD Lungs- clear to auscultation Heart- regular rhythm; no murmur Abdomen- normal bowel sounds, soft, +tender with palpation Extremities- no calf tenderness Neuro- alert, oriented x 3; PERRL, EOMI; no facial palsy; no dysarthria Skin- warm & dry Results & Data Vital Signs (Past 12 Hours) Vital Signs Temp Pulse Resp BP Pulse Ox 12/01/18 15:43 36.8 C 84 16 139/81 92 (1) Hydronephrosis Hydronephrosis type: unspecified Qualified Code(s): N13.30 - Unspecified hydronephrosis (2) Acute renal failure Acute renal failure type: with acute tubular necrosis Qualified Code(s): N17.0 - Acute kidney failure with tubular necrosis
[2018-12-01] MEDS: OXYCODONE/ACETAMINOPHEN 5mg/325mg TAB PO PRN (23:30)
[2018-12-02] MEDS: PANTOprazole 40 MG in SYRINGE 0 ML IV SCH (09:00)
[2018-12-02] MEDS: NICOTINE 14 MG/24 HR PATCH TD SCH (09:00)
[2018-12-02] MEDS: D5W NORMOSOL-R 1,000 ML IV SCH (09:00)
[2018-12-02] MEDS: PIPERACILLIN/TAZOBACTAM 3.375 GM/115 ML BAG IV SCH ×2 (09:02→16:04)
[2018-12-02] MEDS: OXYCODONE/ACETAMINOPHEN 5mg/325mg TAB PO PRN ×2 (09:03→19:06)
[2018-12-02 09:07] LABS: BUN Creatinine Ratio 5.6 (10-20); Calcium 8.1 mg/dl (8.5-10.1); Creatinine Clr Calc Pharmacy 53.4 ml/min; Est GFR (African American) 51.9; Est GFR (Non-African American) 44.8; Potassium 3.9 mmol/L (3.5-5.1)
[2018-12-02] MEDS ORDERED: DOCUSATE SODIUM 100 MG CAP PO SCH (10:30)
--- NOTE | 2018-12-02 11:10 | Surgery Progress Note ---
Date of Service December 02, 2018 Assessment & Plan (1) Duodenal perforation: POD # 6 s/p ex lap repair of duodenal ulcer with Jonathan patch - vitals stable, afebrile - Leukocytosis resolved - post op pain moderate, controlled - samantha drains with serous output - adequate urine output (outlet obstruction/ bilateral hydronephrosis) Upper GI: 11/29/2018 Extensive gastric wall edema of the antrum. This does not result in obstruction. Pyloric ulceration not excluded though the appearance of the pylorus may be due to tortuosity or postoperative changes. Plan: Continue PO Percocet and IV Dilaudid prn pain advance diet to low fiber continue samantha drains to bulb suction Decrease IV fluids to 50 mls/hr Bynum catheter to gravity add Colace 100 mg BID Continue IV zofran as needed Continue IV abx and d/c on discharge Continue Protonix BID, transition to oral Continue SCDs and Incentive spirometry If does well with low fiber diet, can consider discharge home later today. Will discuss with medicine. Patient will need to be discharged with Bynum and follow-up with Urology. Will need 40 mg Protonix BID and close follow-up with GI with EGD/Colonoscopy in 4-6 weeks. Avoidance of caffeine, smoking, alcohol, spicy foods, NSAIDs. Dr. Dumont has seen patient,agrees with above Addendum: Patient evaluated at 3:00 pm Tolerated low fiber diet without any abdominal pain, n/v abdominal pain controlled with Percocet + bowel movement today Ready to go home Okay for discharge from surgical standpoint Home with drains given high output, samantha drain teaching now discharge instruction reviewed Rx Percocet prn pain Rx Protonix 40 mg BID F/u surgical office next week, to call to set up appointment Subjective feeling better tolerated full liquids passing flatus, bowel movement yesterday abdominal pain controlled urinating via Bynum Physical Exam Constitutional: WD/WN, vitals as above no acute distress and not ill appearing Respiratory: normal respiratory effort; no respiratory distress Gastrointestinal (Abdomen): Inspection/Auscultation: + abdomen distended (mildly) and + abdominal surgical drain present ( pelvic drain with serous/ascitc fluid, RUQ drain minimal output) Percussion/Palpation: + abdomen tender (at incision site and drain sites) and abdomen soft; no guarding and abdomen not rigid Skin: no rashes, warm and dry + incision (clean/dry/intact, cassia intact) Psychiatric: Orientation: alert and oriented x 3 Results & Data Vital Signs (Past 12 Hours) Vital Signs Temp Pulse Resp BP Pulse Ox 12/02/18 07:00 37.0 C 83 16 135/89 90 12/01/18 23:38 37.5 C 87 16 152/94 H 92 Laboratory Results 12/02/18 Range/Units 07:50 Sodium 140 (136-145) mmol/L Potassium 3.9 D (3.5-5.1) mmol/L Chloride 106 (98-107) mmol/L Carbon Dioxide 31 (21-32) mmol/L Anion Gap 3.0 (3-11) BUN 9 (7-18) mg/dl Creatinine 1.62 H (0.6-1.4) mg/dl Est Cr Clr Drug Dosing 53.4 ml/min Est GFR ( Amer) 51.9 Est GFR (Non-Af Amer) 44.8 BUN/Creatinine Ratio 5.6 L (10-20) Glucose 108 H (70-99) mg/dl Calcium 8.1 L (8.5-10.1) mg/dl
--- NOTE | 2018-12-02 17:35 | Hospitalist Progress Note ---
Date of Service December 02, 2018 Assessment & Plan (1) Duodenal perforation: (2) Peptic ulcer disease: Status post postoperative day #6 repair of duodenal perforation No post op complication No evidence of sepsis or peritoneal infection On empiric antibiotic with IV Zosyn Continue management as per surgery Upper GI series showed no evidence of leak. Extensive gastric wall edema of the antrum. Due to severe gastric wall and antrum edema NG tube was discontinued as per surgery team Gastro on board recommended strict avoidance of NSAIDs, tobacco and alcohol cessation OP EGD/Colonoscopy in 4-6 weeks Continue with Protonix 40 mg twice daily Case discussed with surgery an ok from surgery standpoint to discharge home Tolerated clear liquid diet Follow up with surgery in 1 week (3) Hydronephrosis: (4) Acute urinary retention: CT abdomen pelvis shows severe bilateral hydronephrosis with suggestive of bladder outlet obstruction Bynum catheter was placed in the ER with adequate drainage Appreciate input from urology-possible obstruction secondary to prostatic hyperplasia, PSA level within normal limit Patient will need chronic indwelling Bynum catheter upon discharge from hospital Urology clinic will schedule outpatient follow-up (5) Acute renal failure: Acute renal failure with elevated creatinine 2.08 on admission In the setting of dehydration/poor p.o. intake for severe abdominal pain for past few days, duodenal perforation, chronic NSAID use, bladder outlet obstruction Bynum placed for urinary drainage Nephrology on board creatinine 1.7 today Continue IVF (6) Hypertensive urgency: As per , patient is reluctant to take any medication, does not follow- up with physician Has stopped taking blood pressure medications for some time BP stable Consider to add on oral BP med on discharge CODE STATUS: Full code DVT prophylaxis SCD and teds due to recent surgical procedure Disposition: Will discharge home today Subjective Pt was seen and examined Lying in bed with no distress Pt said that pain improves Tolerated diet Denies any chest pain, palpitation, dizziness and SOB Physical Exam Physical Exam: General- No acute distress Head- atraumatic Eyes- PERRL, EOMI, ENT- oropharynx clear Neck- supple, no JVD Lungs- clear to auscultation Heart- regular rhythm; no murmur Abdomen- normal bowel sounds, soft, +tender with palpation Extremities- no calf tenderness Pelvis- Bynum in place Neuro- alert, oriented x 3; PERRL, EOMI; no facial palsy; no dysarthria Skin- warm & dry Results & Data Vital Signs (Past 12 Hours) Vital Signs Temp Pulse Resp BP Pulse Ox 12/02/18 16:12 37.3 C 79 16 133/81 92 12/02/18 07:00 37.0 C 83 16 135/89 90 (1) Hydronephrosis Hydronephrosis type: unspecified Qualified Code(s): N13.30 - Unspecified hyd ronephrosis (2) Acute renal failure Acute renal failure type: with acute tubular necrosis Qualified Code(s): N17.0 - Acute kidney failure with tubular necrosis
--- NOTE | 2018-12-03 08:15 | Discharge Summary ---
Date of Service December 02, 2018 Admission HPI Per Admitting Provider History obtained from patient and records. Medical history significant for hypertension, ongoing tobacco abuse, past tobacco abuse. Few days history of achy upper abdominal pain going down with nausea, emesis. No chest pain, no S OB no cough symptoms. No fever, no chills. Good BM. Denies urinary retention. Patient admits to taking 's home Suboxone prescription due to intractable pain. Patient consulted ER for intractable symptoms. At the ER, Lovett catheter placed for urinary retention subsequently emptying 2 L of urine. Patient currently more comfortable. 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[employer] Admission Exam Per Admitting Provider GENERAL: Slightly uncomfortable, no respiratory distress, tremulous SKIN: Normal color, warm HEENT: [place] palpebral conjunctivae, no ptosis, dry buccal mucosa NECK : Supple, no tenderness CHEST : CTA, no tenderness HEART : Tachycardic, no obvious murmurs ABDOMEN: Some distention, epigastric tenderness EXTREMITIES : No LE swelling/tenderness, no other conspicuous deformities noted NEUROLOGIC : Coherent, no facial asymmetry, tremulous Principal Diagnosis Perforated duodenal ulcer Peptic ulcer disease: Hypertensive urgency Hydronephrosis Acute urinary retention Acute renal failure Discharge Exam General- No acute distress Head- atraumatic Eyes- PERRL, EOMI, ENT- oropharynx clear Neck- supple, no JVD Lungs- clear to auscultation Heart- regular rhythm; no murmur Abdomen- normal bowel sounds, soft, +tender with palpation Extremities- no calf tenderness Pelvis- Lovett in place Neuro- alert, oriented x 3; PERRL, EOMI; no facial palsy; no dysarthria Skin- warm & dry Discharge Data Allergies Allergy/AdvReac Type Severity Reaction Status Date / Time No Known Allergies Allergy Unverified 11/26/18 00:21 Consultations 11/26/18 02:02 ED Decision to Admit Stat 11/26/18 02:49 Consult Urology Routine 11/26/18 07:58 Consult General Surgery Stat 11/26/18 08:00 Consult General Surgery Routine 11/27/18 13:26 Consult Nephrology Routine 11/30/18 11:11 Consult Gastroenterology Routine Procedures Performed Operation Date: 11/26/18 10:10 Actual Procedures p Exploratory Laparotomy, Repair of duodenal ulcer perforation(Not Applicable) - Eligio Tracey MD [place] upper GI series wo air CLINICAL HISTORY: 63 years-old Male presenting with w gastrografin s/p duodenal ulcer repair r/o leak. TECHNIQUE: A standard air contrast upper GI series was performed. Spot images of the esophagus and stomach were obtained in multiple obliquities both upright and prone. COMPARISON: CT from 11/26/2018. FINDINGS: Nasogastric tube terminates in the gastric body with side hole located within the gastric lumen. Surgical drains in place in the upper and lower abdomen. Moderate stool burden in the right colon. Midline skin cassia noted. Oral contrast was administered via the nasogastric tube. Normal opacification of the gastric fundus and body. Poor opacification of the distal body and antrum likely indicating postoperative gastric edema. Contrast passes through the antrum into the pylorus and into the duodenum. No evidence of peritoneal spillage. There is a questionable outpouching in the region of the gastric pylorus, ulceration not excluded. The appearance of the duodenum suggest two passages though this could be due to postoperative edema the wall. Finally, overhead radiograph at the conclusion of the exam further demonstrates no evidence of holdup of contrast and no peritoneal leak. Fluoroscopy dosage (mGy): Not available. Fluoroscopy time: 0.7 minutes. Number or time of high level fluoroscopy (HLF), digital spot, or digital subtraction images: 11. IMPRESSION: 1. No evidence of leak. 2. Extensive gastric wall edema of the antrum. This does not result in obstruction. 3. Pyloric ulceration not excluded though the appearance of the pylorus may be due to tortuosity or postoperative changes. 4. Postoperative changes of the proximal duodenum. A follow-up upper GI e xamination is recommended after of immediate postoperative edema resolution to ensure the absence of an underlying residual ulceration. Electronically signed by: Carrington Marshall M.D. 11/29/2018 11:12 AM Dictated: 11/29/18 1108 Transcribed: 11/29/18 1108 Ordered Studies 11/26/18 00:03 CT abd pelvis IV con only Urgent 11/26/18 00:12 CT chest w con Urgent 11/26/18 02:46 US gallbladder Urgent 11/26/18 10:58 US - OR guided needle placemen Routine 11/29/18 10:00 FL upper GI series wo air Routine US gallbladder CLINICAL HISTORY: Abdominal pain. COMPARISON STUDY: CT of the abdomen and pelvis November 26, 2018. FINDINGS: Exam is compromised by suboptimal penetration. A small amount of perihepatic ascites is noted. There is no biliary ductal dilatation. The gallbladder is moderately distended. Sonographic Red sign could not be assessed for in this patient. There is sludge within the gallbladder. No shadowing stones are identified. The gallbladder wall thickness is normal. There are suspected tiny gallbladder polyps. The pancreas is obscured. There is moderate to severe right hydronephrosis. A complex 2.9 cm right renal cyst is noted. This contains echogenic foci without color flow. IMPRESSION: 1. Moderate gallbladder distention. Sludge within the gallbladder. No shadowing gallstones. 2. Small amount of perihepatic ascites. 3. 2.9 cm complex right renal cystic lesion. This is likely benign however a follow-up nonemergent renal protocol MRI is recommended once acute symptoms resolve. 4. Moderate to severe right hydronephrosis. Electronically signed by: Richard Ghosh M.D. 11/26/2018 8:07 AM Dictated: 11/26/18 08 Transcribed: 11/26/[address] WITH CONTRAST CT DOSE: 878.62 mGy.cm HISTORY: Acute severe epigastric abdominal pain severe epi pain TECHNIQUE: Multiaxial CT images of the chest were performed following the intravenous administration of contrast. A dose lowering technique was utilized adhering to the principles of ALARA. COMPARISON: CT abdomen and pelvis of same day. FINDINGS: Homogeneous thyroid. Trace pericardial effusion. The heart is normal in size. Coronary arterial calcifications are noted. There is no thoracic aortic aneurysm identified. Tortuosity of the descending thoracic aorta. Partially opacified pulmonary arterial tree is unremarkable. No adenopathy. No pneumothorax or pleural effusion. Emphysema. Mild dependent subsegmental bibasilar atelectasis. Mild cystic/varicose bronchiectasis of the upper lobes. Dependent bibasilar groundglass opacities suggest atelectasis. There is no overt pulmonary edema. 2 mm solid nodule of the right lung apex on image 50 series 6. 3 mm solid nodule right upper lobe on image 1:15 series 6. A few additional scattered solid nodules are seen measuring up to 3 mm. Central airways appear patent. No focal airspace consolidation typical for pneumonia. Scattered foci of pneumoperitoneum of the upper abdomen. Trace upper abdominal ascites. 9 mm hypodense lesion of the hepatic dome. Mild gallbladder distention. 2.2 cm cyst of the superior pole right kidney. Degenerative changes of the shoulders and spine. IMPRESSION: 1. Scattered foci of pneumoperitoneum compatible with perforated viscus. Please refer to CT abdomen and pelvis study of same day for further details. 2. Paraseptal emphysema with mild upper lobe cystic/varicose bronchiectasis. 3. There are a few scattered solid pulmonary nodules noted measuring up to 3 mm which are likely benign. 4. Dependent bibasilar groundglass densities suggest atelectasis. Please refer to below summary of Fleischner criteria recommendations for follow- up of incidental CT nodules (Haris Bautista, Guidelines for management of small pulmonary nodules detected on CT scans: A statement from the Fleischner Society, Radiology 237: [phone].) SOLID NODULES Multiple nodules size: <6 mm * Low risk patients: no routine follow-up * high risk patients: optional CT at 12 months Note: newly detected indeterminate nodule in persons 35 years of age or older. * Low risk patients: minimal or absent history of smoking and/or other known risk factors * high risk patients: history of smoking or of other known risk factors (e.g. first degree relative with lung cancer, or exposure to asbestos, radon, uranium) * if a nodule up to 8 mm is partly solid or is ground glass further follow-up is required after 24 months to exclude possible slow growing adenocarcinoma (YEIMI) The above report was generated using voice recognition software. It may contain grammatical, syntax or spelling errors. Electronically signed by: Andres Bardales M.D. 11/26/2018 8:05 AM Dictated: 11/26/18 0753 Transcribed: 11/26/18 0753 XR chest 1V portable HISTORY: Severe epigastric pain. COMPARISON: None. FINDINGS: Right basilar linear densities likely representing subsegmental atelectasis. Otherwise, the lungs are clear. No pleural effusions. No pneum othorax. The heart is normal in size. Tortuous thoracic aorta. IMPRESSION: Right basilar linear densities suggestive of subsegmental atelectasis. Otherwise, no acute process within the chest. Electronically signed by: Jameson Bailon M.D. 11/26/2018 7:27 AM Dictated: 11/26/18725 Transcribed: 11/26/[address] WITH IV CONTRAST CT DOSE: HISTORY: Severe abdominal pain. TECHNIQUE: Multiaxial CT images of the abdomen and pelvis were performed following the use of intravenous contrast. A dose lowering technique was utilized adhering to the principles of ALARA. COMPARISON STUDY: None. FINDINGS: Groundglass densities at the lung bases suggestive of mild dependent change. Small foci of pneumoperitoneum within the upper abdomen. Focal thickening and inflammatory change at the duodenal bulb. There appears to be a small focal ulceration at the duodenal bulb with a small air-fluid level best seen on image 150. Therefore, these findings likely represent a perforated duodenal ulcer. This likely results in the pneumoperitoneum. Small amount of upper abdominal ascites. The pancreas, spleen, and adrenal glands are unremarkable. Distended gallbladder. Hepatic and renal hypodense lesions. These favor cysts. No retroperitoneal lymphadenopathy. Moderate to severe bilateral hydroureteronephrosis to the level of the ureterovesical junctions. The bladder is also severely distended. Linear septation along the posterior aspect of the mid bladder. Therefore, the upper half of the bladder likely represents a large diverticulum. The prostate gland is normal in size. No evidence for bowel obstruction. Colonic diverticulosis. No evidence for diverticulitis. IMPRESSION: 1. Inflammatory change and a small air-fluid level surrounding the thickened duodenal bulb. There is also a small amount of pneumoperitoneum. And a small amount of upper abdominal ascites. Therefore, these findings are highly suspicious for a perforated duodenal ulcer. 2. Moderate to severe bilateral hydroureteronephrosis with a severely distended bladder. This suggests a bladder outlet obstruction. 3.Distended gallbladder. 4. Additional findings as described above. 5. These findings were discussed with Dr. Odonnell at 7:40 AM on 11/26/2018. Electronically signed by: Jameson Bailon M.D. 11/26/2018 7:45 AM Dictated: 11/26/18731 Transcribed: 11/26/18731 Hospital Course (1) Duodenal perforation: (2) Peptic ulcer disease: Status post postoperative day #6 repair of duodenal perforation No post op complication No evidence of sepsis or peritoneal infection On empiric antibiotic with IV Zosyn Continue management as per surgery Upper GI series showed no evidence of leak. Extensive gastric wall edema of the antrum. Due to severe gastric wall and antrum edema NG tube was discontinued as per surgery team Gastro on board recommended strict avoidance of NSAIDs, tobacco and alcohol cessation OP EGD/Colonoscopy in 4-6 weeks Continue with Protonix 40 mg twice daily Case discussed with surgery an ok from surgery standpoint to discharge home Tolerated clear liquid diet Follow up with surgery in 1 week (3) Hydronephrosis: CT abdomen pelvis shows severe bilateral hydronephrosis with suggestive of bladder outlet obstruction Lovett catheter was placed in the ER with adequate drainage Appreciate input from urology-possible obstruction secondary to prostatic hyperplasia, PSA level within normal limit Patient will need chronic indwelling Lovett catheter upon discharge from hospital Urology clinic will schedule outpatient follow-up (4) Acute urinary retention: CT abdomen pelvis shows severe bilateral hydronephrosis with suggestive of bladder outlet obstruction Lovett catheter was placed in the ER with adequate drainage Appreciate input from urology-possible obstruction secondary to prostatic hyperplasia, PSA level within normal limit Patient will need chronic indwelling Lovett catheter upon discharge from hospital Urology clinic will schedule outpatient follow-up (5) Acute renal failure: Acute renal failure with elevated creatinine 2.08 on admission In the setting of dehydration/poor p.o. intake for severe abdominal pain for past few days, duodenal perforation, chronic NSAID use, bladder outlet obstruction Lovett placed for urinary drainage Nephrology on board creatinine 1.7 today Continue IVF (6) Hypertensive urgency: As per , patient is reluctant to take any medication, does not follow- up with physician Has stopped taking blood pressure medications for some time BP stable Consider to add on oral BP med on discharge CODE STATUS: Full code DVT prophylaxis SCD and teds due to recent surgical procedure Disposition: Will discharge home today Total Time Total Time Spent Total Time Spent (In Minutes): 35 minutes Total Time Includes: Examination of the Patient, Discharge Planning, Medication Reconciliation, Communication With Other Providers and Other Discharge Plan Discharge Items Patient Disposition: Home - Self-Care Reason For Visit: HTN URGENCY,ARF Discharge Diagnosis: Perforated duodenal ulcer Hypertensive urgency Hydronephrosis Acute urinary retention Acute renal failure Condition: Fair Discharge Goals: Decrease discomfort, Improve disease control, Improve function and Increase independence Activity: Resume your previous activity Activity Comment: As tolerated Non-emergency contact: Primary Care Provider, Surgeon, Dormitory Maid and Urologist Call non-emergency contact if: you have any medication questions, your symptoms worsen, your pain is not controlled, your temperature is above 101, your wound has increased redness, your wound has increased drainage and your wound pain has increased Follow-up/Referrals: PCP,NO [Primary Care Provider] - Diet: Low Fiber Addtl Provider Instructions: Follow up with your primary care provider Dr. Pringle on 12/10 @ 9:45 AM Follow up with gastroenterology for outpatient colonoscopy in 4 to 6 weeks (Office will call you for the appointment Follow up with urology (please call to schedule for the appointment) Follow up with surgery in 1 week (Please call for follow up) Keep lovett catheter on discharge Do not drive or operate any machine while on narcotic Please hold narcotic if you become any lethargy or drowsiness Home with drains given high output, samantha drain teaching now Surgical discharge instructions: Activity: -No heavy lifting over 10 pounds for at least 6 weeks - No strenuous activity until cleared by surgeon - No driving while taking narcotic [place] medication or until you are pain free - Walking and light activity multiple times a day is recommended to prevent blood clots from forming in your legs Shower/bathing: - You may shower once drains are removed. Sponge bath and wash hair in meantime. - Once drains removed you may shower - No submerging incision underwater for 2 weeks (no bathing, swimming, or hot tubs) Dressing/incisional care: - You can leave midline incision open to air if there is no drainage. - You may want to keep dressing over drain sites as there can be drainage around tube - Surgical cassia will be removed in office - If you go home with surgical drains, record output amount and color at least three times a day and as needed. Keep record and bring to office with you. Medications: - You will be given prescription for narcotic pain medication (Percocet) as needed for moderate to severe pain. Take as directed. This medication may cause drowsiness or constipation. - You may take extra strength Tylenol as needed for mild pain. Can take 650 mg every 6 hours as needed - AVOID any NSAID based products (Ibuprofen, Aleve, Advil, aspirin) as these medication cause irritation on stomach and small bowel given ulcer perforation - You will need to take acid mally medication (Protonix) twice a day Diet: - Recommend low fiber diet for next week and then advance as tolerated - Given peptic ulcer disease, avoid spicy foods, alcohol, smoking, caffeine/soda products, highly acidic fruits or tomato based products. Follow-up - Follow-up in surgical office in 1 week for follow-up and drain removal. Please call office at [phone] to make an appointment. Prescriptions: New oxycodone-acetaminophen [Percocet] 5-325 mg Tablet 1 tab PO Q4H PRN (Reason: pain) Qty: 18 RF: 0 pantoprazole [Protonix] 40 mg tablet,delayed release (DR/EC) 40 mg PO BID Qty: 60 RF: 1 No Action No Known Home Medications RF: 0 Stand-Alone Forms: Call Back Authorization, [facility], Opioid Pain Management Krames/Other Patient Handouts: Probs Kidney, Syncope, Syncope Causes, Syncope Tx Prevent, Injury Acute Kidney Dc, Catheter Indwelling Urinary Dc, Tube Roberto Arauz Drainage Care, Leg Bag Care Dc, ED Catheter Care Lovett, ED Retention Urinary Male Discharge Orders: Discharge Order (Routine); Ordered 12/02/18 Ordered By: Adia Junior Admission Data Admit Date/Time: 11/26/18 02:48 Attending Provider: Adia Junior Admit Provider: Hank Cooper Primary Care Provider: PCP,NO Other Providers: Fabiano Duncan ; Natividad Odonnell ; Hank Cooper ; Rod Voss ; Fabiano Quintana ; Jose Estrada I. ; Dino Singleton ; Savannah Sims ; James Cary II ; Estela Pang ; Gaye Youssef ; Shan Skinner ; Maegan Hanna I ; Janina Henry ; Alecia Orellana ; Ozzie Pruitt ; Rajiv Zavala ; Mak Guzman ; Clarissa Bunch ; Yovani Luciano ; Marlin Burciaga ; Haider Ryan ; Alyssa Spence ; Javed Winslow ; Marcel Lazaro ; Jessica Chow ; Kenisha Bradford ; Delmi Tavera ; Elsi Ray ; Nick Rene ; Leidy Lopez Service: Medical Other Interventions: Discharge Summary Assessment (RN) Last Done: 12/02/18 20:09 DC Date/Time DO NOT enter until pt leaves facility: 12/02/18 21:50
== END 2018-12-02 21:50 | disposition home or self-care (01) | DRG 981 ==
LOC: ED 23:48 → SUATTDRO 11-26 02:48 → 2N 11-26 02:48 → 2E 11-26 12:49 → 3W 11-27 13:30